=== PATIENT | female | born 1935 | race Caucasian/White ===

== ENCOUNTER → 2016-10-14 | Outpatient (CLI) | payer BC, OTHER ==
[~2016-10-14] MED LIST: ACET-1175 PO; ALBU0.5N2 NEB; ASPI81TA28 PO; CHOL1000 PO; CHOL100010 PO; CRG625 PO; CZR25 PO; DLN/100 PO; FURO20TA PO; GUAI1TAB69 PO; INSU3INJ3 SC; IPRASOL4 INH; LCTXP PO; LEVO-459 PO; LOSA100T65 PO; LVMIPEN SC; MAGNSUS5 PO; MCRK20 PO; MCTP EXT; MGNO400 PO; NVLGI SC; NVLGI/PEN SC; NVLGIPEN SC; PHEN-310 PO; PRD10 PO; PRED20TA PO; RRALBUTNEB INH; SENN-58 PO; SIMV20TA2 PO; SODIENE PR; ZNTT/150 PO; ZRX25 PO
[2016-10-14 09:04] LABS: HEMATOCRIT 36.7 % (37-47); MEAN CORPUSCULAR HGB CONC 32.7 g/dl (32-36); MEAN PLATELET VOLUME 10.6 fL (7.4-10.4); PLATELET COUNT 165 K/uL (130-400); RED BLOOD COUNT 3.43 M/uL (4.2-5.4); WHITE BLOOD COUNT 14.34 K/uL (4.8-10.8)
[2016-10-14 09:14] LABS: ALT/SGPT 23 U/L (12-78); BLOOD UREA NITROGEN 30 mg/dl (7-18); BUN/CREATININE RATIO 33.8 (10-20); CALCIUM 9.1 mg/dl (8.5-10.1); CARBON DIOXIDE 32 mmol/L (21-32); CHLORIDE 100 mmol/L (98-107); CREATININE 0.88 mg/dl (0.60-1.20); GLUCOSE 99 mg/dl (70-99); POTASSIUM 4.9 mmol/L (3.5-5.1); SODIUM 142 mmol/L (136-145)
[2016-10-14 09:17] LABS: ALB/GLOB RATIO 0.8 (0.9-2); ALKALINE PHOSPHATASE 115 U/L (45-117); AST/SGOT 25 U/L (15-37)
[2016-10-14 11:44] LABS: BASO % 0.4 %; BASO ABS # 0.06 K/uL (0-0.2); COMPLETE YES; EOS % 5.8 %; IG% 0.3 %; LYMPH % 52.8 %; LYMPH ABS # 7.57 K/uL (1.2-3.4); MONO % 5.8 %; NEUT % 34.9 %; SMUDGE CELLS PRESENT
== END ==
LOC: C.LABCC 08:43
PROVIDERS: ATTEND Internal Medicine
DX: C85.10 Unspecified B-cell lymphoma, unspecified site (principal)

== ENCOUNTER → 2016-10-15 | Outpatient (CLI) | payer BC, OTHER ==
[2016-10-15 08:14] LABS: ESTIMATED AVERAGE GLUCOSE 128 mg/dl; HA1C FLAG Normal (Normal)
== END | disposition home or self-care (01) ==
LOC: C.LABCC 07:47
PROVIDERS: ATTEND Internal Medicine
DX: E11.9 Type 2 diabetes mellitus without complications (principal)

== ENCOUNTER 2016-11-12 09:55 | Inpatient (IN) | payer BC, OTHER ==
[2016-11-12] VITALS (21 sets, daily range): BP systolic 100–125; BP diastolic 54–72; PULSE 60–92; TEMP 36.8–37.2; O2SAT 93–97; BMI 49.7
[~2016-11-12] VITALS: Ht 149.9 cm; Wt 102.2 kg
[~2016-11-12 09:55] MED LIST changes: -CHOL1000 PO; -CZR25 PO; -GUAI1TAB69 PO; -INSU3INJ3 SC; -IPRASOL4 INH; -LCTXP PO; -MCTP EXT; -NVLGI/PEN SC; -NVLGIPEN SC; -PRD10 PO; -PRED20TA PO; -RRALBUTNEB INH; -ZRX25 PO
[2016-11-12] MEDS ORDERED: PIPERACILLIN/TAZOBACTAM 4.5 GM/100ML D5W IV STA (10:10)
[2016-11-12] MEDS ORDERED: SODIUM CHLORIDE 0.9% 1000ML 1,000 ML IV ONE (10:10)
[2016-11-12] MEDS ORDERED: ALBUT/IPRATROP 3MG/0.5MG NEB 3 ML VIAL ONE (10:13)
[2016-11-12] MEDS ORDERED: LEVAQUIN 750MG / 150ML D5W IV ONE (10:15)
--- NOTE | 2016-11-12 10:15 | DIAGNOSTIC IMAGING REPORT ---
CHEST ONE VIEW PORTABLE CLINICAL HISTORY: B 1 dyspnea COMPARISON STUDY: 04/18/2016 FINDINGS: Congestive heart failure. Moderate cardiomegaly. Probable left pleural effusion. IMPRESSION: Congestive heart failure. Electronically signed by: Michael Mock M.D. 11/12/2016 10:13 AM Dictated Date/Time: 11/12/2016 10:11 AM
[2016-11-12] MEDS ORDERED: FUROSEMIDE 40 MG/4 ML VIAL IV STA (10:17)
--- NOTE | 2016-11-12 10:18 | EMERGENCY ROOM VISIT NOTE ---
History Report prepared by Pam: Santana Gale Under the Supervision of: Dr. Fili House M.D. First contact with patient: 09:56 Chief Complaint: RESPIRATORY DISTRESS Stated Complaint: RESPIRATORY DISTRESS Nursing Triage Summary: pt is from [facility] staff believes pt in CHF pt sats 83% on 3 litters pt is on bipap Rhonchi and decrease lung sounds pt has hx of leukemia pt given duoneb, solumedrol and albuterol 3 plus pedal edema pt nonverbal on arrival to ER History of Present Illness The patient is a 81 year old female with a history of CHF who presents to the ED with complaints of acute respiratory distress. As per EMS, the patient was found by a home nurse in this condition. EMS notes that the patient has 1+ edema at baseline, which appears to be increased. The patient was started on CPAP en route. She was also given DuoNeb and Albuterol treatments and given 125 mg Solu-Medrol. The patient was recently diagnosed with pneumonia but is not believed to be on antibiotics. The patient has a history of dementia. Complete history is limited secondary to dyspnea. Source of History: EMS History Limited By: dyspnea Onset: this morning Position: other (respiratory) Quality: other (distress) Timing: other (acute) Review of Systems ROS is limited secondary to dyspnea. Past Medical & Surgical Medical Problems: (1) Acute respiratory failure (2) B-cell lymphoma (3) Diabetes (4) Hypertension Surgical Problems: (1) H/O: hysterectomy (2) S/P knee surgery (3) S/P thyroid surgery Family History Cancer Diabetes mellitus Gallbladder disease Heart disease Hypertension Seizures Social History Smoking Status: Unknown if Ever Smoked Alcohol Use: none Drug Use: none Marital Status: Housing Status: correction Occupation Status: retired Current/Historical Medications Scheduled Albuterol Sulf (Albuterol Sulfate), 0.5 MG INH Q4 Aspirin (Aspirin Ec), 81 MG PO DAILY Carvedilol (Carvedilol), 6.25 MG PO BID Cholecalciferol (Vitamin D3), 1,000 UNITS PO DAILY Furosemide (Lasix), 40 MG PO BID@1600 Guaifenesin (Mucinex Maximum Strength), 1,200 MG PO BID Insulin Aspart (Novolog Flexpen), 30 UNITS SC DAILY Insulin Aspart (Novolog Flexpen), 45 UNITS SC BID Insulin Aspart (Novolog Flexpen), SC prn Insulin Detemir (Levemir Flextouch), 20 UNITS SC BID Losartan Potassium (Cozaar), 100 MG PO DAILY Magnesium Oxide (Magnesium-Oxide), 400 MG PO QAM Phenytoin Sodium (Dilantin), 100 MG PO DAILY Phenytoin Sodium Extended (Dilantin), 60 MG PO UD Potassium Chloride (Klor-Con M20), 20 MEQ PO BID Ranitidine (Zantac), 150 MG PO DAILY Sennosides-Docusate Sodium (Karissa-Colace), 1 TAB PO DAILY Simvastatin (Zocor), 20 MG PO QPM Scheduled PRN Acetaminophen (Tylenol), 650 MG PO Q4 PRN for Pain or Fever Sodium Phosphate/Biphosphate (Fleet Enema), 1 EA WI Q4D PRN for Constipation Miscellaneous Medications Prednisone (Prednisone), 20 MG PO Allergies Coded Allergies: No Known Allergies (Verified , 11/12/16) Physical Exam Vital Signs Date Time Temp Pulse Resp B/P Pulse Ox O2 Delivery O2 Flow Rate FiO2 11/12/16 12:46 96 BiPAP 50 11/12/16 12:19 86 30 131/77 97 BiPAP 50 11/12/16 11:50 87 30 137/70 95 BiPAP 50 11/12/16 11:38 50 11/12/16 11:35 87 28 144/73 98 BiPAP 70 11/12/16 11:16 85 28 114/53 98 BiPAP 70 11/12/16 10:59 123/60 11/12/16 10:55 85 96 11/12/16 10:53 119/66 11/12/16 10:40 81 93 11/12/16 10:28 93 BiPAP 11/12/16 10:25 89 126/60 98 BiPAP 11/12/16 10:25 88 95 11/12/16 10:24 126/60 11/12/16 10:10 91 94 11/12/16 10:08 92 35 97 BiPAP/CPAP 70 11/12/16 10:08 92 97 70 11/12/16 10:06 114 11/12/16 10:01 117/91 11/12/16 09:54 38.3 93 126/60 100 BiPAP Physical Exam GENERAL: Patient opens here eyes but is nonverbal. SKIN: No erythema, pallor, cyanosis or rash HEENT: Normal head, pupils equal, reactive to light and accommodation, crusting and mattering in the left eye. Neck: Without adenopathy, no neck vein distention. LUNGS: Wheezes and rhonchi in all lung motley. HEART: No murmurs. No gallops. No rubs ABDOMEN: Obese, soft, nontender. EXTREMITIES: No signs of trauma. 3+ pitting pretibial and pedal edema. No calf or thigh tenderness. NEUROLOGIC: Cranial nerves II-XII within normal limits. No gross motor sensory function deficits. Medical Decision & Procedures ER Provider Diagnostic Interpretation: X ray results are stated below per my interpretation and the radiologist's interpretation. CHEST ONE VIEW PORTABLE CLINICAL HISTORY: B 1 dyspnea COMPARISON STUDY: 04/18/2016 FINDINGS: Congestive heart failure. Moderate cardiomegaly. Probable left pleural effusion. IMPRESSION: Congestive heart failure. Electronically signed by: Michael Mock M.D. 11/12/2016 10:13 AM Dictated Date/Time: 11/12/2016 10:11 AM Laboratory Results 11/12/16 10:30 Red Blood Count 3.51, Mean Corpuscular Volume 109.1, Mean Corpuscular Hemoglobin 35.0, Mean Corpuscular Hemoglobin Concent 32.1, Mean Platelet Volume 10.5, Neutrophils (%) (Auto) 57.4, Lymphocytes (%) (Auto) 25.4, Monocytes (%) ( Auto) 16.0, Eosinophils (%) (Auto) 0.1, Basophils (%) (Auto) 0.3, Neutrophils # (Auto) 10.69, Lymphocytes # (Auto) 4.72, Monocytes # (Auto) 2.98, Eosinophils # (Auto) 0.01, Basophils # (Auto) 0.05 Test 11/12/16 10:30 11/12/16 11:00 11/12/16 11:21 11/12/16 11:37 White Blood Count 18.59 K/uL (4.8-10.8) Red Blood Count 3.51 M/uL (4.2-5.4) Hemoglobin 12.3 g/dL (12.0-16.0) Hematocrit 38.3 % (37-47) Mean Corpuscular Volume 109.1 fL (80-100) Mean Corpuscular Hemoglobin 35.0 pg (25-34) Mean Corpuscular Hemoglobin Concent 32.1 g/dl (32-36) Platelet Count 197 K/uL (130-400) Mean Platelet Volume 10.5 fL (7.4-10.4) Neutrophils (%) (Auto) 57.4 % Lymphocytes (%) (Auto) 25.4 % Monocytes (%) (Auto) 16.0 % Eosinophils (%) (Auto) 0.1 % Basophils (%) (Auto) 0.3 % Neutrophils # (Auto) 10.69 K/uL (1.4-6.5) Lymphocytes # (Auto) 4.72 K/uL (1.2-3.4) Monocytes # (Auto) 2.98 K/uL (0.11-0.59) Eosinophils # (Auto) 0.01 K/uL (0-0.5) Basophils # (Auto) 0.05 K/uL (0-0.2) RDW Standard Deviation 54.1 fL (36.4-46.3) RDW Coefficient of Variation 13.7 % (11.5-14.5) Immature Granulocyte % (Auto) 0.8 % Immature Granulocyte # (Auto) 0.14 K/uL (0.00-0.02) Nucleated RBC Absolute Count (auto) 0.07 K/uL (0-0) Nucleated Red Blood Cells % 0.4 % Prothrombin Time 12.0 SECONDS (9.0-12.0) Prothromb Time International Ratio 1.1 (0.9-1.1) Activated Partial Thromboplast Time 26.5 SECONDS (21.0-31.0) Partial Thromboplastin Ratio 1.0 Est Creatinine Clear Calc Drug Dose 29.7 ml/min Total Bilirubin 1.3 mg/dl (0.2-1) Aspartate Amino Transf (AST/SGOT) 47 U/L (15-37) Alanine Aminotransferase (ALT/SGPT) 34 U/L (12-78) Alkaline Phosphatase 121 U/L (45-117) Creatine Kinase MB 4.0 ng/ml (0.5-3.6) Troponin I 5.090 ng/ml (0-0.045) Total Protein 7.6 gm/dl (6.4-8.2) Albumin 2.6 gm/dl (3.4-5.0) Globulin 5.0 gm/dl (2.5-4.0) Albumin/Globulin Ratio 0.5 (0.9-2) Procalcitonin 0.85 ng/mL (0-0.5) Urine Color DK YELLOW Urine Appearance TURBID (CLEAR) Urine pH 5.0 (4.5-7.5) Urine Specific [place] 1.019 (1.000-1.030) Urine Protein 2+ (NEG) Urine Glucose (UA) NEG (NEG) Urine Ketones TRACE (NEG) Urine Occult Blood 3+ (NEG) Urine Nitrite POS (NEG) Urine Bilirubin 1+ (NEG) Urine Urobilinogen NEG (NEG) Urine Leukocyte Esterase TRACE (NEG) Urine WBC (Auto) 5-10 /hpf (0-5) Urine RBC (Auto) >30 /hpf (0-4) Urine Hyaline Casts (Auto) /lpf (0-5) Urine Epithelial Cells (Auto) >30 /lpf (0-5) Urine Bacteria (Auto) NEG (NEG) Urine Renal Epithelial Cells /lpf (0-5) Urine Pathogenic Casts /lpf (0) Urine Yeast (Auto) (NONE PRSENT) Bedside Hemoglobin 12.2 g/dl (12.0-16.0) Bedside Hematocrit 36 % (37-47) Bedside Sodium 140 mEq/L (135-144) Bedside Potassium 6.1 mEq/L (3.3-5.0) Bedside Chloride 101 mEq/L (101-112) Bedside Total CO2 30 mEq/l (24-31) Bedside Blood Urea Nitrogen 47 mg/dl (7-18) Bedside Creatinine 1.4 mg/dl (0.6-1.3) Bedside Glucose (other) 191 mg/dl (70-99) Bedside Lactic Acid Venous 2.65 mmol/L (0.90-1.70) Bedside Ionized Calcium (Christophe) 1.10 mmol/l (1.12-1.32) Creatine Kinase MB Ratio (0-3.0) Laboratory results as stated above per my review. Medications Administered Medications (Trade) Dose Ordered Sig/Margot Route Start Time Stop Time Status Last Admin Dose Admin Albuterol/ Ipratropium (Duoneb) 12 ml STK-MED ONCE .ROUTE 11/12/16 10:13 11/12/16 10:15 DC 11/12/16 10:13 12 ML Piperacillin Sod/ Tazobactam Sod (Zosyn Iv) 4.5 gm NOW STAT IV 11/12/16 10:10 11/12/16 10:16 DC 11/12/16 10:29 4.5 GM Levofloxacin (Levaquin / D5W) 750 mg NOW ONCE IV 11/12/16 10:15 11/12/16 10:16 DC 11/12/16 10:28 750 MG Furosemide 40 mg 40 mg NOW STAT IV 11/12/16 10:17 11/12/16 10:21 DC 11/12/16 10:28 40 MG Nitroglycerin/ Dextrose (Nitroglycerin/ D5w 100 Mcg/Ml) 250 ml @ 0 mls/hr Q0M PRN IV 11/12/16 10:30 11/12/16 13:46 DC 11/12/16 10:59 3 MLS/HR Sodium Bicarbonate (Sodium Bicarbonate 8.4% Inj) 50 ml NOW STAT IV 11/12/16 11:36 11/12/16 11:38 DC 11/12/16 11:41 50 ML Calcium Gluconate (Calcium Gluconate 10%) 1,000 mg NOW STAT IV 11/12/16 11:36 11/12/16 11:38 DC 11/12/16 11:41 1,000 MG ECG Indication: SOB/dyspnea Rate (beats per minute): 90 Rhythm: sinus rhythm Findings: LAFB, RBBB, ST depression (I, II, AvL, V4-V6), no ectopy, other (LVH) ED Course 0957: Past medical records reviewed. The patient was evaluated in room B1. A complete history and physical examination was performed. 1010: NSS 1000 ml @ 999 mls/hr, Zosyn 4.5 gm IV. 1015: Levofloxacin 750 mg IV. 1017: Lasix 40 mg IV. 1030: Nitroglycerin / dextrose 250 ml @ 0 mls/hr. 1040: Discussed the case with Dr. Palomino, [facility]. The patient will be evaluated. 1136: Calcium Gluconate 20% 1000 mg IV, Sodium Bicarbonate 8.4% 50 ml IV. Medical Decision I considered multiple diagnoses including CHF, COPD, pneumonia. The patient arrives here in extremis. The patient had already been placed on CPAP and was switched immediately to BiPAP. Patient was minimally responsive. Chest x-ray revealed congestive failure and possible infiltrates. The patient had significant wheezing and rhonchi on her exam. A septic workup was entertained. Multiple labs, cultures, EKG, imaging and antibiotics were administered. Troponin is markedly elevated. The patient was also given Lasix and nitroglycerin drip for the congestive failure. The patient's potassium was felt to be significantly elevated and therefore she was given 1 amp of calcium and 1 amp of bicarbonate. The potassium was rechecked and it did come down. The patient responded well. I had multiple discussions with family members. The patient remains a DO NOT RESUSCITATE. I also discussed care with the hospitalist Consults Time Called: 1038 Consulting Physician: Dr. Palomino [facility]. Returned Call: [phone]: Discussed the case with Dr. Palomino [facility]. The patient will be evaluated. Impression Primary Impression: Congestive heart failure Additional Impressions: Pneumonia Hyperkalemia Elevated troponin I level Critical Care I have personally spent greater than 35 minutes of critical care time in the direct management of this patient. This includes bedside care, interpretation of diagnostic studies, and testing, discussion with consultants, patient, and family members, and other required patient management activities. This 35 minutes is in excess of all separately billable procedures. Scribe Attestation The scribe's documentation has been prepared under my direction and personally reviewed by me in its entirety. I confirm that the note above accurately reflects all work, treatment, procedures, and medical decision making performed by me. Departure Information Dispostion Being Evaluated By Hospitalist Referrals [facility] (PCP) Patient Instructions Asthma - [facility], COPD - [facility], Croup - [facility], [facility] Health Problem Qualifiers
[2016-11-12] MEDS ORDERED: NITROGLYCERIN/D5W 100 MCG/ML 250 ML IV PRN ×2 (10:30→12:45)
[2016-11-12 10:47] LABS: BASO % 0.3 %; BASO ABS # 0.05 K/uL (0-0.2); COMPLETE YES; EOS % 0.1 %; HEMATOCRIT 38.3 % (37-47); IG% 0.8 %; LYMPH % 25.4 %; LYMPH ABS # 4.72 K/uL (1.2-3.4); MEAN CELL VOLUME 109.1 fL (80-100); MEAN CORPUSCULAR HGB CONC 32.1 g/dl (32-36); MEAN PLATELET VOLUME 10.5 fL (7.4-10.4); NEUT % 57.4 %; PLATELET COUNT 197 K/uL (130-400); RED BLOOD COUNT 3.51 M/uL (4.2-5.4); WHITE BLOOD COUNT 18.59 K/uL (4.8-10.8)
[2016-11-12 10:53] LABS: INR 1.1 (0.9-1.1)
[2016-11-12] MEDS ORDERED: GUAI1TAB69 PO (10:55)
[2016-11-12] MEDS ORDERED: INSU3INJ3 SC (10:55)
[2016-11-12] MEDS ORDERED: RRALBUTNEB INH (10:55)
[2016-11-12] MEDS ORDERED: NVLGIPEN SC (10:55)
[2016-11-12] MEDS ORDERED: CHOL1000 PO (10:55)
[2016-11-12] MEDS ORDERED: NVLGI/PEN SC ×2 (10:55)
[2016-11-12] MEDS ORDERED: PRED20TA PO (10:55)
[2016-11-12 11:11] LABS: BUN/CREATININE RATIO 30.4 (10-20); CALCIUM 9.1 mg/dl (8.5-10.1); CREATININE 1.6 mg/dl (0.60-1.20); POTASSIUM 6.3 mmol/L (3.5-5.1)
[2016-11-12 11:13] LABS: ALB/GLOB RATIO 0.5 (0.9-2)
[2016-11-12 11:19] LABS: URINE APPEARANCE TURBID (CLEAR); URINE COLOR DK YELLOW; URINE EPITHELIAL CELL AUTO >30 /lpf (0-5); URINE NITRITE POS (NEG); URINE SPECIFIC GRAVITY 1.019 (1.000-1.030); UROBILINOGEN NEG (NEG); ZZURINE CULT IF INDIC CATH YES
[2016-11-12 11:28] LABS: URINE BILIRUBIN 1+ (NEG)
[2016-11-12 11:29] LABS: MANUAL MICROSCOPIC REQUIRED? NO; REVIEW REQ? YES
[2016-11-12] MEDS ORDERED: CALCIUM GLUCONATE 10% 10 ML VIAL IV STA (11:36)
[2016-11-12] MEDS ORDERED: SODIUM BICARB 8.4% INJ 50 MEQ/50 ML SYR IV STA (11:36)
[2016-11-12 11:39] LABS: ISTAT CREATININE 1.4 mg/dl (0.6-1.3); ISTAT HEMOGLOBIN 12.2 g/dl (12.0-16.0); ISTAT IONIZED CALCIUM 1.1 mmol/l (1.12-1.32)
[2016-11-12] MEDS ORDERED: ONDANSETRON INJ 2 MG/ML 2 ML VIAL IV PRN (11:45)
[2016-11-12] MEDS ORDERED: METOPROLOL TARTRATE 1 MG/ML VIAL IV. PRN (11:45)
[2016-11-12] MEDS ORDERED: PHENYTOIN SODIUM ER 30 MG CAP PO SCH ×3 (11:45→16:30)
[2016-11-12] MEDS ORDERED: ZOLPIDEM TARTRATE 5 MG TAB PO PRN (11:45)
[2016-11-12] MEDS ORDERED: MAGNESIUM HYDROXIDE SUSP 30 ML UDC PO PRN (11:45)
[2016-11-12] MEDS ORDERED: NITROGLYCERIN 0.4 MG SL PER TAB CHARGE SL PRN (11:45)
[2016-11-12] MEDS ORDERED: HydrALAZINE HCL 20 MG/ML VIAL IV. PRN (11:45)
[2016-11-12] MEDS ORDERED: ACETAMINOPHEN 325 MG TAB PO PRN (11:45)
[2016-11-12] MEDS ORDERED: ALUMINUM/MAGNESIUM/SIMETH (MAALOX MAX) 30 ML UDC PO PRN (11:45)
[2016-11-12] MEDS ORDERED: MoRPHine SULFATE 2 MG/ML CARP IV PRN (12:45)
--- NOTE | 2016-11-12 12:49 | History and Physical ---
History & Physical Date & Time of Service: Nov 12, 2016 at 11:58 Chief Complaint: Respiratory Distress Primary Care Physician: Sally Garcia History of Present Illness Source: family Patient is an 81 y/o female, with PMHx of systolic CHF, b-cell lymphoma, ARF, dementia, CVA, HTN, DM, hyperlipidemia, and seizure disorder, who presented to the ED from [facility] because of acute respiratory failure. History came from family as patient is very lethargic and has BIPAP on. Per family, patient started to become SOB on 11/10. This morning when [facility] staff checked on patient, she was very lethargic with extreme difficulty with breathing. Patient has baseline bilateral lower extremity edema, but per family, worse today. En Route to hospital, patient was started on CPAP and given DuoNeb and Albuterol treatments, and 125 mg IV Solu-Medrol. ROS cannot be obtained due to patient's status. Past Medical/Surgical History Medical Problems: 1. B-cell lymphoma 2. Diabetes 3. Hypertension 4. Acute respiratory failure 5. CHF 6. CVA 7. Seizure disorder 8. Hyperlipidemia Surgical Problems: 1. Hysterectomy 2. S/P knee surgery 3. S/P thyroid surgery Family History Cancer Diabetes mellitus Gallbladder disease Heart disease Hypertension Seizures Social History Smoking Status: Unknown if Ever Smoked Drug Use: none Marital Status: Housing status: fdc Occupational Status: retired Immunizations History of Tetanus Vaccine?: 1994 History of Pneumococcal: History of Hepatitis B Vaccine: No Multi-Drug Resistant Organisms History of MDRO: No Allergies Coded Allergies: No Known Allergies (Verified , 11/12/16) Home Medications Scheduled Albuterol Sulf (Albuterol Sulfate), 0.5 MG INH Q4 Aspirin (Aspirin Ec), 81 MG PO DAILY Carvedilol (Carvedilol), 6.25 MG PO BID Cholecalciferol (Vitamin D3), 1,000 UNITS PO DAILY Furosemide (Lasix), 40 MG PO BID@1600 Guaifenesin (Mucinex Maximum Strength), 1,200 MG PO BID Insulin Aspart (Novolog Flexpen), 30 UNITS SC DAILY Insulin Aspart (Novolog Flexpen), 45 UNITS SC BID Insulin Aspart (Novolog Flexpen), SC prn Insulin Detemir (Levemir Flextouch), 20 UNITS SC BID Losartan Potassium (Cozaar), 100 MG PO DAILY Magnesium Oxide (Magnesium-Oxide), 400 MG PO QAM Phenytoin Sodium (Dilantin), 100 MG PO DAILY Phenytoin Sodium Extended (Dilantin), 60 MG PO UD Potassium Chloride (Klor-Con M20), 20 MEQ PO BID Ranitidine (Zantac), 150 MG PO DAILY Sennosides-Docusate Sodium (Karissa-Colace), 1 TAB PO DAILY Simvastatin (Zocor), 20 MG PO QPM Scheduled PRN Acetaminophen (Tylenol), 650 MG PO Q4 PRN for Pain or Fever Sodium Phosphate/Biphosphate (Fleet Enema), 1 EA AL Q4D PRN for Constipation Miscellaneous Medications Prednisone (Prednisone), 20 MG PO Physical Exam Vital Signs Date Time Temp Pulse Resp B/P Pulse Ox O2 Delivery O2 Flow Rate FiO2 11/12/16 11:50 87 30 137/70 95 BiPAP 50 11/12/16 11:38 50 11/12/16 11:35 87 28 144/73 98 BiPAP 70 11/12/16 11:16 85 28 114/53 98 BiPAP 70 11/12/16 10:59 123/60 11/12/16 10:55 85 96 11/12/16 10:53 119/66 11/12/16 10:40 81 93 11/12/16 10:28 93 BiPAP 11/12/16 10:25 89 126/60 98 BiPAP 11/12/16 10:25 88 95 11/12/16 10:24 126/60 11/12/16 10:10 91 94 11/12/16 10:08 92 35 97 BiPAP/CPAP 70 11/12/16 10:08 92 97 70 11/12/16 10:06 114 11/12/16 10:01 117/91 11/12/16 09:54 38.3 93 126/60 100 BiPAP General Appearance: + mild distress, + pertinent finding (BIPAP on ) Head: normocephalic, atraumatic Eyes: PERRL Neck: supple Respiratory/Chest: + decreased breath sounds, + rhonchi Cardiovascular: regular rate, rhythm Abdomen/GI: normal bowel sounds, non tender, soft Extremities/Musculoskelatal: + pedal edema, + swelling (+1 pitting edema of bilateral lower extremities from feet to mid shins ) Neurologic/Psych: + pertinent finding (lethargic ) Skin: normal color, warm/dry, no rash Diagnostics Laboratory Results Results Past 24 Hours Test 11/12/16 10:30 11/12/16 11:00 11/12/16 11:21 11/12/16 11:37 Range/Units White Blood Count 18.59 4.8-10.8 K/uL Red Blood Count 3.51 4.2-5.4 M/uL Hemoglobin 12.3 12.0-16.0 g/dL Hematocrit 38.3 37-47 % Mean Corpuscular Volume 109.1 80-100 fL Mean Corpuscular Hemoglobin 35.0 25-34 pg Mean Corpuscular Hemoglobin Concent 32.1 32-36 g/dl Platelet Count 197 130-400 K/uL Mean Platelet Volume 10.5 7.4-10.4 fL Neutrophils (%) (Auto) 57.4 % Lymphocytes (%) (Auto) 25.4 % Monocytes (%) (Auto) 16.0 % Eosinophils (%) (Auto) 0.1 % Basophils (%) (Auto) 0.3 % Neutrophils # (Auto) 10.69 1.4-6.5 K/uL Lymphocytes # (Auto) 4.72 1.2-3.4 K/uL Monocytes # (Auto) 2.98 0.11-0.59 K/uL Eosinophils # (Auto) 0.01 0-0.5 K/uL Basophils # (Auto) 0.05 0-0.2 K/uL RDW Standard Deviation 54.1 36.4-46.3 fL RDW Coefficient of Variation 13.7 11.5-14.5 % Immature Granulocyte % (Auto) 0.8 % Immature Granulocyte # (Auto) 0.14 0.00-0.02 K/uL Nucleated RBC Absolute Count (auto) 0.07 0-0 K/uL Nucleated Red Blood Cells % 0.4 % Prothrombin Time 12.0 9.0-12.0 SECONDS Prothromb Time International Ratio 1.1 0.9-1.1 Activated Partial Thromboplast Time 26.5 21.0-31.0 SECONDS Partial Thromboplastin Ratio 1.0 Sodium Level 141 136-145 mmol/L Potassium Level 6.3 3.5-5.1 mmol/L Chloride Level 102 98-107 mmol/L Carbon Dioxide Level 30 21-32 mmol/L Anion Gap 9.0 17.0 16-25 mmol/L Blood Urea Nitrogen 49 7-18 mg/dl Creatinine 1.60 0.60-1.20 mg/dl Est Creatinine Clear Calc Drug Dose 29.7 ml/min Estimated GFR () 34.2 Estimated GFR (Non- 29.5 BUN/Creatinine Ratio 30.4 10-20 Random Glucose 156 70-99 mg/dl Calcium Level 9.1 8.5-10.1 mg/dl Total Bilirubin 1.3 0.2-1 mg/dl Aspartate Amino Transf (AST/SGOT) 47 15-37 U/L Alanine Aminotransferase (ALT/SGPT) 34 12-78 U/L Alkaline Phosphatase 121 45-117 U/L Total Protein 7.6 6.4-8.2 gm/dl Albumin 2.6 3.4-5.0 gm/dl Globulin 5.0 2.5-4.0 gm/dl Albumin/Globulin Ratio 0.5 0.9-2 Procalcitonin 0.85 0-0.5 ng/mL Urine Color DK YELLOW Urine Appearance TURBID CLEAR Urine pH 5.0 4.5-7.5 Urine Specific [place] 1.019 1.000-1.030 Urine Protein 2+ NEG Urine Glucose (UA) NEG NEG Urine Ketones TRACE NEG Urine Occult Blood 3+ NEG Urine Nitrite POS NEG Urine Bilirubin 1+ NEG Urine Urobilinogen NEG NEG Urine Leukocyte Esterase TRACE NEG Urine WBC (Auto) 5-10 0-5 /hpf Urine RBC (Auto) >30 0-4 /hpf Urine Hyaline Casts (Auto) 0-5 /lpf Urine Epithelial Cells (Auto) >30 0-5 /lpf Urine Bacteria (Auto) NEG NEG Urine Renal Epithelial Cells 0-5 /lpf Urine Pathogenic Casts 0 /lpf Urine Yeast (Auto) NONE PRSENT Bedside Hemoglobin 12.2 12.0-16.0 g/dl Bedside Hematocrit 36 37-47 % Bedside Sodium 140 135-144 mEq/L Bedside Potassium 6.1 3.3-5.0 mEq/L Bedside Chloride 101 101-112 mEq/L Bedside Total CO2 30 24-31 mEq/l Bedside Blood Urea Nitrogen 47 7-18 mg/dl Bedside Creatinine 1.4 0.6-1.3 mg/dl Bedside Glucose (other) 191 70-99 mg/dl Bedside Lactic Acid Venous 2.65 0.90-1.70 mmol/L Bedside Ionized Calcium (Christophe) 1.10 1.12-1.32 mmol/l Creatine Kinase MB Ratio 0-3.0 Test 11/12/16 11:55 Range/Units Microbiology Results 11/12/16 Blood Culture, Received Pending 11/12/16 Blood Culture, Received Pending 11/12/16 Urine Culture, Received Pending Diagnostic Radiology CHEST ONE VIEW PORTABLE CLINICAL HISTORY: B 1 dyspnea COMPARISON STUDY: 04/18/2016 FINDINGS: Congestive heart failure. Moderate cardiomegaly. Probable left pleural effusion. IMPRESSION: Congestive heart failure. Electronically signed by: Michael Mock M.D. 11/12/2016 10:13 AM Dictated Date/Time: 11/12/2016 10:11 AM The status of this report is Signed. Draft = Not yet reviewed or approved by Radiologist. Signed = Reviewed and approved by Radiologist. <AttendingPhy></AttendingPhy> <FamilyPhy>[facility]</FamilyPhy> <PrimaryPhy> [facility]</PrimaryPhy> <UnitNumber>[id number]</UnitNumber> <VisitNumber> [id number]</VisitNumber EKG MODE DONALD ID:[id number] 12-NOV-2016 10:22:07 [facility] Normal sinus rhythm Right bundle branch block Left anterior fascicular block Bifascicular block Left ventricular hypertrophy with repolarization abnormality Cannot rule out Septal infarct (cited on or before 16-APR-2016) Abnormal ECG When compared with ECG of 18-APR-2016 06:19, T wave amplitude has increased in Inferior leads T wave inversion less evident in Anterior leads ... 25mm/s 10mm/mV 150Hz 8.0 SP2 12SL 241 JORGE: 9 Referred by: [facility] Confirmed By: JOEL Dickinson. rate 90 BPM AL interval 146 ms QRS duration 146 ms QT/QTc 400/489 ms P-R-T axes 23 -52 98 1935 (81 yr) Female 114in Room: Loc:15 [employer] Secretary:REJI Cano ind: Impression Assessment and Plan 81 y/o female, with PMHx of systolic CHF, b-cell lymphoma, ARF, dementia, CVA, HTN, DM, hyperlipidemia, and seizure disorder, who presented to the ED from [facility] because of acute respiratory failure. Acute respiratory failure/acute on chronic systolic CHF exacerbation: - Admit ICU - CXR- Congestive heart failure. -- Repeat CXR tomorrow AM - IV Lasix 40 mg BID - IV Nitro drip - IV Morphine - DuoNebs PRN - Hold Coreg 6.25 mg PO BID. Start Lopressor 5 mg q6hrs - Slo in place, monitor I&Os and daily weight - Trend cardiac enzymes - ECHO in 04/2016- EF of 30%. Recheck ECHO. - Recheck EKG - U/A dirty, pending urine culture - Pending blood cultures - Follow CMP and CBC ?Pneumonia, ?aspiration pneumonia: - IV Levaquin + IV Zosyn (started on 11/12) - Pending MRSA swab - NPO, pending speech evaluation - Repeat lactic acid DEJUAN on CKD, ?stage III: - Treat with IV Lasix - Follow BMP Hyperkalemia: - Given IV sodium bicarbonate + calcium gluconate - Recheck BMP at 1400 T2DM: - Decrease Levemir 20 units BID to 10 units BID while NPO - BSG ACHS with sliding insulin scale Seizure disorder: - Continue Phenytoin - Check Phenytoin level HTN: - Hold Cozaar 100 mg PO daily - Hydralazine 10 mg IV PRN q6hrs for SBP >170, DBP >100 and HR <70 Hyperlipidemia: - Hold Zocor 20 mg PO daily. Start Atorvastatin 40 mg PO daily GI Prophylaxis: - Continue Zantac - Maalox PRN - IV Zofran PRN - Colace and/or Milk of Mag PRN DVT prophylaxis: - Heparin 5000 units SQ q12 hrs - CANDACE and SCDs Dispo: - Resident of [facility] i personally examined pt and verified all longoria points w T [place] PAC awakens to voice, notes w bipap she's feeling like she's getting enough air - but otherwise doesn't give much as far as HPI/ROS family present- updated extensively pt seen multiple times today d/w dr ortiz as well vitals noted, laying in bed on bipap - w bipap appearing nad. lungs diminished bibasilar, questionable "cardiac wheeze" initially - diffuse faint wet sounding expiratory tones; no focal neurologic deficits. EKG w more pronounced flipped T 's than previous tracings, labs and diagnostics noted acute hypoxic respiratory failure - appearing due to pneumonia --> cardiac stress --> acute on chronic mixed CHF exacerbation --abx, lasix, bipap, supportive care ARF - due to above --supportive care, treat above elevated troponin --appearing most c/w severe demand ischemia from above, although w focal EKG changes and trop of 5, may be severe enough demand ischemia to consider as NQWMI - will follow trop, repeat echo. depending on course, may need to have cardiology see in regards to ?cath --treat above, meds to reduce myocardial strain DVT proph Level of Care Telemetry Resuscitation Status DO NOT RESUSCITATE VTE Prophylaxis VTE Risk Assessment Done? Y/N: Yes Risk Level: Moderate Given or contraindicated: Unfractionated heparin SQ, T.E.D. Stockings, SCD's
[2016-11-12] MEDS ORDERED: POLYETHYLENE (MIRALAX) 17 GM PACK PO PRN (13:30)
[2016-11-12] MEDS ORDERED: PIPERACILL/TAZOBAC CONSULT ACTIVE PRN (14:00)
[2016-11-12] MEDS ORDERED: DEXTROSE 50% 50 ML SYR IV PRN (14:00)
[2016-11-12] MEDS ORDERED: GLUCAGON FOR INJ 1 MG VIAL SQ PRN (14:00)
[2016-11-12] MEDS ORDERED: GLUCOSE 40% GEL 15 GM TUBE PO PRN (14:00)
[2016-11-12] MEDS ORDERED: GLUCOSE 10 TABS/TUBE PO PRN (14:00)
[2016-11-12] MEDS ORDERED: LEVOFLOXACIN CONSULT ACTIVE PRN (14:45)
[2016-11-12] MEDS ORDERED: NURSING VERBAL MED ORDER ONE (15:15)
[2016-11-12] MEDS: PIPERACILL/TAZOBAC IV 4.5 GM in DEXTROSE 5% 100ML IV SCH (15:18)
[2016-11-12] MEDS: FUROSEMIDE INJ 40 MG in SYRINGE 0 ML IV SCH (15:19)
[2016-11-12] MEDS ORDERED: PERFLUTREN LIPID MICROSPHERE (DEFINITY) IV ONE (15:50)
[2016-11-12] MEDS ORDERED: INSULIN ASPART 100 UNITS/ML 3 ML PEN SC SCH ×2 (16:00)
[2016-11-12 16:46] LABS: IPAP 14; ISTAT ARTERIAL BLOOD GAS HCO3 31 meq/L (19-24); ISTAT ARTERIAL BLOOD GAS PCO2 54 mmHg (35-46); ISTAT ARTERIAL BLOOD GAS PO2 76 mmHg (80-95); ISTAT ARTERIAL BLOOD GAS pH 7.37 (7.35-7.45); ISTAT CARBON DIOXIDE 33 mEq/l (24-31); ISTAT DELIVERY SYSTEM BIPAP; ISTAT FIO2 50 %; ISTAT RATE 28; ISTAT SITE L Brachial
[2016-11-12] MEDS ORDERED: PHENYTOIN IV SCH (17:15)
[2016-11-12] MEDS ORDERED: FUROSEMIDE 40 MG/4 ML VIAL IV SCH (17:35)
[2016-11-12] MEDS ORDERED: FUROSEMIDE INJ 40 MG in SYRINGE 0 ML IV SCH (17:45)
[2016-11-12 18:11] LABS: BUN/CREATININE RATIO 33.3 (10-20); CALCIUM 8.8 mg/dl (8.5-10.1); CREATININE 1.6 mg/dl (0.60-1.20); POTASSIUM 5.3 mmol/L (3.5-5.1)
[2016-11-12] MEDS: SODIUM CHLOR 0.9% 10ML FLUSH 20 ML in SYRINGE 0 ML IV SCH (18:18)
[2016-11-12] MEDS: PHENYTOIN IV SCH (18:18)
[2016-11-12] MEDS: FAMOTIDINE IV INJ 10 MG in DEXTROSE 5% 100ML 100 ML IV SCH (18:18)
[2016-11-12] MEDS: METOPROLOL TARTRATE 1 MG/ML VIAL IV. SCH (18:19)
--- NOTE | 2016-11-12 18:29 | CRITICAL CARE CONSULTATION ---
DATE OF CONSULTATION: 11/12/2016 DATE OF CONSULTATION: 11/12/2016. CHIEF COMPLAINT: Shortness of breath. 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 She lives at [facility] and was brought to the Emergency Department after being found short of breath. Her son tells me she appeared short of breath 2 days ago, but that may have improved. The patient cannot give me any history at the present time secondary to BiPAP mask being in place and due to some metabolic encephalopathy. EMS was summoned this morning and they gave her a DuoNeb as well as 125 mg of Solu-Medrol. She was placed on CPAP on her way to the Emergency Department. In the Emergency Department, an EKG was done which showed more prominent T-wave inversions in leads 1 and aVL compared to April of this year. I should also note that she has a history of a decreased ejection fraction of 30-35% on an echocardiogram from April of last year. In the Emergency Room, she received 40 mg of Lasix and nitroglycerin drip at 5 mcg per kilogram per minute. She also received Levaquin 750 mg IV and Zosyn 4.5 grams IV. She received 1 liter of normal saline also. Her chest x-ray was concerning for pulmonary edema. She received calcium gluconate and sodium bicarbonate secondary to a potassium of 6.1 by point of care. BiPAP was also eventually placed at 14/5, FIO2 50%. I do not see that she desaturated in the Emergency Department but she was found to have a temperature of 38.3. Her son reports that she may have been coughing on Wednesday and family notes that in the past she has had a modified diet and that she can sometimes choke on her food. She was treated for aspiration pneumonia last year as well. She is on prednisone but family does not know how long she has been on that drug. She does not wear BIPAP at night to their knowledge. PAST MEDICAL HISTORY: B-cell lymphoma, CVA with right hemiparesis in 2003 resulting in seizure disorder. No seizures in many years. Diabetes mellitus, obesity, gout, hypertension, hyperlipidemia, non-ST segment elevation myocardial infarction in April of 2016. PAST SURGICAL HISTORY: Status post cataract extractions, hysterectomy, knee surgery and thyroid surgery. ALLERGIES: No known drug allergies. OUTPATIENT MEDICATIONS: Albuterol q. 4 hours, aspirin 81 mg daily, carvedilol 6.25 mg p.o. b.i.d., vitamin D3 1000 units p.o. daily, Lasix 40 mg p.o. b.i.d., guaifenesin 1200 mg b.i.d., insulin NovoLog 30 units daily, 45 units b.i.d. and unknown dose in the p.m., Levemir 20 units subQ b.i.d., Cozaar 100 mg daily, magnesium oxide 400 mg daily, Dilantin ER 100 mg p.o. daily and 60 mg in the evening, potassium chloride 20 mg p.o. b.i.d., Zantac 150 mg p.o. daily, Karissa-Colace 1 tab daily, Zocor 20 mg daily, Tylenol and Fleet enema p.r.n., prednisone 20 mg daily. SOCIAL HISTORY: She is and has been living in [facility] since 2007. She has never smoked and has both a son and a daughter who have power of senior trial attorney. FAMILY HISTORY: Significant for diabetes, heart disease, hypertension, gallbladder disease and cancer. REVIEW OF SYSTEMS: Not obtainable secondary to the patient's altered mental status. At baseline, she has difficulty with her memory, but can generally carry on a conversation. Sometime she has difficulty getting words out. She is wheelchair bound. PHYSICAL EXAMINATION: GENERAL: This is an obese woman lying in bed on BiPAP, mildly tachypneic. VITAL SIGNS: Maximum temperature 38.3, heart rate 88, respiratory rate 22-31, blood pressure 112/54, oxygen saturation 94% on BiPAP 16/7 50%. HEAD, EYES, EARS, NOSE, AND THROAT: Pupils are difficult to discern as she keeps squinting her eyes. Oral examination is mildly dry. She wears dentures. Posterior pharynx is not visible through the BiPAP mask. NECK: Big and thick. No elevated jugular venous distention noted. LUNGS: Decreased breath sounds throughout with some mild rales in the bases posteriorly. HEART: Distant regular rate and rhythm. No murmurs noted. ABDOMEN: Obese, firm, nontender, mildly distended, hypoactive bowel sounds. EXTREMITIES: With 3+ pedal edema. Toes are warm. Capillary refill is adequate. Radial pulses are 1+ bilaterally. NEUROLOGIC: She will open her eyes and answer some yes or no questions, but then falls back asleep. She attempts to follow commands but is profoundly weak. She can wiggle her toes and her strength in her proximal and distal left upper extremity is 3/5. Her hand grasp on the right is 3/5 as well, but she cannot lift the arm. LABORATORY DATA: Sodium 140, potassium 6.1, chloride 101, CO2 30, BUN 47, creatinine 1.4, blood sugar 191. Lactic acid 2.65. Ionized calcium 1.1, troponin 5.09. Procalcitonin 0.85. White blood cell count 18.59, hemoglobin 12.5, hematocrit 38.3, platelets 197. PT, PTT, INR within normal limits, pH 7.37, pCO2 54, pO2 76, HCO3 31. Dilantin level 11.1. Urinalysis with positive nitrites, 3+ blood, 5-10 white cells, greater than 30 epithelial cells. Blood cultures and urine culture pending. Portable chest x-ray was reviewed and shows pulmonary edema and possibly developing right lower lobe infiltrate. EKG normal sinus rhythm, right bundle branch block, T-wave inversions in 1 and V2 as well as AVL more prominent than previous EKG. IMPRESSION: 1. Acute hypoxemic respiratory failure which may have started with aspiration and now with pulmonary edema. 2. Pulmonary edema likely secondary to congestive heart failure. Echocardiogram has been completed but not resulted yet. 3. Possible aspiration pneumonia versus pneumonitis. 4. Acute kidney injury. 5. Hyperkalemia secondary to #4 as well as supplemental potassium on a scheduled basis. 6. Elevated troponin, rule out non-ST segment elevation myocardial infarction. 7. History of seizure disorder status post stroke. 8. Metabolic encephalopathy, possible underlying dementia. 9. Diabetes mellitus with hyperglycemia. PLAN: 1. Continue Zosyn and Levaquin, await further culture data. 2. She has had 2 doses of 40 mg of IV Lasix without much response. I have ordered an additional 40 mg now. 3. Repeat chemistries and follow up another potassium this afternoon. 4. Rule out myocardial infarction with serial cardiac enzymes and await echocardiogram results. 5. Provide DVT and GI prophylaxis. 6. Change prednisone to Solu-Medrol 20 mg IV b.i.d. 7. Change any essential oral medications to the IV form. 8. The nitroglycerin infusion has been weaned off. 9. Maintain n.p.o. for now. 10. I discussed a PICC line with her family and they are reviewing the consent presently. 11. CODE STATUS WAS DISCUSSED AND HER SON AND DAUGHTER HAVE OPTED FOR A LEVEL 5. I discussed the patient's plan of care with her family in detail. There are very nice and very reasonable. We will continue forward with the hope that she will improve with supportive care right now. They are very much interested in her comfort. Questions were answered and support was provided. Critical care time 60 minutes. NEEMA
[2016-11-12] MEDS: INSULIN ASPART 100 UNITS/ML 3 ML PEN SC SCH (18:37)
[2016-11-12] MEDS: ALBUT/IPRATROP 3MG/0.5MG NEB 3 ML VIAL INH SCH ×2 (19:40→23:19)
[2016-11-12] MEDS ORDERED: METHYLPREDNISOLONE IV 20 MG in SYRINGE 0 ML IV SCH (21:00)
[2016-11-12] MEDS ORDERED: CARVEDILOL 6.25 MG TAB PO SCH (21:00)
[2016-11-12] MEDS ORDERED: SIMVASTATIN 20 MG TAB PO SCH (21:00)
[2016-11-12] MEDS ORDERED: INSULIN DETEMIR FLEXPEN/FLEX TOUCH 100 UNITS/ML 3ML SC SCH ×2 (21:00)
[2016-11-12] MEDS: HEPARIN SOD 5000 UNIT/0.5 ML CARP SQ SCH (21:59)
[2016-11-12 23:03] LABS: BUN/CREATININE RATIO 34.2 (10-20); CALCIUM 8.8 mg/dl (8.5-10.1); CREATININE 1.7 mg/dl (0.60-1.20); POTASSIUM 4.6 mmol/L (3.5-5.1)
[2016-11-13] VITALS (19 sets, daily range): BP systolic 116–150; BP diastolic 54–96; PULSE 70–104; TEMP 36.7–37.3; O2SAT 91–98
[2016-11-13] MEDS: PIPERACILL/TAZOBAC IV 4.5 GM in DEXTROSE 5% 100ML IV SCH ×3 (00:36→16:10)
[2016-11-13] MEDS: SODIUM CHLOR 0.9% 10ML FLUSH 20 ML in SYRINGE 0 ML IV SCH ×4 (00:37→18:10)
[2016-11-13] MEDS: PHENYTOIN IV SCH ×4 (00:38→18:10)
[2016-11-13] MEDS: METOPROLOL TARTRATE 1 MG/ML VIAL IV. SCH ×4 (00:39→18:13)
[2016-11-13] MEDS: INSULIN ASPART 100 UNITS/ML 3 ML PEN SC SCH ×5 (00:44→20:52)
[2016-11-13] MEDS: ALBUT/IPRATROP 3MG/0.5MG NEB 3 ML VIAL INH SCH ×5 (03:34→19:33)
[2016-11-13 06:13] LABS: CALCIUM 8.7 mg/dl (8.5-10.1); CREATININE 1.5 mg/dl (0.60-1.20); POTASSIUM 4.1 mmol/L (3.5-5.1)
[2016-11-13] MEDS: FAMOTIDINE IV INJ 10 MG in DEXTROSE 5% 100ML 100 ML IV SCH ×2 (06:14→18:09)
[2016-11-13] MEDS: FUROSEMIDE INJ 40 MG in SYRINGE 0 ML IV SCH ×2 (06:16→16:10)
[2016-11-13 06:25] LABS: ALB/GLOB RATIO 0.5 (0.9-2); PHOSPHORUS 3.9 mg/dl (2.5-4.9); THYROID STIMULATING HORMONE 1.51 uIu/ml (0.300-4.500)
[2016-11-13] MEDS ORDERED: PHARMACY GLYCEMIC MGMT CONSULT PRN (07:00)
--- NOTE | 2016-11-13 07:00 | DIAGNOSTIC IMAGING REPORT ---
CHEST ONE VIEW PORTABLE CLINICAL HISTORY: CHF exacerbation dyspnea COMPARISON STUDY: 11/12/2016 FINDINGS: Improving bilateral parenchymal infiltrates versus components of congestive failure. Moderate residual in the mid lung regions bilaterally. Persistent poor visibility left hemidiaphragm. IMPRESSION: Mild improvement of the hemithoraces. Moderate residual perihilar and left basilar parenchymal prominence Electronically signed by: Michael Mock M.D. 11/13/2016 6:59 AM Dictated Date/Time: 11/13/2016 6:58 AM
[2016-11-13] MEDS ORDERED: BUMETANIDE SOLN 1 MG/4 ML VIAL IV ONE (07:15)
[2016-11-13] MEDS ORDERED: BUMETANIDE IV 1 MG in SYRINGE 0 ML IV ONE (07:30)
[2016-11-13] MEDS ORDERED: ALBUMIN HUMAN 25% 12.5 GM/50 ML VIAL IV STA (07:42)
[2016-11-13 07:50] LABS: IPAP 17; ISTAT ALLEN TEST Pass; ISTAT ARTERIAL BLOOD GAS HCO3 34 meq/L (19-24); ISTAT ARTERIAL BLOOD GAS PCO2 52 mmHg (35-46); ISTAT ARTERIAL BLOOD GAS PO2 104 mmHg (80-95); ISTAT ARTERIAL BLOOD GAS pH 7.42 (7.35-7.45); ISTAT CARBON DIOXIDE 36 mEq/l (24-31); ISTAT DELIVERY SYSTEM BIPAP; ISTAT FIO2 50 %; ISTAT RATE 30; ISTAT SITE L Radial
[2016-11-13 08:16] LABS: BASO % 0.1 %; BASO ABS # 0.02 K/uL (0-0.2); COMPLETE YES; EOS % 0.1 %; HEMATOCRIT 34.2 % (37-47); IG% 0.6 %; LYMPH % 31.3 %; LYMPH ABS # 4.78 K/uL (1.2-3.4); MEAN CELL VOLUME 107.9 fL (80-100); MEAN CORPUSCULAR HEMOGLOBIN 34.7 pg (25-34); MEAN CORPUSCULAR HGB CONC 32.2 g/dl (32-36); MEAN PLATELET VOLUME 10.3 fL (7.4-10.4); MONO % 10.3 %; NEUT % 57.6 %; PLATELET COUNT 159 K/uL (130-400); RED BLOOD COUNT 3.17 M/uL (4.2-5.4); WHITE BLOOD COUNT 15.29 K/uL (4.8-10.8)
[2016-11-13] MEDS: METHYLPREDNISOLONE IV 40 MG in SYRINGE 0 ML IV SCH ×2 (08:51→20:50)
--- NOTE | 2016-11-13 08:51 | Hospitalist Progress Note ---
Hospitalist Progress Note Date of Service Nov 13, 2016. (Itzel Guerra ., PA-C) Subjective Pt evaluation today including: conversation w/ patient, physical exam, chart review, lab review, review of studies, review of inpatient medication list Voiding: hamlin catheter in place (draining yellow urine ) Patient states she is feeling slightly better. Patient easily aroused to name. Able to appropriately answer questions. Patient denies CP or pain. +SOB. Limited ROS/HPI due to patient's status. (Itzel Guerra ., PA-C) Medications Current Inpatient Medications Medications (Trade) Dose Ordered Sig/Margot Route Start Time Stop Time Status Last Admin Dose Admin Heparin Sodium (Porcine) (Heparin Sq 5000 Unit/0.5ml) 5,000 unit Q12 SQ 11/12/16 21:00 12/12/16 20:59 11/12/16 21:59 5,000 UNIT Acetaminophen (Tylenol Tab) 650 mg Q4H PRN PO 11/12/16 11:45 12/12/16 11:44 Al Hydrox/Mg Hydrox/Simethicone (Maalox Max Susp) 15 ml Q4H PRN PO 11/12/16 11:45 12/12/16 11:44 Magnesium Hydroxide (Milk Of Magnesia Susp) 30 ml Q12H PRN PO 11/12/16 11:45 12/12/16 11:44 Ondansetron HCl (Zofran Inj) 4 mg Q6H PRN IV 11/12/16 11:45 12/12/16 11:44 Nitroglycerin (Nitrostat Tab) 0.4 mg UD PRN SL 11/12/16 11:45 12/12/16 11:44 Polyethylene 17 gm 17 gm DAILY PRN PO 11/12/16 13:30 12/12/16 13:29 Furosemide 40 mg/ Syringe 4 ml @ 4 mls/min BID@0600,1600 IV 11/12/16 16:00 12/12/16 15:59 11/13/16 06:16 4 MLS/MIN Levofloxacin/Prmx (Levaquin / D5W/ Premixed D5W) 150 ml @ 100 mls/hr Q48H IV 11/14/16 10:00 11/18/16 23:59 Aspirin (Ecotrin Tab) 81 mg DAILY PO 11/13/16 09:00 12/13/16 08:59 Cholecalciferol (Vitamin D Tab) 1,000 inter.unit DAILY PO 11/13/16 09:00 12/13/16 08:59 Magnesium Oxide (Mag-Ox Tab) 400 mg QAM PO 11/13/16 09:00 12/13/16 08:59 Senna/Docusate Sodium (Senokot S Tab) 1 tab DAILY PO 11/13/16 09:00 12/13/16 08:59 Hydralazine HCl (HydrALAZINE INJ) 10 mg Q6H PRN IV. 11/12/16 11:45 12/12/16 11:44 Albuterol/ Ipratropium (Duoneb) 3 ml QIDR INH 11/12/16 16:00 12/12/16 15:59 11/13/16 03:34 3 ML Metoprolol Tartrate (Lopressor Iv) 5 mg Q6 IV. 11/12/16 18:00 12/12/16 17:59 11/13/16 06:17 5 MG Morphine Sulfate 2 mg 2 mg Q4H PRN IV 11/12/16 12:45 11/26/16 12:44 Nitroglycerin/ Dextrose (Nitroglycerin/ D5w 100 Mcg/Ml) 250 ml @ 0 mls/hr Q0M PRN IV 11/12/16 12:45 12/12/16 12:44 Atorvastatin Calcium (Lipitor Tab) 40 mg QAM PO 11/13/16 09:00 12/13/16 08:59 Glucose (Glucose 40% Gel) 15-30 GRAMS 15 GRAMS... UD PRN PO 11/12/16 14:00 12/12/16 13:59 Glucose (Glucose Chew Tab) 4-8 Tablets 4 Tabl... UD PRN PO 11/12/16 14:00 12/12/16 13:59 Dextrose (Dextrose 50% 50ML Syringe) 25-50ML OF 50% DW IV FOR... UD PRN IV 11/12/16 14:00 12/12/16 13:59 Glucagon (Glucagon Inj) 1 mg UD PRN SQ 11/12/16 14:00 12/12/16 13:59 Piperacillin Sod/ Tazobactam Sod 1 ea 1 ea UD PRN N/A 11/12/16 14:00 12/12/16 13:59 Piperacillin Sod/ Tazobactam Sod/ Dextrose (Zosyn Iv/D5 100ml) 120 ml @ 30 mls/hr Q8H IV 11/12/16 16:00 11/19/16 15:59 11/13/16 07:31 30 MLS/HR Levofloxacin (Consult) 1 UD PRN N/A 11/12/16 14:45 12/12/16 14:44 Insulin Aspart SLIDING SCALE G... Q6H SC 11/12/16 18:00 12/12/16 17:59 11/13/16 06:22 4 UNITS Famotidine 10 mg/ Dextrose 101 ml @ 200 mls/hr Q12H IV 11/12/16 18:00 12/12/16 17:59 11/13/16 06:14 200 MLS/HR Phenytoin Sodium 40 mg/Syringe 0.8 ml @ 1 mls/min Q6H IV 11/12/16 18:00 12/12/16 17:59 11/13/16 06:15 1 MLS/MIN Sodium Chloride/ Syringe (Sodium Chloride 0.9% 10 ml Flush/ Syringe) 20 ml @ 0 mls/min Q6H IV 11/12/16 18:00 12/12/16 17:59 11/13/16 06:15 20 MLS/MIN Miscellaneous Information (Consult Glycemic Management Pharmacy) 1 [facility] PRN N/A 11/13/16 07:00 12/13/16 06:59 Insulin Detemir 20 unit 20 unit BID SC 11/13/16 09:00 12/13/16 08:59 Methylprednisolone Sodium Succinate/ Syringe (Solu-Medrol IV/ Syringe) 0.64 ml @ 1.5 mls/min Q12H IV 11/13/16 08:00 12/13/16 07:59 (Itzel Guerra, ANTELMO) Objective Vital Signs Date Time Temp Pulse Resp B/P Pulse Ox O2 Delivery O2 Flow Rate FiO2 11/13/16 08:00 36.7 74 26 124/61 98 BiPAP 50 11/13/16 08:00 BiPAP 50 11/13/16 06:17 78 123/78 11/13/16 05:59 78 28 128/73 96 BiPAP 50 11/13/16 04:00 95 BiPAP 50 11/13/16 03:59 36.9 80 28 119/54 93 BiPAP 50 11/13/16 03:35 75 28 95 BiPAP/CPAP 50 11/13/16 03:29 79 95 50 11/13/16 01:59 74 27 116/61 94 BiPAP 50 11/13/16 00:39 78 125/64 11/12/16 23:59 97 BiPAP 50 11/12/16 23:59 37.2 83 28 125/64 97 BiPAP 50 11/12/16 23:20 73 30 96 BiPAP/CPAP 50 11/12/16 23:19 73 96 50 11/12/16 21:59 72 29 100/64 97 BiPAP 50 11/12/16 20:00 97 BiPAP 50 11/12/16 19:59 37.1 70 26 110/72 96 BiPAP 50 11/12/16 19:42 71 96 50 11/12/16 19:41 71 29 96 BiPAP/CPAP 50 11/12/16 18:19 73 117/58 11/12/16 18:00 36.8 60 24 117/58 95 BiPAP 50 11/12/16 16:53 88 94 50 11/12/16 16:00 93 BiPAP 50 11/12/16 16:00 37.0 78 31 112/54 93 BiPAP 50 11/12/16 14:15 83 29 96 BiPAP 50 11/12/16 14:00 87 24 96 BiPAP 50 11/12/16 13:59 85 22 119/72 95 CPAP 50 11/12/16 13:45 85 32 97 BiPAP 50 11/12/16 13:43 85 19 106/64 94 BiPAP 50 11/12/16 13:32 37.2 85 37 104/64 94 BiPAP 50 11/12/16 13:30 85 33 94 11/12/16 13:25 87 95 50 11/12/16 13:20 88 30 90/60 95 Non-Rebreather 15.0 11/12/16 12:47 86 32 133/72 96 BiPAP 50 11/12/16 12:46 96 BiPAP 50 11/12/16 12:19 86 30 131/77 97 BiPAP 50 11/12/16 11:50 87 30 137/70 95 BiPAP 50 11/12/16 11:38 50 11/12/16 11:35 87 28 144/73 98 BiPAP 70 11/12/16 11:16 85 28 114/53 98 BiPAP 70 11/12/16 10:59 123/60 11/12/16 10:55 85 96 11/12/16 10:53 119/66 11/12/16 10:40 81 93 11/12/16 10:28 93 BiPAP 11/12/16 10:25 89 126/60 98 BiPAP 11/12/16 10:25 88 95 11/12/16 10:24 126/60 11/12/16 10:10 91 94 11/12/16 10:08 92 35 97 BiPAP/CPAP 70 11/12/16 10:08 92 97 70 11/12/16 10:06 114 11/12/16 10:01 117/91 11/12/16 09:54 38.3 93 126/60 100 BiPAP (Itzel Guerra, PA-C) Physical Exam General Appearance: no apparent distress, + obese Eyes: PERRL ENT: hearing grossly normal Neck: supple Respiratory/Chest: + decreased breath sounds (bilateral lung bases ), + wheezing (slight expiratory wheeze throughout ), + pertinent finding (BIPAP on ) Cardiovascular: regular rate, rhythm (distant heart sounds ) Abdomen: normal bowel sounds, non tender, soft Extremities: + pedal edema (+2 bilateral ), + pertinent finding (SCDs on ) Neurologic/Psychiatric: alert Skin: normal color, warm/dry, no rash (Itzel Guerra, PA-C) Laboratory Results Last 24 Hours Test 11/12/16 10:30 11/12/16 11:00 11/12/16 11:21 11/12/16 11:37 White Blood Count 18.59 K/uL Red Blood Count 3.51 M/uL Hemoglobin 12.3 g/dL Hematocrit 38.3 % Mean Corpuscular Volume 109.1 fL Mean Corpuscular Hemoglobin 35.0 pg Mean Corpuscular Hemoglobin Concent 32.1 g/dl Platelet Count 197 K/uL Mean Platelet Volume 10.5 fL Neutrophils (%) (Auto) 57.4 % Lymphocytes (%) (Auto) 25.4 % Monocytes (%) (Auto) 16.0 % Eosinophils (%) (Auto) 0.1 % Basophils (%) (Auto) 0.3 % Neutrophils # (Auto) 10.69 K/uL Lymphocytes # (Auto) 4.72 K/uL Monocytes # (Auto) 2.98 K/uL Eosinophils # (Auto) 0.01 K/uL Basophils # (Auto) 0.05 K/uL RDW Standard Deviation 54.1 fL RDW Coefficient of Variation 13.7 % Immature Granulocyte % (Auto) 0.8 % Immature Granulocyte # (Auto) 0.14 K/uL Nucleated RBC Absolute Count (auto) 0.07 K/uL Nucleated Red Blood Cells % 0.4 % Prothrombin Time 12.0 SECONDS Prothromb Time International Ratio 1.1 Activated Partial Thromboplast Time 26.5 SECONDS Partial Thromboplastin Ratio 1.0 Sodium Level 141 mmol/L Potassium Level 6.3 mmol/L Chloride Level 102 mmol/L Carbon Dioxide Level 30 mmol/L Anion Gap 9.0 mmol/L 17.0 mmol/L Blood Urea Nitrogen 49 mg/dl Creatinine 1.60 mg/dl Est Creatinine Clear Calc Drug Dose 29.7 ml/min Estimated GFR () 34.2 Estimated GFR (Non- 29.5 BUN/Creatinine Ratio 30.4 Random Glucose 156 mg/dl Calcium Level 9.1 mg/dl Total Bilirubin 1.3 mg/dl Aspartate Amino Transf (AST/SGOT) 47 U/L Alanine Aminotransferase (ALT/SGPT) 34 U/L Alkaline Phosphatase 121 U/L Creatine Kinase MB 4.0 ng/ml Troponin I 5.090 ng/ml Total Protein 7.6 gm/dl Albumin 2.6 gm/dl Globulin 5.0 gm/dl Albumin/Globulin Ratio 0.5 Procalcitonin 0.85 ng/mL Urine Color DK YELLOW Urine Appearance TURBID Urine pH 5.0 Urine Specific Magee 1.019 Urine Protein 2+ Urine Glucose (UA) NEG Urine Ketones TRACE Urine Occult Blood 3+ Urine Nitrite POS Urine Bilirubin 1+ Urine Urobilinogen NEG Urine Leukocyte Esterase TRACE Urine WBC (Auto) 5-10 /hpf Urine RBC (Auto) >30 /hpf Urine Hyaline Casts (Auto) /lpf Urine Epithelial Cells (Auto) >30 /lpf Urine Bacteria (Auto) NEG Urine Renal Epithelial Cells /lpf Urine Pathogenic Casts /lpf Urine Yeast (Auto) Bedside Hemoglobin 12.2 g/dl Bedside Hematocrit 36 % Bedside Sodium 140 mEq/L Bedside Potassium 6.1 mEq/L Bedside Chloride 101 mEq/L Bedside Total CO2 30 mEq/l Bedside Blood Urea Nitrogen 47 mg/dl Bedside Creatinine 1.4 mg/dl Bedside Glucose (other) 191 mg/dl Bedside Lactic Acid Venous 2.65 mmol/L Bedside Ionized Calcium (Christophe) 1.10 mmol/l Creatine Kinase MB Ratio Test 11/12/16 13:00 11/12/16 16:28 11/12/16 16:42 11/12/16 17:59 Potassium Level 5.5 mmol/L 5.3 mmol/L Phenytoin (Dilantin) Level 11.1 mcg/mL Blood Gas Sample Site L Brachial Bedside Blood Gas pH (LAB) 7.37 Bedside Blood Gas pCO2 (LAB) 54 mmHg Bedside Blood Gas pO2 (LAB) 76 mmHg Bedside Blood Gas HCO3 (LAB) 31 meq/L Bedside Blood Gas Total CO2 33 mEq/l Bedside Blood Gas Base Excess (LAB) 6.0 meq/L Bedside Blood Gas O2 Saturation 94.0 % Royal Test NA Oxygen Delivery Device BIPAP Bedside Oxygen Rate (breaths/min) 28 Bedside FiO2 50 % Blood Gas IPAP 14 Sodium Level 144 mmol/L Chloride Level 104 mmol/L Carbon Dioxide Level 27 mmol/L Anion Gap 13.0 mmol/L Blood Urea Nitrogen 53 mg/dl Creatinine 1.60 mg/dl Est Creatinine Clear Calc Drug Dose 29.7 ml/min Estimated GFR () 34.2 Estimated GFR (Non- 29.5 BUN/Creatinine Ratio 33.3 Random Glucose 235 mg/dl Lactic Acid Level 2.0 mmol/L Calcium Level 8.8 mg/dl Phosphorus Level 4.0 mg/dl Troponin I 5.960 ng/ml Bedside Glucose 273 mg/dl Test 11/12/16 20:16 11/12/16 22:02 11/13/16 00:34 11/13/16 05:04 Bedside Glucose 274 mg/dl 222 mg/dl Sodium Level 143 mmol/L 144 mmol/L Potassium Level 4.6 mmol/L 4.1 mmol/L Chloride Level 103 mmol/L 102 mmol/L Carbon Dioxide Level 32 mmol/L 34 mmol/L Anion Gap 8.0 mmol/L 8.0 mmol/L Blood Urea Nitrogen 58 mg/dl 59 mg/dl Creatinine 1.70 mg/dl 1.50 mg/dl Est Creatinine Clear Calc Drug Dose 27.9 ml/min 31.4 ml/min Estimated GFR () 31.8 37.0 Estimated GFR (Non- 27.4 31.9 BUN/Creatinine Ratio 34.2 39.0 Random Glucose 251 mg/dl 207 mg/dl Calcium Level 8.8 mg/dl 8.7 mg/dl Troponin I 6.290 ng/ml Phosphorus Level 3.9 mg/dl Total Bilirubin 0.8 mg/dl Aspartate Amino Transf (AST/SGOT) 25 U/L Alanine Aminotransferase (ALT/SGPT) 24 U/L Alkaline Phosphatase 84 U/L Total Protein 6.3 gm/dl Albumin 2.0 gm/dl Globulin 4.3 gm/dl Albumin/Globulin Ratio 0.5 Thyroid Stimulating Hormone (TSH) 1.510 uIu/ml Phenytoin (Dilantin) Level 10.8 mcg/mL Test 11/13/16 05:54 11/13/16 07:14 11/13/16 08:08 Bedside Glucose 254 mg/dl Blood Gas Sample Site L Radial Bedside Blood Gas pH (LAB) 7.42 Bedside Blood Gas pCO2 (LAB) 52 mmHg Bedside Blood Gas pO2 (LAB) 104 mmHg Bedside Blood Gas HCO3 (LAB) 34 meq/L Bedside Blood Gas Total CO2 36 mEq/l Bedside Blood Gas Base Excess (LAB) 10.0 meq/L Bedside Blood Gas O2 Saturation 98.0 % Royal Test Pass Oxygen Delivery Device BIPAP Bedside Oxygen Rate (breaths/min) 30 Bedside FiO2 50 % Blood Gas IPAP 17 White Blood Count 15.29 K/uL Red Blood Count 3.17 M/uL Hemoglobin 11.0 g/dL Hematocrit 34.2 % Mean Corpuscular Volume 107.9 fL Mean Corpuscular Hemoglobin 34.7 pg Mean Corpuscular Hemoglobin Concent 32.2 g/dl Platelet Count 159 K/uL Mean Platelet Volume 10.3 fL Neutrophils (%) (Auto) 57.6 % Lymphocytes (%) (Auto) 31.3 % Monocytes (%) (Auto) 10.3 % Eosinophils (%) (Auto) 0.1 % Basophils (%) (Auto) 0.1 % Neutrophils # (Auto) 8.81 K/uL Lymphocytes # (Auto) 4.78 K/uL Monocytes # (Auto) 1.58 K/uL Eosinophils # (Auto) 0.01 K/uL Basophils # (Auto) 0.02 K/uL RDW Standard Deviation 53.2 fL RDW Coefficient of Variation 13.6 % Immature Granulocyte % (Auto) 0.6 % Immature Granulocyte # (Auto) 0.09 K/uL (Itzel Guerra, ANTELMO) Assessment and Plan 81 y/o female, with PMHx of systolic CHF, b-cell lymphoma, ARF, dementia, CVA, HTN, DM, hyperlipidemia, and seizure disorder, who presented to the ED from [facility] because of acute respiratory failure. Acute respiratory failure/acute on chronic systolic CHF exacerbation: - Admit ICU - CXR- Congestive heart failure. -- Repeat CXR on 11/13- Mild improvement of the hemithoraces. Moderate residual perihilar and left basilar parenchymal prominence. - IV Lasix 40 mg BID - DuoNebs PRN - Hold Coreg 6.25 mg PO BID. Start Lopressor 5 mg q6hrs - Hamlin in place, monitor I&Os and daily weight - U/A dirty, pending urine culture - Pending blood cultures - Follow CMP and CBC Elevated troponin, likely secondary to demand ischemia: - Trend cardiac enzymes-- > peaked at 6.290, last recording on 11/13 at 5.190 - ECHO in 04/2016- EF of 30%. Recheck ECHO pending. - IV Nitro drip - IV Morphine ?Pneumonia, ?aspiration pneumonia: - IV Levaquin + IV Zosyn (started on 11/12) - IV Solu-Medrol 40 mg q12 hrs - MRSA swab- negative - NPO, pending speech evaluation when patient able DEJUAN on CKD, ?stage III: - Treat with IV Lasix - Follow BMP Hyperkalemia: - Given IV sodium bicarbonate + calcium gluconate in ED - Follow BMP T2DM: - Decrease Levemir 20 units BID - BSG ACHS with sliding insulin scale - Pharmacy consulted for glycemic management Seizure disorder: - Continue Phenytoin IV due to NPO - Checked Phenytoin level= 10.8 HTN: - Hold Cozaar 100 mg PO daily due to DEJUAN - Hydralazine 10 mg IV PRN q6hrs for SBP >170, DBP >100 and HR <70 + IV Lopressor 5 mg q6 hrs Hyperlipidemia: - Hold Zocor 20 mg PO daily. Start Atorvastatin 40 mg PO daily GI Prophylaxis: - IV Pepcid - Maalox PRN - IV Zofran PRN - Colace and/or Milk of Mag PRN DVT prophylaxis: - Heparin 5000 units SQ q12 hrs - CANDACE and SCDs Dispo: - Resident of [place] [facility] (Itzel Guerra, ANTELMO) i personally examined pt and verified all longoria points w John Guerra PAC feeling better, seems sl confused family does not seem surprised by this breathing better vitals noted, coarse exp wheeze c/w "cardiac wheeze" no distress HAP vs aspiration pneumonia w sepsis present on admission -improving acute on chronic mixed CHF -improving hypoxic respiratory failure -improving overall as above (Adrian Valdes D.O.)
[2016-11-13] MEDS: INSULIN DETEMIR FLEXPEN/FLEX TOUCH 100 UNITS/ML 3ML SC SCH ×2 (08:52→20:51)
[2016-11-13] MEDS: HEPARIN SOD 5000 UNIT/0.5 ML CARP SQ SCH ×2 (08:53→20:53)
[2016-11-13] MEDS: MAGNESIUM OXIDE 400 MG TAB PO SCH (09:00)
[2016-11-13] MEDS: DOCUSATE SODIUM/SENNA 50/8.6MG TAB PO SCH (09:00)
[2016-11-13] MEDS ORDERED: PHENYTOIN SODIUM ER 100 MG CAP PO SCH (09:00)
[2016-11-13] MEDS ORDERED: RANITIDINE HCL 150 MG TAB PO SCH (09:00)
[2016-11-13] MEDS ORDERED: ASPIRIN 81 MG ECTAB PO SCH (09:00)
[2016-11-13] MEDS: CHOLECALCIFEROL 1000 INTER.UNIT TAB PO SCH (09:00)
[2016-11-13] MEDS ORDERED: LOSARTAN POTASSIUM 50 MG TAB PO SCH (09:00)
[2016-11-13] MEDS ORDERED: ATORVASTATIN 40 MG TAB PO SCH (09:00)
--- NOTE | 2016-11-13 09:57 | Clinical Documentation Query ---
CLINICAL DOCUMENTATION QUERY 81-y/o female who presents in acute respiratory failure. In your clinical opinion is this patient being managed for: (x ) Sepsis POA in setting of pneumonia treated with IVF's and IV antibiotics. See notes ( ) Other explanation of clinical findings (Please Explain) ( ) Unable to determine (Please Define) ( ) Need to Discuss ( ) Not Agree The medical record reflects the following clinical findings, treatment, and risk factors. Clinical Indicators: Presents febrile 38.3, tachypneic 35, Leukocytotic 18.59, and with elevated serum lactate level 2.65. Treatment: IVF bolus, IV Zosyn, IV Levofloxacin, IV solumedrol. Risk Factors: Age, pneumonia, aspiration pneumonia, HCAP, Please clarify and document your clinical opinion in the progress notes and discharge summary. Terms such as "probable", "suspected", "likely", "questionable", "possible", or "still to be ruled out" are acceptable. IF IN AGREEMENT, YOU MUST DOCUMENT ABOVE DIAGNOSTIC STATEMENT IN DAILY PROGRESS NOTES AND DISCHARGE SUMMARY. This document is not part of the patient's record. Thank You, Sandeep García, RN [phone]
[2016-11-13] MEDS ORDERED: PIPERACILLIN/TAZOBACTAM 4.5 GM/100ML D5W IV SCH (10:30)
--- NOTE | 2016-11-13 10:45 | CRITICAL CARE PROGRESS NOTE ---
DATE: 11/13/2016 DATE: 11/13/2016. GENERAL INFORMATION: This is an 81-year-old woman admitted to the hospital yesterday from [facility] with complaints of shortness of breath. She was placed on BiPAP in the Emergency Department and her pressures have been increased to 18/7 and she is now at 50% FIO2. Attempts were made at diuresis yesterday with some Lasix. She remained on the BiPAP overnight last night and there were no acute events. Her care was discussed in detail on multidisciplinary rounds today. She had a bowel movement yesterday. PICC line placement was going to be reevaluated today by a different nurse. OBJECTIVE: VITAL SIGNS: Temperature 37.2, heart rate 70-80, respiratory rate 24-30, blood pressure 116-123/70s, oxygen saturation 96%. BiPAP settings 18/7 50%. 24-hour fluid balance negative 938 mL. GENERAL: She will open her eyes and tell me her name. She does not know where she is. She will follow commands and move all 4 extremities. LUNGS: Have inspiratory and expiratory wheezes throughout and very decreased breath sounds in the right base. I do not hear any rhonchi. HEART: Regular rate and rhythm, sounds are distant. No audible murmur. ABDOMEN: Morbidly obese, firm, nontender, mildly distended, active bowel sounds. EXTREMITIES: With 3-4+ pedal edema. SCDs are in place. Hands have 2+ edema. LABORATORY DATA: White blood cell count 5.29, hemoglobin 11, hematocrit 34.2, platelets 159. Sodium 144, potassium 4.1, chloride 102, CO2 34, BUN 59, creatinine 1.5, blood sugar 207, albumin 2.0. Troponin peak at 6.2, now down to 5.19, pH 7.42, pCO2 of 52, pO2 104, HCO3 34. Dilantin level 10.8. Urine culture and blood cultures are pending. IMAGING: Portable chest x-ray from this morning was reviewed as was its report. Some bilateral interstitial infiltrates remain largely unchanged compared to yesterday. MEDICATIONS AND INFUSIONS: Acetaminophen, Maalox, DuoNeb, aspirin, Lipitor, vitamin D, Pepcid, Lasix, subcutaneous heparin, hydralazine, insulin sliding scale, Levemir, Levaquin day 2, Milk of Magnesia, magnesium oxide, Solu-Medrol, Lopressor, morphine, nitroglycerin, Zofran, Dilantin, Zosyn day 2, MiraLax, senna. IMPRESSION: 1. Acute hypoxemic respiratory failure secondary to pulmonary edema and acute systolic heart failure. Echocardiogram is pending and her ejection fraction last year was 30-35%. 2. Possible aspiration pneumonia versus aspiration pneumonitis. 3. Acute kidney injury and hyperkalemia, improved. She is developing a metabolic alkalosis. 4. Metabolic encephalopathy, a bit better today. 5. Diabetes mellitus with hyperglycemia. 6. History of cerebrovascular accident and seizure disorder. 7. Non-ST segment elevation myocardial infarction, consider cardiology consult. I am not able to place her back on her carvedilol because I am concerned about aspiration with her altered mental status. 8. History of B-cell lymphoma. PLAN: 1. NEUROLOGIC: Avoid sedative medications. Hopefully, her encephalopathy will continue to improve and we can add back some of her oral outpatient medications, specifically carvedilol. 2. CARDIOVASCULAR: Resume aspirin and statin when she is able to take p.o. I will start some low dose IV Lopressor. Repeat EKG today. F/U Echo report. PICC line today. 3. PULMONARY: Continue intravenous antibiotics and increase steroids to 40 mg IV b.i.d. Continue bronchodilators as well as BiPAP. I would like to give her a trial off the BiPAP later this afternoon if her mental status improves. Consider chest percussion vest if she is able to tolerate breaks off of bipap. 4. ENDOCRINE: Glycemic consult has been placed. Her Levemir has been increased to 20 units b.i.d. 5. GASTROINTESTINAL: Maintain n.p.o. for now secondary to altered mental status. Continue H2 lewis for GI prophylaxis. She will need a swallowing evaluation prior to resuming po. 6. RENAL: Continue diuresis. Consider adding b.i.d. albumin prior to diuretics. Bumex 1mg given today after lasix 40mg. Follow electrolytes carefully and replete as needed. 7. HEMATOLOGY: White blood cell count is decreasing, continue to follow CBC. Continue deep venous thrombosis prophylaxis with subcutaneous heparin. 8. INFECTIOUS DISEASE: Await culture data. If she does not improve, consider adding vancomycin. Her procalcitonin was very low yesterday on admission and she is not coughing up any sputum. She is also not febrile. Thank you for asking me to see this patient. Please call me with any questions or concerns. Critical care time 40 minutes. NEEMA
--- NOTE | 2016-11-13 11:21 | ECHOCARDIOGRAM REPORT ---
*NOTICE TO RECEIVING [employer] This information is strictly Confidential and protected under [place] law. [place] law prohibits you from making any further disclosure of this information unless further disclosure is expressly permitted by the written consent of the person to whom it pertains or is authorized by law. A general authorization for the release of medical or other information is not sufficient for this purpose. Hospital accepts no responsibility if the information is made available to any other person, INCLUDING THE PATIENT. Interpretation Summary * Name: MODE DONALD Study Date: 11/12/2016 04:31 PM BP: 119/72 mmHg * Patient Location: .MSICU\S\E104\S\1 HR: 81 * : 1935 (M/d/yyy) Gender: Female Height: 59 in * Age: 81 yrs Ethnicity: [place] Weight: 246 lb * Ordering Physician: Itzel Guerra * Referring Physician: Sally Garcia * Performed By: Meghana Gillespie RCS * * Reason For Study: CHF * BSA: 2.0 m2 * Moderate left ventricular systolic dysfunction. * Left ventricular apical aneurysm. * Posterior, posterolateral, anterolateral, and anteroseptal hypokinesis. * Moderate concentric left ventricular hypertrophy. Left ventricular diastolic dysfunction. * Mild pulmonic, mitral, and tricuspid regurgitation. * Mildly elevated estimated right ventricular systolic pressure. * Compared to an echocardiogram of April 16, 2016 there has been no significant interval change. * -- Conclusions -- * Aortic valve sclerosis moderate, without significant aortic valvular stenosis. Procedure Details * A complete two-dimensional transthoracic echocardiogram was performed (2D, M-mode, Doppler and color flow Doppler). * A contrast injection of Definity was performed to improve assessment of LV function. * Contrast was injected into an intravenous site in the left arm. * One vial of Definity ultrasound contrast was diluted in normal saline to a total volume of 10 ml. A total of '2' ml of solution was administered during imaging. * Lot # [id number] of Definity utilized for procedure. * Expiration date OCT 21. * The attending nurse who injected the contrast agent was DARREN HICKS RN. Left Ventricle * The left ventricle is normal in size. * There is no thrombus. * There is moderate concentric left ventricular hypertrophy. * Left ventricular systolic function is moderately reduced. * Ejection Fraction = 35-40%. * A full diastolic examination was done with clinical findings of Class I diastolic dysfunction. * Posterior, posterolateral, and anteroseptal hypokinesis. Apical aneurysm. Anterolateral hypokinesis. Right Ventricle * The right ventricle is normal in size and function. Atria * The left atrial size is normal. * Right atrial size is normal. * No ASD detected; PFO is not assessed. Mitral Valve * The mitral valve is normal. * There is no mitral valve stenosis. * There is mild mitral regurgitation. Tricuspid Valve * The tricuspid valve is not well visualized, but is grossly normal. * There is no tricuspid stenosis. * Right ventricular systolic pressure is elevated at 40-50mmHg. * There is mild tricuspid regurgitation. Aortic Valve * The aortic valve is trileaflet. * The aortic valve opens well. * Aortic valve sclerosis moderate, without significant aortic valvular stenosis. * Aortic stenosis is absent. * No aortic regurgitation is present. Pulmonic Valve * The pulmonary valve is inadequately visualized, but the Doppler data is adequate for interpretation. * There is no pulmonic valvular stenosis. * Mild pulmonic valvular regurgitation. Great Vessels * The aortic root is normal size. Pericardium/Pleural * There is no pericardial effusion. Great Vessels * Normal inferior vena cava diameter and respiratory variation suggests normal central venous pressure. MMode 2D Measurements and Calculations IVSd 2.0 cm IVSs 2.7 cm LVIDd 4.5 cm LVIDs 3.6 cm LVPWd 1.5 cm LVPWs 1.8 cm IVS/LVPW 1.3 FS 18.9 % EDV(Teich) 91.2 ml ESV(Teich) 55.5 ml EF(Teich) 39.1 % EDV(cubed) 89.6 ml ESV(cubed) 47.8 ml EF(cubed) 46.6 % % IVS thick 39.0 % % LVPW thick 14.4 % LV mass(C)d 350.0 grams LV mass(C)dI 173.8 grams/m\S\2 LV mass(C)s 408.5 grams LV mass(C)sI 202.9 grams/m\S\2 SV(Teich) 35.7 ml SI(Teich) 17.7 ml/m\S\2 SV(cubed) 41.8 ml SI(cubed) 20.7 ml/m\S\2 Ao root diam 3.3 cm Ao root area 8.5 cm\S\2 ACS 1.8 cm LA dimension 3.5 cm LA/Ao 1.1 LVOT diam 2.2 cm LVOT area 3.7 cm\S\2 LVAd ap4 50.1 cm\S\2 LVLd ap4 10.0 cm EDV(MOD-sp4) 208.4 ml EDV(sp4-el) 214.0 ml LVAs ap4 34.8 cm\S\2 LVLs ap4 9.0 cm ESV(MOD-sp4) 108.7 ml ESV(sp4-el) 114.6 ml EF(MOD-sp4) 47.9 % EF(sp4-el) 46.4 % LVAd ap2 44.3 cm\S\2 LVLd ap2 10.1 cm EDV(MOD-sp2) 160.3 ml EDV(sp2-el) 164.6 ml LVAs ap2 34.3 cm\S\2 LVLs ap2 8.9 cm ESV(MOD-sp2) 107.8 ml ESV(sp2-el) 111.7 ml EF(MOD-sp2) 32.8 % EF(sp2-el) 32.1 % LVLd %diff 1.7 % EDV(MOD-bp) 181.0 ml LVLs %diff -0.19 % ESV(MOD-bp) 108.4 ml EF(MOD-bp) 40.1 % SV(MOD-sp4) 99.7 ml SI(MOD-sp4) 49.5 ml/m\S\2 SV(MOD-sp2) 52.5 ml SI(MOD-sp2) 26.1 ml/m\S\2 SV(MOD-bp) 72.6 ml SI(MOD-bp) 36.1 ml/m\S\2 SV(sp4-el) 99.4 ml SI(sp4-el) 49.3 ml/m\S\2 SV(sp2-el) 52.9 ml SI(sp2-el) 26.3 ml/m\S\2 Doppler Measurements and Calculations MV E max andrzej 85.4 cm/sec MV A max andrzej 135.0 cm/sec MV E/A 0.63 MV P1/2t max andrzej 87.1 cm/sec MV P1/2t 59.9 msec MVA(P1/2t) 3.7 cm\S\2 MV dec slope 425.7 cm/sec\S\2 MV dec time 0.25 sec Ao V2 max 108.3 cm/sec Ao max PG 4.7 mmHg Ao max PG (full) 2.3 mmHg BROWN(V,A) 2.7 cm\S\2 BROWN(V,D) 2.7 cm\S\2 LV V1 max PG 2.4 mmHg LV V1 max 77.3 cm/sec PA V2 max 97.7 cm/sec PA max PG 3.8 mmHg PI max andrzej 206.0 cm/sec PI max PG 17.0 mmHg PI dec slope 191.4 cm/sec\S\2 PI P1/2t 315.2 msec TR max andrzej 308.4 cm/sec
--- NOTE | 2016-11-13 11:24 | Pharmacy Progress Note ---
Glycemic Control Intl Consult Date of Service Nov 13, 2016. Scope Glycemic Pharmacist consulted by Dr Tinajero on 11/13/16 for glycemic control and to write orders per [facility] inpatient glycemic control protocol Objective Weight (Kilograms): 110.200 Accuchecks BSG (last 24hrs): Test 11/12/16 16:42 11/12/16 17:59 11/12/16 20:16 11/12/16 22:02 Random Glucose 235 mg/dl (70-99) 251 mg/dl (70-99) Bedside Glucose 273 mg/dl (70-90) 274 mg/dl (70-90) Test 11/13/16 00:34 11/13/16 05:04 11/13/16 05:54 Bedside Glucose 222 mg/dl (70-90) 254 mg/dl (70-90) Random Glucose 207 mg/dl (70-99) Laboratory Data (last 24hrs) Test 11/12/16 11:21 11/12/16 13:00 11/12/16 16:42 11/12/16 22:02 Anion Gap 17.0 mmol/L 13.0 mmol/L 8.0 mmol/L Potassium Level 5.5 mmol/L 5.3 mmol/L 4.6 mmol/L BUN/Creatinine Ratio 33.3 34.2 Blood Urea Nitrogen 53 mg/dl 58 mg/dl Creatinine 1.60 mg/dl 1.70 mg/dl Sodium Level 144 mmol/L 143 mmol/L Test 11/13/16 05:04 11/13/16 08:08 Anion Gap 8.0 mmol/L BUN/Creatinine Ratio 39.0 Blood Urea Nitrogen 59 mg/dl Creatinine 1.50 mg/dl Potassium Level 4.1 mmol/L Sodium Level 144 mmol/L White Blood Count 15.29 K/uL Red Blood Count 3.17 M/uL Hemoglobin 11.0 g/dL Hematocrit 34.2 % Mean Corpuscular Volume 107.9 fL Mean Corpuscular Hemoglobin 34.7 pg Mean Corpuscular Hemoglobin Concent 32.2 g/dl Platelet Count 159 K/uL Mean Platelet Volume 10.3 fL Neutrophils (%) (Auto) 57.6 % Lymphocytes (%) (Auto) 31.3 % Monocytes (%) (Auto) 10.3 % Eosinophils (%) (Auto) 0.1 % Basophils (%) (Auto) 0.1 % Neutrophils # (Auto) 8.81 K/uL Lymphocytes # (Auto) 4.78 K/uL Monocytes # (Auto) 1.58 K/uL Eosinophils # (Auto) 0.01 K/uL Basophils # (Auto) 0.02 K/uL HbA1c Item Value Date Time Hemoglobin A1c 6.1 % H 10/15/16 0545 Recent Pertinent Medications Outpatient Anti-diabetic Regimen: * Levemir 20 u BID * Novolog 30 u w/ breakfast + 45 u w/ lunch and dinner * Plus additional Novolog scale for high BSGs >350 mg/dL The patient is currently receiving: * Basal insulin: Lantus 10 units every 12 hours * Correctional Insulin: Novolog Correction per scale ACHS Goal Range: Low 140 mg/dL - High 180 mg/dL Correction Factor: 20 mg/dL/unit * Prandial insulin: Per carb ratio of 1 unit per 7 grams CHO consumed Risk Factors for Insulin Resistance: * Steroids: Solumedrol 125 mg IV X 1 in ED, continue on 40 mg IV every 12 hours * Infection: Levaquin + Zosyn IV * Diet: NPO- speech to evaluate Assessment & Plan ASSESSMENT: * 81 yo F admitted with acute respiratory failure, initiated on broad spectrum antibiotics and IV steroids * Due to NPO status, provider had given half dose of Levemir last night (unsure if morning Levemir was given SALES MGR) * Since patient was given reduced basal and IV steroids continued- patient is now hyperglycemic with BSGs consistently > 200 mg/dL * My plan will be to restart her home dose of Levemir this AM * Tighten Novolog and change checks while NPO to q4hrs until BSGs within goal range * ADA & AACE recommend a goal blood sugar range 140-180 mg/dl for the majority of critically ill & non-critically ill patients. However, more stringent targets may be selected in individual cases PLAN FOR INPATIENT GLYCEMIC CONTROL: * Basal insulin with Levemir 20 units SQ BID * Half dose if BSG <120 mg/dL * Correctional Insulin with NOVOLOG per scale Q4hrs while NPO (more frequent checks due to sustained hyperglycemia) * Goal Range: Low 140 mg/dL - High 180 mg/dL * Correction Factor: 15 mg/dL/unit * Nutritional / Prandial insulin per carb ratio of 1 unit per 6 grams CHO consumed * Most recent A1c added to D/C instructions * Please note that the plan above was derived based on current level of insulin resistance and hospital stress. These recommendations are appropriate for inpatient admission only. Plan of care upon discharge will need to be reassessed to avoid potential outpatient hypo/hyperglycemia. Thank you.
[2016-11-13] MEDS: ACETYLCYSTEINE 20% INHAL SOLN ***DISPENSED BY RESP. INH SCH (19:33)
[2016-11-14] VITALS (17 sets, daily range): BP systolic 122–160; BP diastolic 63–97; PULSE 67–86; TEMP 36.6–37.3; O2SAT 92–99
[2016-11-14] MEDS: INSULIN ASPART 100 UNITS/ML 3 ML PEN SC SCH ×7 (04:00→23:31)
[2016-11-14] MEDS: PHENYTOIN IV SCH ×5 (05:36→23:32)
[2016-11-14] MEDS: FUROSEMIDE INJ 40 MG in SYRINGE 0 ML IV SCH ×2 (05:36→16:32)
[2016-11-14] MEDS: FAMOTIDINE IV INJ 10 MG in DEXTROSE 5% 100ML 100 ML IV SCH (05:36)
[2016-11-14] MEDS: SODIUM CHLOR 0.9% 10ML FLUSH 20 ML in SYRINGE 0 ML IV SCH ×5 (05:37→23:32)
[2016-11-14] MEDS: METOPROLOL TARTRATE 1 MG/ML VIAL IV. SCH ×2 (05:39)
[2016-11-14 06:39] LABS: HEMATOCRIT 32.3 % (37-47); MEAN CORPUSCULAR HEMOGLOBIN 33.8 pg (25-34); MEAN CORPUSCULAR HGB CONC 31.3 g/dl (32-36); MEAN PLATELET VOLUME 9.8 fL (7.4-10.4); PLATELET COUNT 175 K/uL (130-400); RED BLOOD COUNT 2.99 M/uL (4.2-5.4); WHITE BLOOD COUNT 16.65 K/uL (4.8-10.8)
[2016-11-14 07:27] LABS: BUN/CREATININE RATIO 44.9 (10-20); CALCIUM 8.9 mg/dl (8.5-10.1); CREATININE 1.3 mg/dl (0.60-1.20); MAGNESIUM 2.3 mg/dl (1.8-2.4); PHOSPHORUS 3.3 mg/dl (2.5-4.9); POTASSIUM 3.2 mmol/L (3.5-5.1)
[2016-11-14] MEDS: ACETYLCYSTEINE 20% INHAL SOLN ***DISPENSED BY RESP. INH SCH ×3 (07:37→21:00)
[2016-11-14] MEDS: ALBUT/IPRATROP 3MG/0.5MG NEB 3 ML VIAL INH SCH ×4 (07:37→19:25)
[2016-11-14 07:40] LABS: BASO % 0.3 %; BASO ABS # 0.05 K/uL (0-0.2); COMPLETE YES; EOS % 0.2 %; IG% 1.5 %; LYMPH % 36.4 %; LYMPH ABS # 6.06 K/uL (1.2-3.4); MONO % 7.7 %; NEUT % 53.9 %
--- NOTE | 2016-11-14 07:58 | DIAGNOSTIC IMAGING REPORT ---
SINGLE VIEW CHEST CLINICAL HISTORY: Hypoxia. FINDINGS: 2 AP, portable, upright chest radiographs are compared to study dated 11/13/16. The examination is significantly degraded by portable technique, large body habitus, and patient rotation. A right PICC line is new from previous. The tip projects over the cavoatrial junction. The heart is enlarged and there is atherosclerotic calcification of the thoracic aorta. There is pulmonary vascular congestion and interstitial edema, similar to yesterday. There are small pleural effusions with dependent consolidation. No pneumothorax is seen. The skeletal structures are osteopenic. The bony thorax is grossly intact. IMPRESSION: 1. Cardiomegaly with evidence of congestive failure and interstitial edema. This is unchanged from yesterday. 2. Layering pleural effusions with bibasilar consolidation. 3. A right PICC line is new from previous. Electronically signed by: Von Marmolejo M.D. 11/14/2016 7:56 AM Dictated Date/Time: 11/14/2016 7:55 AM
[2016-11-14] MEDS: METHYLPREDNISOLONE IV 40 MG in SYRINGE 0 ML IV SCH (08:12)
[2016-11-14] MEDS: PIPERACILL/TAZOBAC IV 4.5 GM in DEXTROSE 5% 100ML IV SCH ×5 (08:12→23:33)
[2016-11-14] MEDS: INSULIN DETEMIR FLEXPEN/FLEX TOUCH 100 UNITS/ML 3ML SC SCH ×2 (08:13→20:27)
[2016-11-14] MEDS: HEPARIN SOD 5000 UNIT/0.5 ML CARP SQ SCH ×2 (08:15→20:26)
[2016-11-14] MEDS: SIMVASTATIN 20 MG TAB PO SCH (08:31)
[2016-11-14] MEDS: DOCUSATE SODIUM/SENNA 50/8.6MG TAB PO SCH (08:31)
[2016-11-14] MEDS: ASPIRIN 81 MG ECTAB PO SCH (08:31)
[2016-11-14] MEDS: CARVEDILOL 6.25 MG TAB PO SCH ×2 (08:31→20:23)
[2016-11-14] MEDS: MAGNESIUM OXIDE 400 MG TAB PO SCH (08:31)
[2016-11-14] MEDS: CHOLECALCIFEROL 1000 INTER.UNIT TAB PO SCH (08:32)
[2016-11-14] MEDS ORDERED: RACEPINEPHRINE 2.25% NEBU SOLN 0.5 ML VIAL INH STA (10:28)
[2016-11-14] MEDS: LEVOFLOXACIN / D5W 750 MG in PREMIXED IN D5W 150 ML IV SCH (10:31)
[2016-11-14] MEDS ORDERED: POTASSIUM CHLR 20 MEQ / WTR 20 MEQ in PREMIXED WATER 100 ML IV SCH (11:00)
[2016-11-14] MEDS ORDERED: METHYLPREDNISOLONE 20 MG in SYRINGE 0 ML IV ONE (11:00)
[2016-11-14] MEDS ORDERED: BOOST GLUCOSE CONTROL PO SCH (11:30)
[2016-11-14] MEDS: POTASSIUM CHLR 20 MEQ / WTR 20 MEQ in PREMIXED WATER 100 ML IV SCH ×3 (11:56→16:31)
[2016-11-14] MEDS ORDERED: ALBUMIN HUMAN 25% 12.5 GM/50 ML VIAL IV ONE (12:00)
--- NOTE | 2016-11-14 12:22 | CRITICAL CARE PROGRESS NOTE ---
DATE: 11/14/2016 GENERAL INFORMATION: This is ICU day #3. The patient is an 81-year-old woman admitted to the hospital from [facility] secondary to shortness of breath. She was placed on BiPAP 18/7 which was taken off yesterday afternoon. She did relatively well on 4-liter nasal cannula and wore BiPAP overnight last night, 18/7. FiO2 is now 40%. She has started to cough up some secretions but is having difficulty getting them out of her throat. When I saw her today, she had what appeared to be some audible stridor. She was not in any distress and this is a new finding. She denies shortness of breath as well as any pain. Her care was discussed in detail with her bedside nurse, Sally. She did not have a bowel movement yesterday. Additionally, yesterday she was evaluated by speech therapy and later in the afternoon started to have difficulty with thin liquids. Her family witnessed her coughing after drinking some water. She is now on nectar-thickened liquids. OBJECTIVE: VITAL SIGNS: Maximum temperature 37.3, heart rate 60-70, respiratory rate 18-34, blood pressure 125-134/60s to 70s, oxygen saturation 97%, BiPAP 18/7, 40%. 24-hour fluid balance -1.4 liters. O2 needs are 4 liters via nasal cannula. GENERAL: She is much more awake today and bright eyed. She greeted me when I came into the room. NEUROLOGIC: She is able to follow commands and move all 4 extremities weakly. LUNGS: Have decreased breath sounds throughout. I do not hear any expiratory wheezes. No rales or rhonchi. Sounds are decreased, particularly in the right base. HEART: Regular rate and rhythm. NECK: Audible stridor. ABDOMEN: Obese, soft, nondistended, nontender. Active bowel sounds. EXTREMITIES: Warm with 3+ pedal edema. SCDs are in place. LABORATORY DATA: White blood cell count 16.6, hemoglobin 10.1, hematocrit 32.3, platelets 175. Sodium 148, potassium 3.2, chloride 103, CO2 of 34, BUN 58, creatinine 1.3, magnesium 2.3, phosphorus 3.3, blood sugar 146. MICROBIOLOGY: Urine culture no growth, less than 100,000 colonies per mL from 11/12/2016. Blood cultures 11/12/2016 no growth. MEDICATIONS: Tylenol, Mucomyst, Maalox, DuoNeb, aspirin, Coreg, vitamin D, Lasix, heparin, hydralazine, sliding scale insulin, Levemir, Levaquin day 3, milk of magnesia, magnesium oxide, Solu-Medrol, morphine, nitroglycerin, Zofran, Dilantin, Zosyn day 3, potassium, Zantac, Senokot, Zocor. Portable chest x-ray from this morning shows cardiomegaly with pulmonary edema, unchanged from yesterday, as well as bilateral pleural effusions and bibasilar consolidation. Echocardiogram 11/13/2016 shows moderate left ventricular systolic dysfunction with ejection fraction 35-40%; left ventricular apical aneurysm; posterior, posterolateral, anterolateral and anteroseptal hypokinesis; moderate concentric left ventricular hypertrophy; mild pulmonic, mitral and tricuspid regurgitation; and mildly elevated estimated right ventricular systolic pressure. No significant change since 04/16/2016. IMPRESSION: 1. Acute hypoxemic respiratory failure secondary to pneumonia and acute decompensation of systolic heart failure. She was also wheezing yesterday and her steroids were increased. 2. Probable aspiration pneumonia. 3. Acute kidney injury, improving. 4. Metabolic encephalopathy, improved. 5. Diabetes mellitus with hyperglycemia, improved. 6. Sqm-MO-[id number] elevation myocardial infarction with no significant change in her echocardiogram. 7. History of cerebrovascular disease and seizure disorder. 8. Stridor. This is new. It may be related to secretions that are gathering in her posterior pharynx or upper airway. 9. History of hypertension. PLAN: 1. Neurologic: Continue to avoid sedatives. Treat pain with Tylenol if needed. Begin p.o. Dilantin tomorrow. 2. Pulmonary: Continue antibiotics, bronchodilators, and Mucomyst which was added yesterday. I have also added a flutter valve and she is getting chest percussion. I have increased her steroids to 60 mg IV q. 8 hours. Continue BiPAP at night and p.r.n. Consider humidification of the oxygen or an OxyMask to help with secretion clearance. Racemic epi ordered. 3. Cardiovascular: Now that she is able to take p.o., I have added back a small dose of Coreg and discontinued the Lopressor. I have restarted aspirin 81 mg daily as well as simvastatin and half of her Cozaar dose. 4. Infectious Disease: Sputum culture has been ordered. Continue Zosyn and Levaquin. Clinically, she seems to be improving without the addition of vancomycin, but I would have a low threshold to add that. Await further culture data. 5. Renal: She may be getting intravascularly dry. I will give her some 25% albumin today and continue Lasix b.i.d. Replete potassium. 6. GI: Continue diet and add dietary supplements, glucose controlled. Continue with a nectar-thickened liquid consistency and I am sure speech therapy will continue to reevaluate. 7. Miscellaneous: Continue DVT and GI prophylaxis. Physical therapy has been ordered. Out of bed today. MTDD
[2016-11-14] MEDS ORDERED: INSULIN DETEMIR FLEXPEN/FLEX TOUCH 100 UNITS/ML 3ML SC ONE (12:45)
--- NOTE | 2016-11-14 13:00 | Pharmacy Progress Note ---
Glycemic Control: Progress Nt Date of Service Nov 14, 2016. Scope Glycemic Pharmacist consulted by Dr Tinajero on 11/13/16 for glycemic control and to write orders per [facility] inpatient glycemic control protocol. Objective Accuchecks BSG (last 24hrs): Test 11/13/16 16:06 11/13/16 20:38 11/13/16 23:42 11/14/16 04:41 Bedside Glucose 221 mg/dl (70-90) 269 mg/dl (70-90) 200 mg/dl (70-90) 172 mg/dl (70-90) Test 11/14/16 06:25 11/14/16 07:40 11/14/16 11:47 Random Glucose 146 mg/dl (70-99) Bedside Glucose 160 mg/dl (70-90) 269 mg/dl (70-90) Laboratory Data (last 24hrs) Test 11/14/16 06:25 Anion Gap 11.0 mmol/L BUN/Creatinine Ratio 44.9 Blood Urea Nitrogen 58 mg/dl Creatinine 1.30 mg/dl Potassium Level 3.2 mmol/L Sodium Level 148 mmol/L White Blood Count 16.65 K/uL Red Blood Count 2.99 M/uL Hemoglobin 10.1 g/dL Hematocrit 32.3 % Mean Corpuscular Volume 108.0 fL Mean Corpuscular Hemoglobin 33.8 pg Mean Corpuscular Hemoglobin Concent 31.3 g/dl Platelet Count 175 K/uL Mean Platelet Volume 9.8 fL Neutrophils (%) (Auto) 53.9 % Lymphocytes (%) (Auto) 36.4 % Monocytes (%) (Auto) 7.7 % Eosinophils (%) (Auto) 0.2 % Basophils (%) (Auto) 0.3 % Neutrophils # (Auto) 8.98 K/uL Lymphocytes # (Auto) 6.06 K/uL Monocytes # (Auto) 1.28 K/uL Eosinophils # (Auto) 0.03 K/uL Basophils # (Auto) 0.05 K/uL HbA1c: 6.1% 10/15/16 Recent Pertinent Medications Outpatient Anti-diabetic Regimen: * Levemir 20 u BID * Novolog 30 u w/ breakfast + 45 u w/ lunch and dinner * Plus additional Novolog scale for high BSGs >350 mg/dL The patient is currently receiving: * Basal insulin: Levemir 20 units every 12 hours * Correctional Insulin: Novolog Correction per scale ACHS Goal Range: Low 140 mg/dL - High 180 mg/dL Correction Factor: 15 mg/dL/unit * Prandial insulin: Per carb ratio of 1 unit per 6 grams CHO consumed * Oral Agents: None currently Risk Factors for Insulin Resistance: * Steroids: Solu-Medrol 60mg IV Q 8 hours * Infection: receiving Zosyn + Levofloxacin * Diet: ordered T2DM / AHA diet. She did eat 30gm CHO w/ breakfast and 30gm CHO w/ lunch today. She will also be given Boost Pudding TID w/ meals (33gm CHO per serving) Assessment & Plan ASSESSMENT: 11/13/16 (from prior note): * 81 yo F admitted with acute respiratory failure, initiated on broad spectrum antibiotics and IV steroids * Due to NPO status, provider had given half dose of Levemir last night (unsure if morning Levemir was given LAMPS TESTER AND INSPECTOR) * Since patient was given reduced basal and IV steroids continued- patient is now hyperglycemic with BSGs consistently > 200 mg/dL * My plan will be to restart her home dose of Levemir this AM * Tighten Novolog and change checks while NPO to q4hrs until BSGs within goal range * ADA & AACE recommend a goal blood sugar range 140-180 mg/dl for the majority of critically ill & non-critically ill patients. However, more stringent targets may be selected in individual cases 11/14/16 * Glycemic control did improve with the adjustments made yesterday * She received a total of 63 units of insulin yesterday, all of which was basal and correctional insulin with the exception of 4 units carb coverage * Pre-lunch hyperglycemia observed today, however this was secondary to swallow eval just prior to BSG being checked * Steroid dose is being increased by institutional nutrition consultant. She receiving Solu-Medrol 40mg IV BID yesterday, however this dose is now increased to 60mg IV Q 8 hrs. When given this dose of steroids in the past she required in 100-110 units of insulin per day while tolerating a modest diet. * I suspect her insulin resistance will increase over the next 24 hours and her requirements for both basal and prandial insulin will rise. * Doses of insulin will be increased based upon prior admission data and current BSG trend PLAN FOR INPATIENT GLYCEMIC CONTROL: * Increasing Levemir to 25 units SQ BID; give additional 5 units SQ x 1 now. If BSG is less than 120 give only 1/2 dose (or 12 units) * Changing correction factor to 13 mg/dl/unit * Changing carb ratio to 1 unit per 5 grams CHO consumed * Changing goal range to Low 140 mg/dL - High 170 mg/dL * Continue Q 4 hrs BSG checks and Novolog coverage for next 24 hrs given substantial increase in IV steroid dose and high likelihood of declining glycemic control. Would not want to continue this frequency any longer than necessary to avoid sleep disruption and risk of delirium. * Please note that the plan above was derived based on current level of insulin resistance and hospital stress. These recommendations are appropriate for inpatient admission only. Plan of care upon discharge will need to be reassessed to avoid potential outpatient hypo/hyperglycemia. Thank you.
[2016-11-14] MEDS: METHYLPREDNISOLONE IV 60 MG in SYRINGE 0 ML IV SCH ×2 (16:31→23:31)
[2016-11-14] MEDS: BOOST VANILLA PUDDING CUP PO SCH (16:31)
--- NOTE | 2016-11-14 18:35 | Progress Note ---
Subjective Date of Service: Nov 14, 2016. Subjective Pt evaluation today including: conversation w/ patient, conversation w/ family , physical exam, chart review, lab review, review of studies, review of inpatient medication list feeling ok seems a little confused today breathing feels better updated family Problem List Medical Problems: (1) Aspiration into airway Status: Acute (2) Congestive heart failure Status: Acute (3) Congestive heart failure Status: Acute (4) Elevated troponin I level Status: Acute (5) Hyperkalemia Status: Acute (6) Pneumonia Status: Acute Review of Systems hpi and ros otherwise negative except for as above, as best can be ascertained Objective Vital Signs Date Time Temp Pulse Resp B/P Pulse Ox O2 Delivery O2 Flow Rate FiO2 11/14/16 18:00 77 30 160/75 94 Nasal Cannula 4.0 11/14/16 16:00 36.6 76 25 139/88 94 Nasal Cannula 4.0 11/14/16 16:00 Nasal Cannula 4.0 11/14/16 14:35 72 18 94 Mask 10.0 11/14/16 14:00 78 20 146/80 92 Humidified Oxygen 40 11/14/16 12:00 Humidified Oxygen 40 11/14/16 12:00 36.7 79 28 147/86 95 Humidified Oxygen 40 11/14/16 10:35 72 18 94 Nasal Cannula 4.0 11/14/16 10:00 76 22 136/74 93 Nasal Cannula 4.0 11/14/16 08:00 36.9 86 32 160/97 92 Nasal Cannula 4.0 86 11/14/16 08:00 Nasal Cannula 4.0 11/14/16 07:37 68 18 99 BiPAP/CPAP 50 11/14/16 06:00 73 27 142/70 97 67 11/14/16 05:39 74 138/69 11/14/16 04:00 BiPAP 50 11/14/16 04:00 37.0 73 26 134/70 96 BiPAP 50 74 11/14/16 02:00 77 25 137/65 98 11/14/16 00:01 37.3 77 29 122/66 96 BiPAP 50 86 11/14/16 00:00 78 122/66 11/13/16 23:59 BiPAP 50 11/13/16 23:20 70 95 50 11/13/16 22:00 104 36 136/78 96 Nasal Cannula 4.0 11/13/16 20:00 Nasal Cannula 4.0 11/13/16 20:00 37.0 96 34 125/63 94 Nasal Cannula 4.0 11/13/16 19:33 96 18 95 Nasal Cannula 4.5 Physical Exam General Appearance: no apparent distress Eyes: EOMI ENT: hearing grossly normal Neck: trachea midline Respiratory/Chest: no respiratory distress, no accessory muscle use, + rhonchi (exp wheeze/rhonchi but clearing from before) Abdomen: soft Neurologic/Psychiatric: hydroponics grower II-XII nml as tested, alert Skin: normal color, warm/dry Laboratory Results Last 24 Hours Test 11/13/16 20:38 11/13/16 23:42 11/14/16 04:41 11/14/16 06:25 Bedside Glucose 269 mg/dl 200 mg/dl 172 mg/dl White Blood Count 16.65 K/uL Red Blood Count 2.99 M/uL Hemoglobin 10.1 g/dL Hematocrit 32.3 % Mean Corpuscular Volume 108.0 fL Mean Corpuscular Hemoglobin 33.8 pg Mean Corpuscular Hemoglobin Concent 31.3 g/dl Platelet Count 175 K/uL Mean Platelet Volume 9.8 fL Neutrophils (%) (Auto) 53.9 % Lymphocytes (%) (Auto) 36.4 % Monocytes (%) (Auto) 7.7 % Eosinophils (%) (Auto) 0.2 % Basophils (%) (Auto) 0.3 % Neutrophils # (Auto) 8.98 K/uL Lymphocytes # (Auto) 6.06 K/uL Monocytes # (Auto) 1.28 K/uL Eosinophils # (Auto) 0.03 K/uL Basophils # (Auto) 0.05 K/uL RDW Standard Deviation 53.6 fL RDW Coefficient of Variation 13.7 % Immature Granulocyte % (Auto) 1.5 % Immature Granulocyte # (Auto) 0.25 K/uL Nucleated RBC Absolute Count (auto) 0.03 K/uL Nucleated Red Blood Cells % 0.2 % Sodium Level 148 mmol/L Potassium Level 3.2 mmol/L Chloride Level 103 mmol/L Carbon Dioxide Level 34 mmol/L Anion Gap 11.0 mmol/L Blood Urea Nitrogen 58 mg/dl Creatinine 1.30 mg/dl Est Creatinine Clear Calc Drug Dose 36.2 ml/min Estimated GFR () 43.9 Estimated GFR (Non- 37.9 BUN/Creatinine Ratio 44.9 Random Glucose 146 mg/dl Calcium Level 8.9 mg/dl Phosphorus Level 3.3 mg/dl Magnesium Level 2.3 mg/dl Test 11/14/16 07:40 11/14/16 11:47 11/14/16 16:05 Bedside Glucose 160 mg/dl 269 mg/dl 231 mg/dl Assessment and Plan 81 y/o female, with PMHx of systolic CHF, b-cell lymphoma, ARF, dementia, CVA, HTN, DM, hyperlipidemia, and seizure disorder, who presented to the ED from [facility] because of acute respiratory failure. Acute respiratory failure due to pneumonia w sepsis POA and CHF POA - doing better, treat underlying causes Elevated troponin, likely secondary to demand ischemia: - echo fortunately unchanged, troponins without further elevation HAP w vs aspiration pneumonia w sepsis present on admission - doing better, continue current treatment, speech eval acute on chronic mixed CHF -likely due to rate / stress from pneumonia -improving, continue diuresis DEJUAN on ?CKD, ?stage III: - due to CHF and pneumonia - improving slowly Hyperkalemia: - improving T2DM: - Pharmacy consulted for glycemic management Seizure disorder: - Continue Phenytoin - Checked Phenytoin level= 10.8 HTN: - Hold Cozaar 100 mg PO daily due to DEJUAN - Hydralazine 10 mg IV PRN q6hrs for SBP >170, DBP >100 and HR <70 + IV Lopressor 5 mg q6 hrs Hyperlipidemia: - Hold Zocor 20 mg PO daily. Start Atorvastatin 40 mg PO daily GI Prophylaxis: - IV Pepcid - Maalox PRN - IV Zofran PRN - Colace and/or Milk of Mag PRN DVT prophylaxis: - Heparin 5000 units SQ q12 hrs - CANDACE and SCDs Dispo: - Resident of [facility] improving
[2016-11-15] VITALS (19 sets, daily range): BP systolic 130–160; BP diastolic 61–94; PULSE 61–80; TEMP 36.6–36.9; O2SAT 94–100
[2016-11-15] MEDS: INSULIN ASPART 100 UNITS/ML 3 ML PEN SC SCH ×5 (04:38→21:09)
[2016-11-15 04:57] LABS: MEAN CELL VOLUME 108.8 fL (80-100); MEAN CORPUSCULAR HEMOGLOBIN 34.4 pg (25-34); MEAN CORPUSCULAR HGB CONC 31.6 g/dl (32-36); MEAN PLATELET VOLUME 9.5 fL (7.4-10.4); PLATELET COUNT 165 K/uL (130-400); RED BLOOD COUNT 2.94 M/uL (4.2-5.4); WHITE BLOOD COUNT 14.72 K/uL (4.8-10.8)
[2016-11-15 05:36] LABS: BASO % 0.4 %; BASO ABS # 0.06 K/uL (0-0.2); COMPLETE YES; EOS % 0.1 %; IG% 4.1 %; LYMPH % 37.8 %; LYMPH ABS # 5.56 K/uL (1.2-3.4); MONO % 5.6 %
[2016-11-15 05:39] LABS: CALCIUM 8.6 mg/dl (8.5-10.1); CREATININE 1.3 mg/dl (0.60-1.20); MAGNESIUM 2.3 mg/dl (1.8-2.4); PHOSPHORUS 2.7 mg/dl (2.5-4.9); POTASSIUM 4.1 mmol/L (3.5-5.1)
[2016-11-15] MEDS: FUROSEMIDE INJ 40 MG in SYRINGE 0 ML IV SCH (05:39)
[2016-11-15] MEDS: SODIUM CHLOR 0.9% 10ML FLUSH 20 ML in SYRINGE 0 ML IV SCH (05:39)
[2016-11-15] MEDS: ALBUT/IPRATROP 3MG/0.5MG NEB 3 ML VIAL INH SCH ×4 (07:04→19:50)
[2016-11-15] MEDS: ACETYLCYSTEINE 20% INHAL SOLN ***DISPENSED BY RESP. INH SCH ×3 (07:04→19:50)
[2016-11-15] MEDS: RANITIDINE HCL 150 MG TAB PO SCH (07:29)
[2016-11-15] MEDS: ASPIRIN 81 MG ECTAB PO SCH (07:29)
[2016-11-15] MEDS: MAGNESIUM OXIDE 400 MG TAB PO SCH (07:29)
[2016-11-15] MEDS: PHENYTOIN SODIUM ER 30 MG CAP PO SCH (07:29)
[2016-11-15] MEDS: DOCUSATE SODIUM/SENNA 50/8.6MG TAB PO SCH (07:29)
[2016-11-15] MEDS: CHOLECALCIFEROL 1000 INTER.UNIT TAB PO SCH (07:29)
[2016-11-15] MEDS: PIPERACILL/TAZOBAC IV 4.5 GM in DEXTROSE 5% 100ML IV SCH ×2 (07:30→15:08)
[2016-11-15] MEDS: CARVEDILOL 6.25 MG TAB PO SCH ×2 (07:30→21:03)
[2016-11-15] MEDS: SIMVASTATIN 20 MG TAB PO SCH (07:30)
[2016-11-15] MEDS: BOOST VANILLA PUDDING CUP PO SCH ×3 (07:30→16:36)
[2016-11-15] MEDS: METHYLPREDNISOLONE IV 60 MG in SYRINGE 0 ML IV SCH ×2 (07:30→15:09)
--- NOTE | 2016-11-15 07:31 | DIAGNOSTIC IMAGING REPORT ---
CHEST ONE VIEW PORTABLE CLINICAL HISTORY: Hypoxemia, sob, follow up edema COMPARISON STUDY: Chest radiograph November 14, 2016. FINDINGS: A right PICC remains in place. There is no pneumothorax. Interstitial thickening and bilateral opacities with retrocardiac opacity persist. There is a suspected small left pleural effusion. Cardiomegaly is unchanged. IMPRESSION: 1. Persistent interstitial thickening and bilateral opacities which may reflect pulmonary edema or pneumonia. Persistent retrocardiac opacity. Radiographic follow-up is recommended. 2. Suspected small left pleural effusion. Electronically signed by: Barrett Ferreira M.D. 11/15/2016 7:29 AM Dictated Date/Time: 11/15/2016 7:28 AM
[2016-11-15] MEDS: HEPARIN SOD 5000 UNIT/0.5 ML CARP SQ SCH ×3 (07:33→21:10)
[2016-11-15] MEDS: INSULIN DETEMIR FLEXPEN/FLEX TOUCH 100 UNITS/ML 3ML SC SCH ×2 (07:34→21:08)
[2016-11-15] MEDS ORDERED: LOSARTAN POTASSIUM 50 MG TAB PO SCH (09:00)
[2016-11-15] MEDS ORDERED: ALBUMIN HUMAN 25% 12.5 GM/50 ML VIAL IV ONE ×2 (10:15→15:00)
[2016-11-15] MEDS ORDERED: BISACODYL 10 MG SUPP PR PRN (11:00)
[2016-11-15] MEDS ORDERED: MAGNESIUM HYDROXIDE SUSP 30 ML UDC PO ONE (11:00)
[2016-11-15] MEDS ORDERED: MAGNESIUM HYDROXIDE SUSP 30 ML UDC PO PRN (11:00)
[2016-11-15] MEDS ORDERED: BISACODYL 10 MG SUPP PR ONE (11:15)
[2016-11-15] MEDS ORDERED: LOSARTAN POTASSIUM 50 MG TAB PO ONE (11:30)
--- NOTE | 2016-11-15 13:13 | CRITICAL CARE PROGRESS NOTE ---
DATE: 11/15/2016 GENERAL INFORMATION: There were no acute events overnight. This is an 81-year-old woman who was admitted to the intensive care unit from the Emergency Department 4 days ago for hypoxemia and borderline blood pressure. She is being treated for aspiration pneumonia and acute on chronic systolic heart failure. She was also encephalopathic when she was admitted to the intensive care unit and required BiPAP for 24 hours. She has been improving over the past several days, but has been tachypneic off and on. Last night she used her BiPAP 15/8 40%. She has had episodes where she has been confused and there may be a history of dementia, although not formally diagnosed. Per her nurse, her appetite is better today than yesterday and she has been out of bed to a chair both yesterday and today. She has not had a bowel movement since admission. She is tolerating her mechanical soft diet with nectar thickened liquids. She is still coughing and is having some difficulty getting her secretions up. PHYSICAL EXAMINATION: VITAL SIGNS: Maximum temperature 36.9, heart rate 60-70, respiratory rate 18-30, blood pressure 140-160/70s, oxygen saturation 97% on 4 liters nasal cannula. 24-hour fluid balance is negative 566 mL. GENERAL: This is an obese woman sitting in bed, awake and tachypneic, although not in respiratory distress. NEUROLOGIC: She is oriented to person but not to place. She is able to follow commands weakly. LUNGS: Very decreased breath sounds throughout. No rales or rhonchi. No expiratory wheezes. There are some upper airway sounds present. HEART: Distant regular rate and rhythm. ABDOMEN: Quite obese, soft, nontender, nondistended, active bowel sounds. EXTREMITIES: 2+ upper and lower extremity edema. LABORATORY DATA: White blood cell count 14.72, hemoglobin 10.1, hematocrit 32, platelets 165. Sodium 148, potassium 4.1, chloride 103, CO2 37, BUN 61, creatinine 1.3. Vitamin B12 937, blood sugar 178. Urine culture, gram-positive cocci 6000 CFU/mL. Portable chest x-ray from this morning was reviewed and shows persistent interstitial thickening and bibasilar opacities as well as persistent retrocardiac opacity and a small left pleural effusion. MEDICATIONS: Acetaminophen, Mucomyst, Maalox, DuoNeb q. 4 hours, aspirin, carvedilol, vitamin D, Boost Pudding, Lasix, subcutaneous heparin, hydralazine, insulin sliding scale, Levemir, Levaquin day 5, losartan, milk of magnesia, magnesium oxide, Solu-Medrol, nitroglycerin, Zofran, Dilantin, Zosyn day 5, MiraLax, Zantac, Senokot, simvastatin. IMPRESSION: 1. Acute hypoxemic respiratory failure secondary to a combination of aspiration pneumonia and pulmonary edema from decompensated heart failure. She is slowly improving but is still tachypneic, although not uncomfortable. She is having difficulty expectorating her secretions despite Mucomyst, chest percussion, q. 4 hour bronchodilators and the flutter valve. I think part of her problem is her body habitus as well as generalized weakness. 2. Non-ST segment elevation myocardial infarction, ejection fraction with regional wall motion abnormalities and ejection fraction essentially the same as last year in April. She is being managed medically for that. 3. Metabolic encephalopathy, improved. 4. Acute kidney injury, likely secondary to acute tubular necrosis, improving. She may be getting intravascularly volume depleted. She has been receiving intermittent doses of 12.5 grams of 25% albumin. 5. Diabetes mellitus, hyperglycemia is much improved. Many thanks to the pharmacy service. 6. History of cerebrovascular accident and seizure disorder, back on her enteral Dilantin today. 7. History of hypertension, now back on her full dose of Cozaar as of today. 8. Stridor versus upper airway secretions. This seems to come and go. She received racemic epinephrine yesterday with mild improvement. She had an arterial blood gas done yesterday. 9. Oropharyngeal dysphagia and on a modified diet with nectar thickened liquids. 10. Constipation. 11. Obesity. 12. Status post right upper extremity PICC line placement on 11/13. PLAN: Neurologic: I am discontinuing the morphine from her medication profile. She has not needed it. Tylenol for any pain. Pulmonary: Continue bronchodilators, flutter valve, chest percussion, Mucomyst, abx and intravenous steroids. I will back off on her Lasix today as well. Getting out of bed should help secretion clearance. Continue BiPAP at night. Cardiovascular: Carvedilol, aspirin, simvastatin were all added back yesterday. Cozaar increased to her home dose today. Renal: I have ordered 1 dose of albumin today and will give her another dose of 12.5 grams of 25% this afternoon. Decrease lasix dose. Gastrointestinal: Dulcolax suppository today. Aspiration precautions. Speech is evaluating re modified diet. ID: Continue Zosyn and Levaquin Day 5. Follow cultures. Endocrine: Insulin is being adjusted by the pharmacy service. Prophylaxis: Continue H2 lewis. Continue subcutaneous heparin and I will change it to q. 8 hours. Physical therapy is seeing her. I have updated her daughter regarding her care each day. She may be a candidate for transfer to the stepdown unit, although pulmonary toilet will need to be aggressive and ongoing. I will reevaluate that later today. Please call me with any questions or concerns. NEEMA
[2016-11-15] MEDS: FUROSEMIDE INJ 20 MG in SYRINGE 0 ML IV SCH (15:09)
--- NOTE | 2016-11-15 15:14 | Progress Note ---
Subjective Date of Service: Nov 15, 2016. Subjective Pt evaluation today including: conversation w/ patient, conversation w/ family , physical exam, chart review, lab review, review of studies, conversation w/ cosmetic sales consultant, review of inpatient medication list feels better breathing better no f/c/s d/w granddaughter Problem List Medical Problems: (1) Aspiration into airway Status: Acute (2) Congestive heart failure Status: Acute (3) Congestive heart failure Status: Acute (4) Elevated troponin I level Status: Acute (5) Hyperkalemia Status: Acute (6) Pneumonia Status: Acute Review of Systems ros otherwise negative except for as above Objective Vital Signs Date Time Temp Pulse Resp B/P Pulse Ox O2 Delivery O2 Flow Rate FiO2 11/15/16 14:46 74 18 100 Mask 10.0 40 11/15/16 14:00 74 22 138/71 97 Humidified Oxygen 40 11/15/16 12:00 36.6 75 24 131/62 95 Nasal Cannula 4.0 11/15/16 12:00 Nasal Cannula 4.0 11/15/16 11:20 74 18 97 Nasal Cannula 4.0 11/15/16 10:38 77 96 11/15/16 10:00 80 30 157/80 95 Nasal Cannula 4.0 79 11/15/16 08:00 36.9 77 25 158/94 97 Nasal Cannula 4.0 76 11/15/16 08:00 Nasal Cannula 4.0 11/15/16 07:04 78 18 98 Nasal Cannula 4.0 11/15/16 06:00 71 22 134/70 97 Nasal Cannula 4.0 70 11/15/16 04:00 Nasal Cannula 4.0 11/15/16 04:00 36.7 77 31 157/74 94 Nasal Cannula 4.0 69 11/15/16 02:00 72 30 160/78 96 Nasal Cannula 4.0 73 11/15/16 00:01 36.6 61 19 147/71 97 BiPAP 68 11/14/16 23:59 BiPAP 40 11/14/16 22:32 68 96 50 11/14/16 22:00 36.8 73 27 154/77 98 Nasal Cannula 67 11/14/16 20:00 Nasal Cannula 4.0 11/14/16 20:00 36.9 75 30 126/63 97 Nasal Cannula 4.0 76 2/11/17 19:25 74 18 96 Nasal Cannula 4.0 11/14/16 18:00 77 30 160/75 94 Nasal Cannula 4.0 11/14/16 16:00 36.6 76 25 139/88 94 Nasal Cannula 4.0 11/14/16 16:00 Nasal Cannula 4.0 Physical Exam General Appearance: no apparent distress Eyes: EOMI ENT: hearing grossly normal Neck: trachea midline Respiratory/Chest: no respiratory distress, no accessory muscle use, + rhonchi (high pitched expiratory rhonchi (more high pitched rhonchus than wheeze) b/l but less than before) Cardiovascular: regular rate, rhythm Extremities: normal range of motion Neurologic/Psychiatric: industrial engineering manager II-XII nml as tested, alert, normal mood/affect Skin: normal color, warm/dry Laboratory Results Last 24 Hours Test 11/14/16 16:05 11/14/16 20:07 11/14/16 23:25 11/15/16 04:34 Bedside Glucose 231 mg/dl 269 mg/dl 344 mg/dl 172 mg/dl Test 11/15/16 04:45 11/15/16 07:27 11/15/16 11:05 White Blood Count 14.72 K/uL Red Blood Count 2.94 M/uL Hemoglobin 10.1 g/dL Hematocrit 32.0 % Mean Corpuscular Volume 108.8 fL Mean Corpuscular Hemoglobin 34.4 pg Mean Corpuscular Hemoglobin Concent 31.6 g/dl Platelet Count 165 K/uL Mean Platelet Volume 9.5 fL Neutrophils (%) (Auto) 52.0 % Lymphocytes (%) (Auto) 37.8 % Monocytes (%) (Auto) 5.6 % Eosinophils (%) (Auto) 0.1 % Basophils (%) (Auto) 0.4 % Neutrophils # (Auto) 7.65 K/uL Lymphocytes # (Auto) 5.56 K/uL Monocytes # (Auto) 0.83 K/uL Eosinophils # (Auto) 0.01 K/uL Basophils # (Auto) 0.06 K/uL RDW Standard Deviation 53.1 fL RDW Coefficient of Variation 13.4 % Immature Granulocyte % (Auto) 4.1 % Immature Granulocyte # (Auto) 0.61 K/uL Sodium Level 148 mmol/L Potassium Level 4.1 mmol/L Chloride Level 103 mmol/L Carbon Dioxide Level 37 mmol/L Anion Gap 8.0 mmol/L Blood Urea Nitrogen 61 mg/dl Creatinine 1.30 mg/dl Est Creatinine Clear Calc Drug Dose 36.2 ml/min Estimated GFR () 43.9 Estimated GFR (Non- 37.9 BUN/Creatinine Ratio 47.0 Random Glucose 178 mg/dl Calcium Level 8.6 mg/dl Phosphorus Level 2.7 mg/dl Magnesium Level 2.3 mg/dl Vitamin B12 Level 937 pg/mL Bedside Glucose 140 mg/dl 218 mg/dl Assessment and Plan 81 y/o female, with PMHx of systolic CHF, b-cell lymphoma, ARF, dementia, CVA, HTN, DM, hyperlipidemia, and seizure disorder, who presented to the ED from [facility] because of acute respiratory failure. Acute respiratory failure due to pneumonia w sepsis POA and CHF POA - doing better, treat underlying causes Elevated troponin, likely secondary to severe demand ischemia: - echo fortunately unchanged, troponins without further elevation HAP w vs aspiration pneumonia w sepsis present on admission - doing better, continue current treatment, speech eval appreciated - continue modified diet acute on chronic mixed CHF -likely due to rate / stress from pneumonia -improving, continue diuresis DEJUAN on ?CKD, ?stage III: - due to CHF and pneumonia - improving slowly Hyperkalemia: - improving T2DM: - Pharmacy consulted for glycemic management Seizure disorder: - Continue Phenytoin - Checked Phenytoin level= 10.8 HTN: - Hold Cozaar 100 mg PO daily due to DEJUAN - Hydralazine 10 mg IV PRN q6hrs for SBP >170, DBP >100 and HR <70 + IV Lopressor 5 mg q6 hrs Hyperlipidemia: - Hold Zocor 20 mg PO daily. Start Atorvastatin 40 mg PO daily GI Prophylaxis: - IV Pepcid - Maalox PRN - IV Zofran PRN - Colace and/or Milk of Mag PRN DVT prophylaxis: - Heparin 5000 units SQ q12 hrs - CANDACE and SCDs Dispo: - Resident of [facility] improving, likely can move to telemetry by later today
--- NOTE | 2016-11-15 15:46 | Pharmacy Progress Note ---
Glycemic Control: Progress Nt Date of Service Nov 15, 2016. Scope Glycemic Pharmacist consulted by Dr Tinajero on 11/13/16 for glycemic control and to write orders per [facility] inpatient glycemic control protocol. Objective Accuchecks BSG (last 24hrs): Test 11/14/16 16:05 11/14/16 20:07 11/14/16 23:25 11/15/16 04:34 Bedside Glucose 231 mg/dl (70-90) 269 mg/dl (70-90) 344 mg/dl (70-90) 172 mg/dl (70-90) Test 11/15/16 04:45 11/15/16 07:27 11/15/16 11:05 Random Glucose 178 mg/dl (70-99) Bedside Glucose 140 mg/dl (70-90) 218 mg/dl (70-90) Laboratory Data (last 24hrs) Test 11/15/16 04:45 Anion Gap 8.0 mmol/L BUN/Creatinine Ratio 47.0 Blood Urea Nitrogen 61 mg/dl Creatinine 1.30 mg/dl Potassium Level 4.1 mmol/L Sodium Level 148 mmol/L White Blood Count 14.72 K/uL Red Blood Count 2.94 M/uL Hemoglobin 10.1 g/dL Hematocrit 32.0 % Mean Corpuscular Volume 108.8 fL Mean Corpuscular Hemoglobin 34.4 pg Mean Corpuscular Hemoglobin Concent 31.6 g/dl Platelet Count 165 K/uL Mean Platelet Volume 9.5 fL Neutrophils (%) (Auto) 52.0 % Lymphocytes (%) (Auto) 37.8 % Monocytes (%) (Auto) 5.6 % Eosinophils (%) (Auto) 0.1 % Basophils (%) (Auto) 0.4 % Neutrophils # (Auto) 7.65 K/uL Lymphocytes # (Auto) 5.56 K/uL Monocytes # (Auto) 0.83 K/uL Eosinophils # (Auto) 0.01 K/uL Basophils # (Auto) 0.06 K/uL HbA1c: 6.1% 10/15/16 Recent Pertinent Medications Outpatient Anti-diabetic Regimen: * Levemir 20 units BID * Novolog 30 units w/ breakfast + 45 u w/ lunch and dinner * Plus additional Novolog scale for high BSGs >350 mg/dL The patient is currently receiving: * Basal insulin: Levemir 25 units SQ BID; If BSG is less than 120 give only 1/2 dose (or 12 units) * Correctional Insulin: Novolog Correction per scale Q 4 hrs Goal Range: Low 140 mg/dL - High 170 mg/dL Correction Factor: 13 mg/dL/unit * Prandial insulin: Per carb ratio of 1 unit per 5 grams CHO consumed * Oral Agents: None currently Risk Factors for Insulin Resistance: * Steroids: Solu-Medrol 60mg IV Q 8 hours * Infection: receiving Zosyn + Levofloxacin for PNX * Diet: ordered T2DM / AHA diet as well as Boost Pudding (33gm CHO per serving) TID w/ meals Assessment & Plan ASSESSMENT: 11/13/16 (from prior note): * 81 yo F admitted with acute respiratory failure, initiated on broad spectrum antibiotics and IV steroids * Due to NPO status, provider had given half dose of Levemir last night (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 However, more stringent targets may be selected in individual cases 11/14/16 * Glycemic control did improve with the adjustments made yesterday * She received a total of 63 units of insulin yesterday, all of which was basal and correctional insulin with the exception of 4 units carb coverage * Pre-lunch hyperglycemia observed today, however this was secondary to swallow eval just prior to BSG being checked * Steroid dose is being increased by pediatric social worker. She receiving Solu-Medrol 40mg IV BID yesterday, however this dose is now increased to 60mg IV Q 8 hrs. When given this dose of steroids in the past she required in 100-110 units of insulin per day while tolerating a modest diet. * I suspect her insulin resistance will increase over the next 24 hours and her requirements for both basal and prandial insulin will rise. * Doses of insulin will be increased based upon prior admission data and current BSG trend 11/15/16 * She has received ~100 units of insulin over the last 24 hrs * Glycemic control did deteriorate initially after the dose of steroids was increased yesterday, however BSGs are now trending more favorably now that more basal insulin is on board. * Will continue the same basal and correctional insulin doses at this time given improved control * We can also reduce the BSG frequency to ACHS w/ a single overnight check to allow for less interrupted sleep - we can hopefully d/c the overnight check tomorrow if better controlled * Will add a little more prandial insulin as her BSG pre-lunch did climb more than desired, however I think she might have been shorted 2 units of Novolog w/ breakfast PLAN FOR INPATIENT GLYCEMIC CONTROL: * Continue Levemir 25 units SQ BID; If BSG is less than 120 give only 1/2 dose (or 12 units) * Continue correction factor of 13 mg/dl/unit * Changing carb ratio to 1 unit per 4.5 grams CHO consumed * Continue goal range of Low 140 mg/dL - High 170 mg/dL * Check BSG at 0200 tonight and cover w/ above Novolog correction * Reassess insulin doses with each step down in steroid dose * Please note that the plan above was derived based on current level of insulin resistance and hospital stress. These recommendations are appropriate for inpatient admission only. Plan of care upon discharge will need to be reassessed to avoid potential outpatient hypo/hyperglycemia. Thank you.
[2016-11-15] MEDS: PHENYTOIN SODIUM ER 100 MG CAP PO SCH (21:04)
[2016-11-16] VITALS (30 sets, daily range): BP systolic 120–172; BP diastolic 63–103; PULSE 59–83; TEMP 36.2–36.8; O2SAT 90–99
[2016-11-16] MEDS: PIPERACILL/TAZOBAC IV 4.5 GM in DEXTROSE 5% 100ML IV SCH ×3 (00:09→17:26)
[2016-11-16] MEDS: METHYLPREDNISOLONE IV 60 MG in SYRINGE 0 ML IV SCH ×2 (00:09→07:55)
[2016-11-16] MEDS: INSULIN ASPART 100 UNITS/ML 3 ML PEN SC SCH ×6 (02:43→21:25)
[2016-11-16 05:30] LABS: HEMATOCRIT 32.4 % (37-47); MEAN CELL VOLUME 109.8 fL (80-100); MEAN CORPUSCULAR HEMOGLOBIN 34.9 pg (25-34); MEAN CORPUSCULAR HGB CONC 31.8 g/dl (32-36); MEAN PLATELET VOLUME 9.9 fL (7.4-10.4); PLATELET COUNT 183 K/uL (130-400); RED BLOOD COUNT 2.95 M/uL (4.2-5.4); WHITE BLOOD COUNT 15.47 K/uL (4.8-10.8)
[2016-11-16 05:53] LABS: CREATININE 1.3 mg/dl (0.60-1.20)
[2016-11-16 05:54] LABS: BUN/CREATININE RATIO 46.3 (10-20); CALCIUM 8.4 mg/dl (8.5-10.1); MAGNESIUM 2.4 mg/dl (1.8-2.4); PHOSPHORUS 2.3 mg/dl (2.5-4.9)
[2016-11-16 06:00] LABS: BASO % 0.7 %; BASO ABS # 0.11 K/uL (0-0.2); COMPLETE YES; EOS % 0.1 %; IG% 4.2 %; LYMPH % 35.6 %; MONO % 7.6 %; NEUT % 51.8 %
[2016-11-16] MEDS: HEPARIN SOD 5000 UNIT/0.5 ML CARP SQ SCH ×3 (06:26→21:29)
[2016-11-16] MEDS: FUROSEMIDE INJ 20 MG in SYRINGE 0 ML IV SCH (06:26)
--- NOTE | 2016-11-16 07:10 | DIAGNOSTIC IMAGING REPORT ---
CHEST ONE VIEW PORTABLE CLINICAL HISTORY: pnea, cough, hypoxia dyspnea COMPARISON STUDY: 11/15/2016 FINDINGS: Slightly progressive parenchymal infiltrative change right upper lung with a slightly progressive consolidative change left base. Slight increase in prominence parenchymal markings right base. Central catheter in the right atrium. IMPRESSION: Slightly progressive bilateral parenchymal infiltrates versus pulmonary edema Electronically signed by: Michael Mock M.D. 11/16/2016 7:09 AM Dictated Date/Time: 11/16/2016 7:06 AM
[2016-11-16] MEDS: ACETYLCYSTEINE 20% INHAL SOLN ***DISPENSED BY RESP. INH SCH (07:16)
[2016-11-16] MEDS: ALBUT/IPRATROP 3MG/0.5MG NEB 3 ML VIAL INH SCH ×4 (07:16→20:00)
[2016-11-16] MEDS: DOCUSATE SODIUM/SENNA 50/8.6MG TAB PO SCH (07:49)
[2016-11-16] MEDS: PHENYTOIN SODIUM ER 30 MG CAP PO SCH (07:52)
[2016-11-16] MEDS: CHOLECALCIFEROL 1000 INTER.UNIT TAB PO SCH (07:52)
[2016-11-16] MEDS: RANITIDINE HCL 150 MG TAB PO SCH (07:54)
[2016-11-16] MEDS: SIMVASTATIN 20 MG TAB PO SCH (07:54)
[2016-11-16] MEDS: ASPIRIN 81 MG ECTAB PO SCH (07:54)
[2016-11-16] MEDS: CARVEDILOL 6.25 MG TAB PO SCH ×2 (07:54→21:15)
[2016-11-16] MEDS: MAGNESIUM OXIDE 400 MG TAB PO SCH (07:55)
[2016-11-16] MEDS: BOOST VANILLA PUDDING CUP PO SCH ×2 (08:11→11:30)
--- NOTE | 2016-11-16 08:13 | Critical Care Progress Note ---
Critical Care Progress Note Date of Service Nov 16, 2016. ICU Day ICU Day Number: [address] Shani Hankins This patient is an 81-year-old female who presented with shortness of breath from her long-term long-term facility. She has not required intubation to this point and uses BiPAP in the evenings. Upon my visit this morning she is on 4 L via nasal cannula s/p pulmonary percussion with no complaints. She did poor BiPAP around 2:33 AM and with coughing [place] O2 saturations dropping to low 80s; she refuses to have her BiPAP back on. Physical therapy was in to see this patient yesterday and recommended daily PT while inpatient. She continues to tolerate a mechanical soft diet with 3 bowel movements documented yesterday. She states that she is feeling slightly short of breath but not more than normal. While present in the room she is coughing regularly, it is a somewhat productive cough. She is swallowing the phlegm. She denies fever, chills, malaise. She denies chest pain/pressure. She denies nausea, abdominal pain. She denies weakness, numbness, tingling. Objective Vital Signs - as noted Laboratory Data - as noted Physical Exam: General - NAD, Eyes - PERRL, EOMI No icterus, gaze conjugate ENT - Mucosa dry, no lesions or candidiasis, nasal cannula in place Neck - Supple, trachea midline, no masses or lymphadenopathy, no JVD or bruits Lungs - No paradoxical chest wall movement, coarse to auscultation bilaterally, no wheezes, rales, or rhonchi Heart - Reg rate and rhythm, No murmur, rubs, clicks, or gallops appreciated Abdomen - BS present, no bruits noted, tympanic to percussion, soft, nontender, nondistended, no organomegaly Extremities - No edema, pedal pulses intact CN:PERRL, EOMI, no facial asymmetry, uvula/tongue midline Assessment & Plan (1) Hypernatremia (2) Acute respiratory failure (3) Congestive heart failure (4) Diabetes (5) Hypertension (6) Pneumonia Resp: Continue Respiratory regimen * Flutter valve * Duo-neb * Percussion * Bipap @ night Discontinue Mucomyst De-escalate Steroids: * Methylprednisolone 40mg q12hrs Continue current Abx course * Levofloxacin 750 Day 02/07 * Zosyn 4.5 Day 02/07 ID: Afebrile, WBC: 15.47 Procalcitonin: 1.19 D/C hamlin this afternoon; after diuresis Continue Abx for PNA as above Electrolytes: Na 150; lower through diuresis Diamox 500mg and Diuril 500mg IV once to potentiate hyponatremia Repeat PRP this afternoon Endo: Glucose 328-[address] Novolog SSI in place Continue Levemir Cardiology: NSR 73; SBP 135 Hypertension resolved Continue Carvedilol, Zocor, and ASA Avoid fluids due to Systolic HF; EF 35-40% : DEJUAN improving CR trending down, 1.3 from 1.7 (Baseline 1.0) -4.6L this admission Avoid nephrotoxic agents Monitor I&Os Repeat PRP this afternoon Monitor daily labs GI Mechanical Soft Diet in place and tolerating Continue Home medications * Zantac 150mg PO qDaily * Colace 1tab Po qDaily HEME: H&H Stable; plts 183 DVT Prophylaxis: SCDs and Heparin 5k Units q8hrs Neuro: History of cerebrovascular accident and seizure disorder Alert this morning Pain managed * Continue Dilantin IV Access: Right PICC CCT: 0 minutes; Level 3 inpatient billing; Not including any billable procedures. Thank you for including us in the care of this patient. Please review Dr. Mcleod's addendum for further recommendations. I have personally evaluated and examined this patient. I agree with assessment and plan of Earnest Roblero PA-C. Patient likely approaching dry weight, currently hypernatremic will give thiazide and Diamox for less chance of hypernatremia. EF 35-40, tolerating by mouth we will allow patient to adjust her free water balance. Discontinuing Hamlin after morning diuretic, recheck electrolytes this afternoon. Stable for downgraded from ICU to telemetry status. Data Medications: Current Inpatient Medications Medications (Trade) Dose Ordered Sig/Margot Route Start Time Stop Time Status Last Admin Dose Admin Acetaminophen (Tylenol Tab) 650 mg Q4H PRN PO 11/12/16 11:45 12/12/16 11:44 Al Hydrox/Mg Hydrox/Simethicone (Maalox Max Susp) 15 ml Q4H PRN PO 11/12/16 11:45 12/12/16 11:44 Magnesium Hydroxide (Milk Of Magnesia Susp) 30 ml Q12H PRN PO 11/12/16 11:45 12/12/16 11:44 Ondansetron HCl (Zofran Inj) 4 mg Q6H PRN IV 11/12/16 11:45 12/12/16 11:44 Nitroglycerin (Nitrostat Tab) 0.4 mg UD PRN SL 11/12/16 11:45 12/12/16 11:44 Polyethylene 17 gm 17 gm DAILY PRN PO 11/12/16 13:30 12/12/16 13:29 Levofloxacin/Prmx (Levaquin / D5W/ Premixed D5W) 150 ml @ 100 mls/hr Q48H IV 11/14/16 10:00 11/18/16 23:59 11/14/16 10:31 100 MLS/HR Cholecalciferol (Vitamin D Tab) 1,000 inter.unit DAILY PO 11/13/16 09:00 12/13/16 08:59 11/16/16 07:52 1,000 INTER.UNIT Magnesium Oxide (Mag-Ox Tab) 400 mg QAM PO 11/13/16 09:00 12/13/16 08:59 11/16/16 07:55 400 MG Senna/Docusate Sodium (Senokot S Tab) 1 tab DAILY PO 11/13/16 09:00 12/13/16 08:59 11/15/16 07:29 1 TAB Hydralazine HCl (HydrALAZINE INJ) 10 mg Q6H PRN IV. 11/12/16 11:45 12/12/16 11:44 Albuterol/ Ipratropium (Duoneb) 3 ml QIDR INH 11/12/16 16:00 12/12/16 15:59 11/16/16 07:16 3 ML Glucose (Glucose 40% Gel) 15-30 GRAMS 15 GRAMS... UD PRN PO 11/12/16 14:00 12/12/16 13:59 Glucose (Glucose Chew Tab) 4-8 Tablets 4 Tabl... UD PRN PO 11/12/16 14:00 12/12/16 13:59 Dextrose (Dextrose 50% 50ML Syringe) 25-50ML OF 50% DW IV FOR... UD PRN IV 11/12/16 14:00 12/12/16 13:59 Glucagon (Glucagon Inj) 1 mg UD PRN SQ 11/12/16 14:00 12/12/16 13:59 Piperacillin Sod/ Tazobactam Sod 1 ea 1 ea UD PRN N/A 11/12/16 14:00 12/12/16 13:59 Piperacillin Sod/ Tazobactam Sod/ Dextrose (Zosyn Iv/D5 100ml) 120 ml @ 30 mls/hr Q8H IV 11/12/16 16:00 11/19/16 15:59 11/16/16 00:09 30 MLS/HR Levofloxacin (Consult) 1 ea UD PRN N/A 11/12/16 14:45 12/12/16 14:44 Miscellaneous Information (Consult Glycemic Management Pharmacy) 1 ea UD PRN N/A 11/13/16 07:00 12/13/16 06:59 Aspirin (Ecotrin Tab) 81 mg QAM PO 11/14/16 09:00 12/14/16 08:59 11/16/16 07:54 81 MG Carvedilol (Coreg Tab) 6.25 mg BID PO 11/14/16 09:00 12/14/16 08:59 11/16/16 07:54 6.25 MG Simvastatin 20 mg 20 mg QAM PO 11/14/16 09:00 12/14/16 08:59 11/16/16 07:54 20 MG Methylprednisolone Sodium Succinate/ Syringe (Solu-Medrol IV/ Syringe) 0.96 ml @ 1.5 mls/min Q8H IV 11/14/16 16:00 12/14/16 15:59 11/16/16 07:55 1.5 MLS/MIN Ranitidine HCl (zANTac TAB) 150 mg QAM PO 11/15/16 09:00 12/15/16 08:59 11/16/16 07:54 150 MG Phenytoin Sodium (Dilantin Er Cap) 60 mg QAM PO 11/15/16 09:00 12/15/16 08:59 11/16/16 07:52 60 MG Phenytoin Sodium (Dilantin Er Cap) 100 mg QPM PO 11/15/16 21:00 12/15/16 20:59 11/15/16 21:04 100 MG Enteral Nutritional Formula (Boost Pudding) 1 cup TIDM PO 11/14/16 16:30 12/14/16 16:29 11/15/16 16:36 1 CUP Insulin Detemir (Levemir Flexpen/ FlexTouch) BID SC 11/14/16 21:00 12/14/16 20:59 11/15/16 21:08 25 UNIT Bisacodyl (Dulcolax Supp) 10 mg DAILY PRN OH 11/15/16 11:00 12/15/16 10:59 Losartan Potassium (coZAAR TAB) 100 mg QAM PO 11/16/16 09:00 12/16/16 08:59 11/16/16 07:52 100 MG Heparin Sodium (Porcine) 5000 unit 5,000 unit Q8@0600,1400,2200 SQ 11/15/16 15:00 12/15/16 14:59 11/16/16 06:26 5,000 UNIT Furosemide/Syringe (Lasix Inj/ Syringe) 2 ml @ 4 mls/min BID@0600,1600 IV 11/15/16 16:00 12/15/16 15:59 11/16/16 06:26 4 MLS/MIN Insulin Aspart (novoLOG ASPART) SLIDING SCALE G... ACHS SC 11/15/16 16:00 12/15/16 15:59 11/15/16 21:09 12 UNITS Insulin Aspart (novoLOG ASPART) SLIDING SCALE G... 0200 SC 11/16/16 02:00 12/16/16 01:59 11/16/16 02:43 2 UNITS I & O: 24-Hour Column 11/16/16 07:59 Intake Total 841 ml Output Total 2200 ml Balance -1359 ml Vital Signs: Date Time Temp Pulse Resp B/P Pulse Ox O2 Delivery O2 Flow Rate FiO2 11/16/16 07:16 76 18 99 Nasal Cannula 3.5 11/16/16 05:58 36.8 67 29 135/63 BiPAP 40 11/16/16 04:59 79 17 120/81 93 BiPAP 40 11/16/16 04:28 95 BiPAP 11/16/16 03:58 36.8 83 32 172/90 92 Nasal Cannula 4.0 11/16/16 02:58 77 33 162/77 94 Nasal Cannula 4.0 11/16/16 01:58 36.8 72 32 153/76 92 BiPAP 40 11/16/16 00:58 68 25 137/66 BiPAP 40 11/16/16 00:14 95 Nasal Cannula 4.0 11/15/16 23:58 36.8 64 20 145/65 95 BiPAP 40 11/15/16 22:16 74 95 50 11/15/16 22:00 26 143/74 94 Nasal Cannula 4.0 11/15/16 20:00 36.8 79 23 142/67 98 Nasal Cannula 4.0 11/15/16 20:00 95 Nasal Cannula 4.0 11/15/16 19:50 79 18 95 Nasal Cannula 3.5 11/15/16 18:00 80 30 139/88 95 Nasal Cannula 4.0 11/15/16 16:00 36.9 75 26 130/61 97 Nasal Cannula 4.0 11/15/16 16:00 Nasal Cannula 4.0 11/15/16 14:46 74 18 100 Mask 10.0 40 11/15/16 14:00 74 22 138/71 97 Humidified Oxygen 40 11/15/16 12:00 36.6 75 24 131/62 95 Nasal Cannula 4.0 11/15/16 12:00 Nasal Cannula 4.0 11/15/16 11:20 74 18 97 Nasal Cannula 4.0 11/15/16 10:38 77 96 11/15/16 10:00 80 30 157/80 95 Nasal Cannula 4.0 79 Laboratory Results: Last 24 Hours Test 11/15/16 11:05 11/15/16 16:17 11/15/16 20:35 11/16/16 02:40 Bedside Glucose 218 mg/dl 328 mg/dl 276 mg/dl 187 mg/dl Test 11/16/16 05:13 11/16/16 07:24 White Blood Count 15.47 K/uL Red Blood Count 2.95 M/uL Hemoglobin 10.3 g/dL Hematocrit 32.4 % Mean Corpuscular Volume 109.8 fL Mean Corpuscular Hemoglobin 34.9 pg Mean Corpuscular Hemoglobin Concent 31.8 g/dl Platelet Count 183 K/uL Mean Platelet Volume 9.9 fL Neutrophils (%) (Auto) 51.8 % Lymphocytes (%) (Auto) 35.6 % Monocytes (%) (Auto) 7.6 % Eosinophils (%) (Auto) 0.1 % Basophils (%) (Auto) 0.7 % Neutrophils # (Auto) 8.02 K/uL Lymphocytes # (Auto) 5.50 K/uL Monocytes # (Auto) 1.17 K/uL Eosinophils # (Auto) 0.02 K/uL Basophils # (Auto) 0.11 K/uL RDW Standard Deviation 54.2 fL RDW Coefficient of Variation 13.6 % Immature Granulocyte % (Auto) 4.2 % Immature Granulocyte # (Auto) 0.65 K/uL Nucleated RBC Absolute Count (auto) 0.04 K/uL Nucleated Red Blood Cells % 0.2 % Macrocytosis PRESENT Sodium Level 150 mmol/L Potassium Level 4.0 mmol/L Chloride Level 104 mmol/L Carbon Dioxide Level 39 mmol/L Anion Gap 7.0 mmol/L Blood Urea Nitrogen 60 mg/dl Creatinine 1.30 mg/dl Est Creatinine Clear Calc Drug Dose 35.2 ml/min Estimated GFR () 43.9 Estimated GFR (Non- 37.9 BUN/Creatinine Ratio 46.3 Random Glucose 171 mg/dl Calcium Level 8.4 mg/dl Phosphorus Level 2.3 mg/dl Magnesium Level 2.4 mg/dl Bedside Glucose 178 mg/dl
[2016-11-16] MEDS: INSULIN DETEMIR FLEXPEN/FLEX TOUCH 100 UNITS/ML 3ML SC SCH ×2 (08:14→21:27)
[2016-11-16] MEDS ORDERED: LOSARTAN POTASSIUM 50 MG TAB PO SCH (09:00)
[2016-11-16] MEDS ORDERED: ACETAZOLAMIDE IV PUSH 500 MG in SYRINGE 0 ML IV ONE (09:15)
[2016-11-16] MEDS ORDERED: CHLOROTHIAZIDE INJ 500 MG in DEXTROSE 5% 50ML 50 ML IV ONE (09:30)
--- NOTE | 2016-11-16 09:32 | Progress Note ---
Subjective Date of Service: Nov 16, 2016. Subjective Pt evaluation today including: conversation w/ patient, conversation w/ family , physical exam, chart review, lab review Problem List Medical Problems: (1) Aspiration into airway Status: Acute (2) Congestive heart failure Status: Acute (3) Congestive heart failure Status: Acute (4) Elevated troponin I level Status: Acute (5) Hyperkalemia Status: Acute (6) Pneumonia Status: Acute Review of Systems ROS was obtained in details due to her medical acuity she has no pain at this moment Medications Current Inpatient Medications Medications (Trade) Dose Ordered Sig/Margot Route Start Time Stop Time Status Last Admin Dose Admin Acetaminophen (Tylenol Tab) 650 mg Q4H PRN PO 11/12/16 11:45 12/12/16 11:44 Al Hydrox/Mg Hydrox/Simethicone (Maalox Max Susp) 15 ml Q4H PRN PO 11/12/16 11:45 12/12/16 11:44 Magnesium Hydroxide (Milk Of Magnesia Susp) 30 ml Q12H PRN PO 11/12/16 11:45 12/12/16 11:44 Ondansetron HCl (Zofran Inj) 4 mg Q6H PRN IV 11/12/16 11:45 12/12/16 11:44 Nitroglycerin (Nitrostat Tab) 0.4 mg UD PRN SL 11/12/16 11:45 12/12/16 11:44 Polyethylene 17 gm 17 gm DAILY PRN PO 11/12/16 13:30 12/12/16 13:29 Levofloxacin/Prmx (Levaquin / D5W/ Premixed D5W) 150 ml @ 100 mls/hr Q48H IV 11/14/16 10:00 11/18/16 23:59 11/14/16 10:31 100 MLS/HR Magnesium Oxide (Mag-Ox Tab) 400 mg QAM PO 11/13/16 09:00 12/13/16 08:59 11/16/16 07:55 400 MG Senna/Docusate Sodium (Senokot S Tab) 1 tab DAILY PO 11/13/16 09:00 12/13/16 08:59 11/15/16 07:29 1 TAB Hydralazine HCl (HydrALAZINE INJ) 10 mg Q6H PRN IV. 11/12/16 11:45 12/12/16 11:44 Albuterol/ Ipratropium (Duoneb) 3 ml QIDR INH 11/12/16 16:00 12/12/16 15:59 11/16/16 07:16 3 ML Glucose (Glucose 40% Gel) 15-30 GRAMS 15 GRAMS... UD PRN PO 11/12/16 14:00 12/12/16 13:59 Glucose (Glucose Chew Tab) 4-8 Tablets 4 Tabl... UD PRN PO 11/12/16 14:00 12/12/16 13:59 Dextrose (Dextrose 50% 50ML Syringe) 25-50ML OF 50% DW IV FOR... UD PRN IV 11/12/16 14:00 12/12/16 13:59 Glucagon (Glucagon Inj) 1 mg UD PRN SQ 11/12/16 14:00 12/12/16 13:59 Piperacillin Sod/ Tazobactam Sod 1 ea 1 ea UD PRN N/A 11/12/16 14:00 12/12/16 13:59 Piperacillin Sod/ Tazobactam Sod/ Dextrose (Zosyn Iv/D5 100ml) 120 ml @ 30 mls/hr Q8H IV 11/12/16 16:00 11/19/16 15:59 11/16/16 08:11 30 MLS/HR Levofloxacin (Consult) 1 ea UD PRN N/A 11/12/16 14:45 12/12/16 14:44 Miscellaneous Information (Consult Glycemic Management Pharmacy) 1 ea UD PRN N/A 11/13/16 07:00 12/13/16 06:59 Aspirin (Ecotrin Tab) 81 mg QAM PO 11/14/16 09:00 12/14/16 08:59 11/16/16 07:54 81 MG Carvedilol (Coreg Tab) 6.25 mg BID PO 11/14/16 09:00 12/14/16 08:59 11/16/16 07:54 6.25 MG Simvastatin (Zocor Tab) 20 mg QAM PO 11/14/16 09:00 12/14/16 08:59 11/16/16 07:54 20 MG Ranitidine HCl (zANTac TAB) 150 mg QAM PO 11/15/16 09:00 12/15/16 08:59 11/16/16 07:54 150 MG Phenytoin Sodium (Dilantin Er Cap) 60 mg QAM PO 11/15/16 09:00 12/15/16 08:59 11/16/16 07:52 60 MG Phenytoin Sodium (Dilantin Er Cap) 100 mg QPM PO 11/15/16 21:00 12/15/16 20:59 11/15/16 21:04 100 MG Enteral Nutritional Formula (Boost Pudding) 1 cup TIDM PO 11/14/16 16:30 12/14/16 16:29 11/16/16 08:11 1 CUP Insulin Detemir (Levemir Flexpen/ FlexTouch) BID SC 11/14/16 21:00 12/14/16 20:59 11/16/16 08:14 25 UNIT Bisacodyl (Dulcolax Supp) 10 mg DAILY PRN VT 11/15/16 11:00 12/15/16 10:59 Heparin Sodium (Porcine) (Heparin Sq 5000 Unit/0.5ml) 5,000 unit Q8@0600,1400,2200 SQ 11/15/16 15:00 12/15/16 14:59 11/16/16 06:26 5,000 UNIT Insulin Aspart (novoLOG ASPART) SLIDING SCALE G... ACHS SC 11/15/16 16:00 12/15/16 15:59 11/16/16 08:13 17 UNITS Insulin Aspart SLIDING SCALE G... 0200 SC 11/16/16 02:00 12/16/16 01:59 11/16/16 02:43 2 UNITS Methylprednisolone Sodium Succinate 40 mg/Syringe 0.64 ml @ 1.5 mls/min Q12H IV 11/16/16 20:00 12/16/16 19:59 Furosemide/ Dextrose (Lasix Inj/D5 100ml) 100 ml @ 3 mls/hr Q24H IV 11/16/16 09:15 12/16/16 09:14 UNV Lactobacillus Acidophilus (Lactinex Granules Pack) 1 gm TIDM PO 11/16/16 11:30 12/16/16 11:29 UNV Objective Vital Signs Date Time Temp Pulse Resp B/P Pulse Ox O2 Delivery O2 Flow Rate FiO2 11/16/16 07:30 36.2 67 22 140/65 96 Nasal Cannula 4.0 11/16/16 07:30 Nasal Cannula 4.0 11/16/16 07:16 76 18 99 Nasal Cannula 3.5 11/16/16 05:58 36.8 67 29 135/63 BiPAP 40 11/16/16 04:59 79 17 120/81 93 BiPAP 40 11/16/16 04:28 95 BiPAP 11/16/16 03:58 36.8 83 32 172/90 92 Nasal Cannula 4.0 11/16/16 02:58 77 33 162/77 94 Nasal Cannula 4.0 11/16/16 01:58 36.8 72 32 153/76 92 BiPAP 40 11/16/16 00:58 68 25 137/66 BiPAP 40 11/16/16 00:14 95 Nasal Cannula 4.0 11/15/16 23:58 36.8 64 20 145/65 95 BiPAP 40 11/15/16 22:16 74 95 50 11/15/16 22:00 26 143/74 94 Nasal Cannula 4.0 11/15/16 20:00 36.8 79 23 142/67 98 Nasal Cannula 4.0 11/15/16 20:00 95 Nasal Cannula 4.0 11/15/16 19:50 79 18 95 Nasal Cannula 3.5 11/15/16 18:00 80 30 139/88 95 Nasal Cannula 4.0 11/15/16 16:00 36.9 75 26 130/61 97 Nasal Cannula 4.0 11/15/16 16:00 Nasal Cannula 4.0 11/15/16 14:46 74 18 100 Mask 10.0 40 11/15/16 14:00 74 22 138/71 97 Humidified Oxygen 40 11/15/16 12:00 36.6 75 24 131/62 95 Nasal Cannula 4.0 11/15/16 12:00 Nasal Cannula 4.0 11/15/16 11:20 74 18 97 Nasal Cannula 4.0 11/15/16 10:38 77 96 11/15/16 10:00 80 30 157/80 95 Nasal Cannula 4.0 79 Physical Exam General Appearance: + mild distress Eyes: normal inspection, EOMI ENT: hearing grossly normal Neck: supple Respiratory/Chest: + respiratory distress, + decreased breath sounds, + crackles, + rales Cardiovascular: regular rate, rhythm, no edema, no gallop Abdomen: non tender, soft, no organomegaly, no pulsatile mass Extremities: normal range of motion, non-tender, no pedal edema, no calf tenderness Neurologic/Psychiatric: teletype mechanic II-XII nml as tested, no motor/sensory deficits, alert, normal mood/affect Skin: normal color, warm/dry, no rash Laboratory Results Last 24 Hours Test 11/15/16 11:05 11/15/16 16:17 11/15/16 20:35 11/16/16 02:40 Bedside Glucose 218 mg/dl 328 mg/dl 276 mg/dl 187 mg/dl Test 11/16/16 05:13 11/16/16 07:24 11/16/16 09:03 White Blood Count 15.47 K/uL Red Blood Count 2.95 M/uL Hemoglobin 10.3 g/dL Hematocrit 32.4 % Mean Corpuscular Volume 109.8 fL Mean Corpuscular Hemoglobin 34.9 pg Mean Corpuscular Hemoglobin Concent 31.8 g/dl Platelet Count 183 K/uL Mean Platelet Volume 9.9 fL Neutrophils (%) (Auto) 51.8 % Lymphocytes (%) (Auto) 35.6 % Monocytes (%) (Auto) 7.6 % Eosinophils (%) (Auto) 0.1 % Basophils (%) (Auto) 0.7 % Neutrophils # (Auto) 8.02 K/uL Lymphocytes # (Auto) 5.50 K/uL Monocytes # (Auto) 1.17 K/uL Eosinophils # (Auto) 0.02 K/uL Basophils # (Auto) 0.11 K/uL RDW Standard Deviation 54.2 fL RDW Coefficient of Variation 13.6 % Immature Granulocyte % (Auto) 4.2 % Immature Granulocyte # (Auto) 0.65 K/uL Nucleated RBC Absolute Count (auto) 0.04 K/uL Nucleated Red Blood Cells % 0.2 % Macrocytosis PRESENT Sodium Level 150 mmol/L Potassium Level 4.0 mmol/L Chloride Level 104 mmol/L Carbon Dioxide Level 39 mmol/L Anion Gap 7.0 mmol/L Blood Urea Nitrogen 60 mg/dl Creatinine 1.30 mg/dl Est Creatinine Clear Calc Drug Dose 35.2 ml/min Estimated GFR () 43.9 Estimated GFR (Non- 37.9 BUN/Creatinine Ratio 46.3 Random Glucose 171 mg/dl Calcium Level 8.4 mg/dl Phosphorus Level 2.3 mg/dl Magnesium Level 2.4 mg/dl Bedside Glucose 178 mg/dl Assessment and Plan 81 y/o female, with PMHx of systolic CHF, b-cell lymphoma,dementia, CVA, HTN, DM , hyperlipidemia, and seizure disorder, who presented to the ED from [facility] because of acute respiratory failure. 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 Start Atorvastatin 40 mg PO daily GI Prophylaxis: - IV Pepcid - Maalox PRN - IV Zofran PRN - Colace and/or Milk of Mag PRN DVT prophylaxis: - Heparin 5000 units SQ q12 hrs - CANDACE and SCDs Dispo: - Resident of [facility] improving, likely can move to telemetry today
[2016-11-16] MEDS: LEVOFLOXACIN / D5W 750 MG in PREMIXED IN D5W 150 ML IV SCH (10:01)
[2016-11-16] MEDS: DEXTROSE 5% 1000ML 1,000 ML IV SCH (10:25)
[2016-11-16] MEDS: FUROSEMIDE INJ 100 MG in DEXTROSE 5% 100ML 90 ML IV SCH (10:25)
[2016-11-16 10:33] LABS: CHOLESTEROL/HDL RATIO 2.7
--- NOTE | 2016-11-16 11:46 | DIAGNOSTIC IMAGING REPORT ---
VIDEO SWALLOW HISTORY: assess for aspiration, please schedule a time for 11/16/16 TECHNIQUE: Video fluoroscopic evaluation of swallowing was performed in the AP and lateral projections by the speech pathology staff. The patient is fed nectar-thick and thin liquid barium, a barium coated wafer, and barium pudding. FLUOROSCOPY TIME: 1.8 minutes. A cine loop was submitted. COMPARISON STUDY: None. FINDINGS: There is syeda aspiration with the initial teaspoon of thin liquid barium followed by cough. There is penetration without aspiration with the serial swallows of the thin liquid barium. Otherwise, swallowing function was within normal limits. Epiglottic deflection and hyoid excursion is maintained throughout the majority of the examination. IMPRESSION: 1. Syeda aspiration with the initial teaspoon of thin liquid barium followed by a cough. 2. Please see the speech pathologist report for detailed findings and recommendations. Electronically signed by: Arnie Alonso M.D. 11/16/2016 11:45 AM Dictated Date/Time: 11/16/2016 11:41 AM
[2016-11-16] MEDS: LACTOBACILLUS ACIDOPHILUS 1 GM PACK PO SCH ×2 (12:00→17:24)
--- NOTE | 2016-11-16 13:49 | Pharmacy Progress Note ---
Glycemic Control: Progress Nt Date of Service Nov 16, 2016. Scope Glycemic Pharmacist consulted by Dr Tinajero on 11/13/16 for glycemic control and to write orders per [facility] inpatient glycemic control protocol. Objective Accuchecks BSG (last 24hrs): Test 11/15/16 16:17 11/15/16 20:35 11/16/16 02:40 11/16/16 05:13 Bedside Glucose 328 mg/dl (70-90) 276 mg/dl (70-90) 187 mg/dl (70-90) Random Glucose 171 mg/dl (70-99) Test 11/16/16 07:24 11/16/16 10:32 Bedside Glucose 178 mg/dl (70-90) 292 mg/dl (70-90) Laboratory Data (last 24hrs) Test 11/16/16 05:13 Anion Gap 7.0 mmol/L BUN/Creatinine Ratio 46.3 Blood Urea Nitrogen 60 mg/dl Creatinine 1.30 mg/dl Potassium Level 4.0 mmol/L Sodium Level 150 mmol/L White Blood Count 15.47 K/uL Red Blood Count 2.95 M/uL Hemoglobin 10.3 g/dL Hematocrit 32.4 % Mean Corpuscular Volume 109.8 fL Mean Corpuscular Hemoglobin 34.9 pg Mean Corpuscular Hemoglobin Concent 31.8 g/dl Platelet Count 183 K/uL Mean Platelet Volume 9.9 fL Neutrophils (%) (Auto) 51.8 % Lymphocytes (%) (Auto) 35.6 % Monocytes (%) (Auto) 7.6 % Eosinophils (%) (Auto) 0.1 % Basophils (%) (Auto) 0.7 % Neutrophils # (Auto) 8.02 K/uL Lymphocytes # (Auto) 5.50 K/uL Monocytes # (Auto) 1.17 K/uL Eosinophils # (Auto) 0.02 K/uL Basophils # (Auto) 0.11 K/uL HbA1c: Item Value Date Time Hemoglobin A1c 6.1 % H 10/15/16 0545 Recent Pertinent Medications Outpatient Anti-diabetic Regimen: * Levemir 20 u BID * Novolog 30 u w/ breakfast + 45 u w/ lunch and dinner * Plus additional Novolog scale for high BSGs >350 mg/dL The patient is currently receiving: * Basal insulin: Levemir 25 units every 12 hours * Correctional Insulin: Novolog Correction per scale ACHS + 0200 Goal Range: Low 140 mg/dL - High 170 mg/dL Correction Factor: 13 mg/dL/unit * Prandial insulin: Per carb ratio of 1 unit per 4.5 grams CHO consumed Risk Factors for Insulin Resistance: * Steroids: Solumedrol 60 mg IV every 8 hours * Infection: Levaquin + Zosyn IV * Diet: T2DM Assessment & Plan ASSESSMENT: 11/13/16 (on admission): * 81 yo F admitted with acute respiratory failure, initiated on broad spectrum antibiotics and IV steroids * Due to NPO status, provider had given half dose of Levemir last night (unsure if morning Levemir was 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 However, more stringent targets may be selected in individual cases 11/16/16 * She has received ~115 units of insulin over the last 24 hrs and BSGs have ranged 140-328 mg/dL * Since the increase in steroids over the weekend to Solumedrol 60 mg IV every 8 hours, glycemic control has declined * Per ICU rounds, patient to be transferred out of the unit * Plans for transfer include a Lasix drip, D5 @ 30 cc/hr and a decrease in steroids to 40 mg IV every 12 hours- all of which will effect glycemic control * Of note, nurse originally documented 0 units of Novolog for a BSG of 292 mg/ dL due to transfer--> spoke with nurse, will change documentation- he gave 6 units at 12:05 which is still far under the correctional insulin required--> verbally told nurse to give remainder of required dose (7 units) * Despite the decrease in steroids, continue to tighten Novolog and decrease goal range as BSGs have consistently been >200 mg/dL * Continue current basal coverage as patient is known to have a sudden decrease in BSGs when steroids stopped PLAN FOR INPATIENT GLYCEMIC CONTROL: * Continue Levemir 25 units SQ BID; If BSG is less than 120 give only 1/2 dose (or 12 units) * Tighten correction factor to 10 mg/dl/unit * Change carb ratio to 1 unit per 4 grams CHO consumed * Change goal range to Low 120 mg/dL - High 160 mg/dL * Check BSG at 0200 tonight and cover w/ above Novolog correction * Reassess insulin doses with each step down in steroid dose * Please note that the plan above was derived based on current level of insulin resistance and hospital stress. These recommendations are appropriate for inpatient admission only. Plan of care upon discharge will need to be reassessed to avoid potential outpatient hypo/hyperglycemia. Thank you.
[2016-11-16 20:46] LABS: CALCIUM 8.6 mg/dl (8.5-10.1); CREATININE 1.4 mg/dl (0.60-1.20); POTASSIUM 3.7 mmol/L (3.5-5.1)
[2016-11-16] MEDS: PHENYTOIN SODIUM ER 100 MG CAP PO SCH (21:15)
[2016-11-16] MEDS: METHYLPREDNISOLONE IV 40 MG in SYRINGE 0 ML IV SCH (21:18)
[2016-11-16 22:44] LABS: BETA-HYDROXYBUTYRATE 0.89 mg/dL (0.2-2.81)
[2016-11-17] VITALS (14 sets, daily range): BP systolic 118–184; BP diastolic 59–94; PULSE 57–73; TEMP 36.4–36.9; O2SAT 92–100
[2016-11-17] MEDS: PIPERACILL/TAZOBAC IV 4.5 GM in DEXTROSE 5% 100ML IV SCH ×3 (00:04→16:33)
[2016-11-17] MEDS: INSULIN ASPART 100 UNITS/ML 3 ML PEN SC SCH ×5 (02:27→20:50)
[2016-11-17 05:20] LABS: HEMATOCRIT 34.1 % (37-47); MEAN CELL VOLUME 109.3 fL (80-100); MEAN CORPUSCULAR HEMOGLOBIN 34.6 pg (25-34); MEAN CORPUSCULAR HGB CONC 31.7 g/dl (32-36); PLATELET COUNT 197 K/uL (130-400); RED BLOOD COUNT 3.12 M/uL (4.2-5.4); WHITE BLOOD COUNT 21.28 K/uL (4.8-10.8)
[2016-11-17 05:46] LABS: BUN/CREATININE RATIO 44.5 (10-20); CALCIUM 8.6 mg/dl (8.5-10.1); CREATININE 1.3 mg/dl (0.60-1.20); POTASSIUM 3.5 mmol/L (3.5-5.1)
[2016-11-17 05:49] LABS: ALB/GLOB RATIO 0.6 (0.9-2)
[2016-11-17 05:59] LABS: BASO % 0.5 %; COMPLETE YES; EOS % 1.3 %; IG% 5.7 %; LYMPH % 52.3 %; LYMPH ABS # 11.12 K/uL (1.2-3.4); MONO % 4.7 %; NEUT % 35.5 %
[2016-11-17] MEDS: HEPARIN SOD 5000 UNIT/0.5 ML CARP SQ SCH ×3 (06:30→21:19)
[2016-11-17] MEDS: SIMVASTATIN 20 MG TAB PO SCH (07:49)
[2016-11-17] MEDS: PHENYTOIN SODIUM ER 30 MG CAP PO SCH (07:49)
[2016-11-17] MEDS: LACTOBACILLUS ACIDOPHILUS 1 GM PACK PO SCH ×3 (07:49→16:33)
[2016-11-17] MEDS: DOCUSATE SODIUM/SENNA 50/8.6MG TAB PO SCH (07:49)
[2016-11-17] MEDS: ASPIRIN 81 MG ECTAB PO SCH (07:49)
[2016-11-17] MEDS: CARVEDILOL 6.25 MG TAB PO SCH ×2 (07:49→20:43)
[2016-11-17] MEDS: RANITIDINE HCL 150 MG TAB PO SCH (07:49)
[2016-11-17] MEDS: METHYLPREDNISOLONE IV 40 MG in SYRINGE 0 ML IV SCH ×2 (07:51→21:32)
[2016-11-17] MEDS: BOOST VANILLA PUDDING CUP PO SCH ×3 (07:51→16:34)
[2016-11-17] MEDS: MAGNESIUM OXIDE 400 MG TAB PO SCH (07:52)
[2016-11-17] MEDS: INSULIN DETEMIR FLEXPEN/FLEX TOUCH 100 UNITS/ML 3ML SC SCH ×2 (08:00→20:48)
[2016-11-17] MEDS: DEXTROSE 5% 1000ML 1,000 ML IV SCH (08:03)
[2016-11-17] MEDS: ALBUT/IPRATROP 3MG/0.5MG NEB 3 ML VIAL INH SCH ×4 (08:33→20:41)
--- NOTE | 2016-11-17 08:56 | Progress Note ---
Subjective Date of Service: Nov 17, 2016. Subjective Pt evaluation today including: conversation w/ patient, conversation w/ family , physical exam, chart review, lab review Voiding: hamlin catheter in place Problem List Medical Problems: (1) Aspiration into airway Status: Acute (2) Congestive heart failure Status: Acute (3) Congestive heart failure Status: Acute (4) Elevated troponin I level Status: Acute (5) Hyperkalemia Status: Acute (6) Pneumonia Status: Acute Review of Systems Constitutional: No chills, No fatigue, No fever, No problem reported, No see HPI, No sweats, No weakness, No weight loss ENT: No dental problems, No hearing loss, No nasal symptoms, No problem reported, No see HPI, No sore throat, No tinnitus, No trouble swallowing, No unusual epistaxis Respiratory: + shortness of breath, + wheezing Cardiac: + chest pain, + edema Abdomen: No GI bleeding, No constipation, No diarrhea, No nausea, No pain, No problem reported, No see HPI, No vomiting Musculoskeletal: No calf pain, No joint pain, No muscle pain, No problem reported, No see HPI, No swelling Neurologic: No balance problems, No memory loss, No numbness/tingling, No paralysis, No problem reported, No see HPI, No vertigo, No weakness Skin: No bleeding, No color change, No itch, No new/changing skin lesions, No problem reported, No rash, No see HPI Medications Current Inpatient Medications Medications (Trade) Dose Ordered Sig/Margot Route Start Time Stop Time Status Last Admin Dose Admin Acetaminophen (Tylenol Tab) 650 mg Q4H PRN PO 11/12/16 11:45 12/12/16 11:44 Al Hydrox/Mg Hydrox/Simethicone (Maalox Max Susp) 15 ml Q4H PRN PO 11/12/16 11:45 12/12/16 11:44 Magnesium Hydroxide (Milk Of Magnesia Susp) 30 ml Q12H PRN PO 11/12/16 11:45 12/12/16 11:44 Ondansetron HCl (Zofran Inj) 4 mg Q6H PRN IV 11/12/16 11:45 12/12/16 11:44 Nitroglycerin (Nitrostat Tab) 0.4 mg UD PRN SL 11/12/16 11:45 12/12/16 11:44 Polyethylene 17 gm 17 gm DAILY PRN PO 11/12/16 13:30 12/12/16 13:29 Levofloxacin/Prmx (Levaquin / D5W/ Premixed D5W) 150 ml @ 100 mls/hr Q48H IV 11/14/16 10:00 11/18/16 23:59 11/16/16 10:01 100 MLS/HR Magnesium Oxide (Mag-Ox Tab) 400 mg QAM PO 11/13/16 09:00 12/13/16 08:59 11/17/16 07:52 400 MG Senna/Docusate Sodium (Senokot S Tab) 1 tab DAILY PO 11/13/16 09:00 12/13/16 08:59 11/17/16 07:49 1 TAB Hydralazine HCl (HydrALAZINE INJ) 10 mg Q6H PRN IV. 11/12/16 11:45 12/12/16 11:44 Albuterol/ Ipratropium (Duoneb) 3 ml QIDR INH 11/12/16 16:00 12/12/16 15:59 11/17/16 08:33 3 ML Glucose (Glucose 40% Gel) 15-30 GRAMS 15 GRAMS... UD PRN PO 11/12/16 14:00 12/12/16 13:59 Glucose (Glucose Chew Tab) 4-8 Tablets 4 Tabl... UD PRN PO 11/12/16 14:00 12/12/16 13:59 Dextrose (Dextrose 50% 50ML Syringe) 25-50ML OF 50% DW IV FOR... UD PRN IV 11/12/16 14:00 12/12/16 13:59 Glucagon (Glucagon Inj) 1 mg UD PRN SQ 11/12/16 14:00 12/12/16 13:59 Piperacillin Sod/ Tazobactam Sod 1 ea 1 ea UD PRN N/A 11/12/16 14:00 11/18/16 23:59 Piperacillin Sod/ Tazobactam Sod/ Dextrose (Zosyn Iv/D5 100ml) 120 ml @ 30 mls/hr Q8H IV 11/12/16 16:00 11/18/16 23:59 11/17/16 07:51 30 MLS/HR Levofloxacin (Consult) 1 ea UD PRN N/A 11/12/16 14:45 11/18/16 23:59 Miscellaneous Information (Consult Glycemic Management Pharmacy) 1 ea UD PRN N/A 11/13/16 07:00 12/13/16 06:59 Aspirin (Ecotrin Tab) 81 mg QAM PO 11/14/16 09:00 12/14/16 08:59 11/17/16 07:49 81 MG Carvedilol (Coreg Tab) 6.25 mg BID PO 11/14/16 09:00 12/14/16 08:59 11/17/16 07:49 6.25 MG Simvastatin (Zocor Tab) 20 mg QAM PO 11/14/16 09:00 12/14/16 08:59 11/17/16 07:49 20 MG Ranitidine HCl (zANTac TAB) 150 mg QAM PO 11/15/16 09:00 12/15/16 08:59 11/17/16 07:49 150 MG Phenytoin Sodium (Dilantin Er Cap) 60 mg QAM PO 11/15/16 09:00 12/15/16 08:59 11/17/16 07:49 60 MG Phenytoin Sodium (Dilantin Er Cap) 100 mg QPM PO 11/15/16 21:00 12/15/16 20:59 11/16/16 21:15 100 MG Enteral Nutritional Formula (Boost Pudding) 1 cup TIDM PO 11/14/16 16:30 12/14/16 16:29 11/17/16 07:51 1 CUP Insulin Detemir (Levemir Flexpen/ FlexTouch) BID SC 11/14/16 21:00 12/14/16 20:59 11/17/16 08:00 25 UNIT Bisacodyl (Dulcolax Supp) 10 mg DAILY PRN [place] 11/15/16 11:00 12/15/16 10:59 Heparin Sodium (Porcine) (Heparin Sq 5000 Unit/0.5ml) 5,000 unit Q8@0600,1400,2200 SQ 11/15/16 15:00 12/15/16 14:59 11/17/16 06:30 5,000 UNIT Insulin Aspart (novoLOG ASPART) SLIDING SCALE G... ACHS SC 11/15/16 16:00 12/15/16 15:59 11/16/16 11:30 6 UNITS Insulin Aspart SLIDING SCALE G... 0200 SC 11/16/16 02:00 12/16/16 01:59 11/17/16 02:27 9 UNITS Methylprednisolone Sodium Succinate 40 mg/Syringe 0.64 ml @ 1.5 mls/min Q12H IV 11/16/16 20:00 12/16/16 19:59 11/17/16 07:51 1.5 MLS/MIN Furosemide/ Dextrose (Lasix Inj/D5 100ml) 100 ml @ 3 mls/hr Q24H IV 11/16/16 10:30 12/16/16 10:29 11/16/16 10:25 3 MLS/HR Lactobacillus Acidophilus (Lactinex Granules Pack) 1 gm TIDM PO 11/16/16 11:30 12/16/16 11:29 11/17/16 07:49 1 GM Objective Vital Signs Date Time Temp Pulse Resp B/P Pulse Ox O2 Delivery O2 Flow Rate FiO2 11/17/16 08:33 68 18 99 Nasal Cannula 3.0 11/17/16 04:15 58 92 40 11/17/16 04:00 36.6 57 25 122/59 97 BiPAP 11/17/16 04:00 BiPAP 40 11/17/16 00:15 60 98 40 11/16/16 23:59 BiPAP 40 11/16/16 23:59 36.2 63 26 149/79 96 BiPAP 40 59 11/16/16 22:26 67 98 40 11/16/16 21:00 36.8 71 21 168/77 94 Nasal Cannula 2.0 11/16/16 20:00 Nasal Cannula 4.0 11/16/16 19:35 70 18 98 Nasal Cannula 3.0 11/16/16 17:52 36.2 74 28 154/79 96 Nasal Cannula 4.0 11/16/16 15:45 36.2 72 28 160/79 96 Nasal Cannula 4.0 11/16/16 15:45 Nasal Cannula 4.0 11/16/16 15:03 77 18 98 Nasal Cannula 3.0 11/16/16 14:00 36.6 71 30 140/103 94 11/16/16 13:00 71 24 96 11/16/16 12:00 72 25 94 11/16/16 12:00 72 25 94 11/16/16 11:58 72 31 142/91 94 11/16/16 11:35 69 27 161/79 95 11/16/16 11:15 Nasal Cannula 4.0 11/16/16 10:00 71 27 96 11/16/16 09:58 73 31 151/74 11/16/16 09:30 36.2 74 24 155/87 96 Nasal Cannula 4.0 11/16/16 09:00 74 27 90 11/16/16 08:58 76 29 155/87 Physical Exam General Appearance: + mild distress Eyes: PERRL, EOMI ENT: normal ENT inspection, hearing grossly normal Neck: supple Respiratory/Chest: chest non-tender, + decreased breath sounds, + rales Cardiovascular: regular rate, rhythm, no edema, no gallop Abdomen: normal bowel sounds, non tender, soft Extremities: normal range of motion, non-tender, + swelling 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, no motor/sensory deficits, alert, normal mood/affect Skin: normal color, warm/dry, no rash Laboratory Results Last 24 Hours Test 11/16/16 09:41 11/16/16 10:32 11/16/16 12:15 11/16/16 15:12 Triglycerides Level 139 mg/dl Cholesterol Level 104 mg/dl HDL Cholesterol 39 mg/dl LDL Cholesterol, Calculated 37 mg/dl VLDL Cholesterol, Calculated 28 mg/dl Cholesterol/HDL Ratio 2.7 Procalcitonin 1.19 ng/mL Bedside Glucose 292 mg/dl 287 mg/dl Test 11/16/16 19:56 11/16/16 21:12 11/17/16 02:23 11/17/16 05:13 Sodium Level 144 mmol/L 143 mmol/L Potassium Level 3.7 mmol/L 3.5 mmol/L Chloride Level 98 mmol/L 98 mmol/L Carbon Dioxide Level 38 mmol/L 38 mmol/L Anion Gap 8.0 mmol/L 7.0 mmol/L Blood Urea Nitrogen 60 mg/dl 58 mg/dl Creatinine 1.40 mg/dl 1.30 mg/dl Est Creatinine Clear Calc Drug Dose 32.7 ml/min 35.2 ml/min Estimated GFR () 40.2 43.9 Estimated GFR (Non- 34.7 37.9 BUN/Creatinine Ratio 43.0 44.5 Random Glucose 305 mg/dl 204 mg/dl Calcium Level 8.6 mg/dl 8.6 mg/dl Beta-Hydroxybutyric Acid 0.89 mg/dL Bedside Glucose 280 mg/dl 241 mg/dl White Blood Count 21.28 K/uL Red Blood Count 3.12 M/uL Hemoglobin 10.8 g/dL Hematocrit 34.1 % Mean Corpuscular Volume 109.3 fL Mean Corpuscular Hemoglobin 34.6 pg Mean Corpuscular Hemoglobin Concent 31.7 g/dl Platelet Count 197 K/uL Mean Platelet Volume 10.0 fL Neutrophils (%) (Auto) 35.5 % Lymphocytes (%) (Auto) 52.3 % Monocytes (%) (Auto) 4.7 % Eosinophils (%) (Auto) 1.3 % Basophils (%) (Auto) 0.5 % Neutrophils # (Auto) 7.57 K/uL Lymphocytes # (Auto) 11.12 K/uL Monocytes # (Auto) 1.00 K/uL Eosinophils # (Auto) 0.28 K/uL Basophils # (Auto) 0.10 K/uL RDW Standard Deviation 52.8 fL RDW Coefficient of Variation 13.5 % Immature Granulocyte % (Auto) 5.7 % Immature Granulocyte # (Auto) 1.21 K/uL Nucleated RBC Absolute Count (auto) 0.05 K/uL Nucleated Red Blood Cells % 0.2 % Lactic Acid Level 1.7 mmol/L Total Bilirubin 0.5 mg/dl Aspartate Amino Transf (AST/SGOT) 29 U/L Alanine Aminotransferase (ALT/SGPT) 24 U/L Alkaline Phosphatase 80 U/L Total Protein 6.0 gm/dl Albumin 2.2 gm/dl Globulin 3.8 gm/dl Albumin/Globulin Ratio 0.6 Test 11/17/16 07:55 Bedside Glucose 168 mg/dl Assessment and Plan 81 y/o female, with PMHx of systolic CHF, b-cell lymphoma,dementia, CVA, HTN, DM , hyperlipidemia, and seizure disorder, who presented to the ED from [facility] because of acute respiratory failure. Acute hypoxic respiratory failure secondary to below HCAP w sepsis POA Ordered urine legionella, rapid strept , sputum Cx all pending continue zosyn/levofloxacin procalcitonin is > 1 acute on chronic Systolic CHF POA continue low dose lasix drip 3ml/hr I/Os continue BIPAP hold lisinopril to make room for lasix and to avoid nephrotoxicity continue coreg when appropriate restart AARBs Elevated troponin, likely secondary to severe demand ischemia: - echo fortunately unchanged, troponins without further elevation possible aspiration/dysphagia speech eval appreciated - continue modified diet Hypernatremia S/P Diamox 500mg and Diuril 500mg IV once to potentiate hyponatremia D5W at 30cc/hour over night hypernatremia resolved, D5 was stopped will monitor sodium level CKD stage II appears to be at base line Hyperkalemia: - improving T2DM: - Pharmacy consulted for glycemic management Seizure disorder: - Continue Phenytoin - Checked Phenytoin level= 10.8 HTN: - Hold Cozaar 100 mg PO daily due to DEJUAN and to make room for lasix drip - Hydralazine 10 mg IV PRN q6hrs for SBP >170, DBP >100 and HR <70 + IV Lopressor 5 mg q6 hrs -continue coreg Hyperlipidemia: - Hold Zocor 20 mg PO daily. Start Atorvastatin 40 mg PO daily GI Prophylaxis: - IV Pepcid - Maalox PRN - IV Zofran PRN - Colace and/or Milk of Mag PRN DVT prophylaxis: - Heparin 5000 units SQ q12 hrs - CANDACE and SCDs Dispo: - Resident of [place] Sally ghosh, likely can move to telemetry today
[2016-11-17] MEDS: FUROSEMIDE INJ 100 MG in DEXTROSE 5% 100ML 90 ML IV SCH (12:51)
[2016-11-17] MEDS: PHENYTOIN SODIUM ER 100 MG CAP PO SCH (20:43)
[2016-11-18] VITALS (14 sets, daily range): BP systolic 126–163; BP diastolic 66–85; PULSE 54–76; TEMP 36.4–37; O2SAT 93–99; BMI 46.9
[2016-11-18] MEDS: PIPERACILL/TAZOBAC IV 4.5 GM in DEXTROSE 5% 100ML IV SCH ×3 (00:19→16:55)
[2016-11-18] MEDS: INSULIN ASPART 100 UNITS/ML 3 ML PEN SC SCH ×5 (02:00→21:31)
[2016-11-18] MEDS: HEPARIN SOD 5000 UNIT/0.5 ML CARP SQ SCH ×3 (06:10→21:32)
[2016-11-18 06:42] LABS: MEAN CELL VOLUME 105.4 fL (80-100); MEAN CORPUSCULAR HEMOGLOBIN 34.2 pg (25-34); MEAN CORPUSCULAR HGB CONC 32.4 g/dl (32-36); MEAN PLATELET VOLUME 9.9 fL (7.4-10.4); PLATELET COUNT 205 K/uL (130-400); RED BLOOD COUNT 3.13 M/uL (4.2-5.4); WHITE BLOOD COUNT 27.06 K/uL (4.8-10.8)
[2016-11-18 07:15] LABS: BUN/CREATININE RATIO 42.5 (10-20); CALCIUM 8.4 mg/dl (8.5-10.1); CREATININE 1.3 mg/dl (0.60-1.20); MAGNESIUM 2.3 mg/dl (1.8-2.4); PHOSPHORUS 2.5 mg/dl (2.5-4.9); POTASSIUM 3.7 mmol/L (3.5-5.1)
[2016-11-18] MEDS: ALBUT/IPRATROP 3MG/0.5MG NEB 3 ML VIAL INH SCH ×4 (07:20→19:41)
[2016-11-18 07:44] LABS: BASO % 0.6 %; BASO ABS # 0.17 K/uL (0-0.2); COMPLETE YES; EOS % 2.9 %; IG% 6.8 %; LYMPH % 53.3 %; LYMPH ABS # 14.41 K/uL (1.2-3.4); MONO % 3.2 %; NEUT % 33.2 %; SMUDGE CELLS PRESENT
[2016-11-18] MEDS: METHYLPREDNISOLONE IV 40 MG in SYRINGE 0 ML IV SCH ×2 (08:51→21:26)
[2016-11-18] MEDS: INSULIN DETEMIR FLEXPEN/FLEX TOUCH 100 UNITS/ML 3ML SC SCH ×2 (08:51→21:31)
[2016-11-18] MEDS: SIMVASTATIN 20 MG TAB PO SCH (08:52)
[2016-11-18] MEDS: LACTOBACILLUS ACIDOPHILUS 1 GM PACK PO SCH ×3 (08:52→16:55)
[2016-11-18] MEDS: DOCUSATE SODIUM/SENNA 50/8.6MG TAB PO SCH (08:52)
[2016-11-18] MEDS: ASPIRIN 81 MG ECTAB PO SCH (08:52)
[2016-11-18] MEDS: RANITIDINE HCL 150 MG TAB PO SCH (08:52)
[2016-11-18] MEDS: CARVEDILOL 6.25 MG TAB PO SCH ×2 (08:52→21:27)
[2016-11-18] MEDS: MAGNESIUM OXIDE 400 MG TAB PO SCH (08:52)
[2016-11-18] MEDS: PHENYTOIN SODIUM ER 30 MG CAP PO SCH (08:53)
[2016-11-18] MEDS: BOOST VANILLA PUDDING CUP PO SCH ×3 (08:54→16:30)
[2016-11-18] MEDS: LEVOFLOXACIN / D5W 750 MG in PREMIXED IN D5W 150 ML IV SCH (10:06)
[2016-11-18] MEDS: FUROSEMIDE INJ 100 MG in DEXTROSE 5% 100ML 90 ML IV SCH (10:06)
--- NOTE | 2016-11-18 12:52 | Pharmacy Progress Note ---
Glycemic Control: Progress Nt Date of Service Nov 18, 2016. Scope Glycemic Pharmacist consulted by Dr Tinajero on 11/13/16 for glycemic control and to write orders per [facility] inpatient glycemic control protocol. Objective Accuchecks BSG (last 24hrs): Test 11/17/16 15:49 11/17/16 15:59 11/17/16 16:07 11/17/16 20:36 Bedside Glucose 342 mg/dl (70-90) 278 mg/dl (70-90) 289 mg/dl (70-90) 280 mg/dl (70-90) Test 11/18/16 02:34 11/18/16 06:17 11/18/16 06:26 11/18/16 10:57 Bedside Glucose 132 mg/dl (70-90) 101 mg/dl (70-90) 161 mg/dl (70-90) Random Glucose 98 mg/dl (70-99) Test 11/18/16 11:56 Bedside Glucose 241 mg/dl (70-90) Laboratory Data (last 24hrs) Test 11/18/16 06:26 Anion Gap 7.0 mmol/L BUN/Creatinine Ratio 42.5 Blood Urea Nitrogen 55 mg/dl Creatinine 1.30 mg/dl Potassium Level 3.7 mmol/L Sodium Level 144 mmol/L White Blood Count 27.06 K/uL Red Blood Count 3.13 M/uL Hemoglobin 10.7 g/dL Hematocrit 33.0 % Mean Corpuscular Volume 105.4 fL Mean Corpuscular Hemoglobin 34.2 pg Mean Corpuscular Hemoglobin Concent 32.4 g/dl Platelet Count 205 K/uL Mean Platelet Volume 9.9 fL Neutrophils (%) (Auto) 33.2 % Lymphocytes (%) (Auto) 53.3 % Monocytes (%) (Auto) 3.2 % Eosinophils (%) (Auto) 2.9 % Basophils (%) (Auto) 0.6 % Neutrophils # (Auto) 8.97 K/uL Lymphocytes # (Auto) 14.41 K/uL Monocytes # (Auto) 0.87 K/uL Eosinophils # (Auto) 0.79 K/uL Basophils # (Auto) 0.17 K/uL Recent Pertinent Medications Outpatient Anti-diabetic Regimen: * Levemir 20 u BID * Novolog 30 u w/ breakfast + 45 u w/ lunch and dinner * Plus additional Novolog scale for high BSGs >350 mg/dL The patient is currently receiving: * Basal insulin: Levemir 25 units every 12 hours (give 12 units if BSG <120 mg/dL) * Correctional Insulin: Novolog Correction per scale ACHS + 0200 Goal Range: Low 120 mg/dL - High 160 mg/dL Correction Factor: 10 mg/dL/unit * Prandial insulin: Per carb ratio of 1 unit per 3 grams CHO consumed Risk Factors for Insulin Resistance: * Steroids: Solumedrol 40 mg IV every 12 hours * Infection: Levaquin + Zosyn IV * Diet: T2DM Assessment & Plan ASSESSMENT: 11/13/16 (on admission): * 81 yo F admitted with acute respiratory failure, initiated on broad spectrum antibiotics and IV steroids * Due to NPO status, provider had given half dose of Levemir last night (unsure if morning Levemir was given FIXED [employer]) * Since patient was given reduced basal and IV steroids continued- patient is now hyperglycemic with BSGs consistently > 200 mg/dL * My plan will be to restart her home dose of Levemir this AM * Tighten Novolog and change checks while NPO to q4hrs until BSGs within goal range * ADA & AACE recommend a goal blood sugar range 140-180 mg/dl for the majority of critically ill & non-critically ill patients. However, more stringent targets may be selected in individual cases 11/16/16 * She has received ~115 units of insulin over the last 24 hrs and BSGs have ranged 140-328 mg/dL * Since the increase in steroids over the weekend to Solumedrol 60 mg IV every 8 hours, glycemic control has declined * Per ICU rounds, patient to be transferred out of the unit * Plans for transfer include a Lasix drip, D5 @ 30 cc/hr and a decrease in steroids to 40 mg IV every 12 hours- all of which will effect glycemic control * Of note, nurse originally documented 0 units of Novolog for a BSG of 292 mg/ dL due to transfer--> spoke with nurse, will change documentation- he gave 6 units at 12:05 which is still far under the correctional insulin required--> verbally told nurse to give remainder of required dose (7 units) * Despite the decrease in steroids, continue to tighten Novolog and decrease goal range as BSGs have consistently been >200 mg/dL * Continue current basal coverage as patient is known to have a sudden decrease in BSGs when steroids stopped 11/18/16 * She has received ~132 units of insulin over the last 24 hours and BSGs range 164-289 mg/dL * I have continued to tighten Novolog daily but not aggressively enough * Fasting BSG this AM 101 mg/dL- 12 units of basal insulin given instead of 25 units * Since all prandial BSGs elevated yesterday, continue to tighten carb ratio * She did not eat very many carbs for breakfast or lunch so it should be interesting to see what these changes will do once her appetite is more stable * Since Fasting below goal range, decrease back to home Levemir dosing and reassess in the AM * Patient did not require insulin with overnight check- d/c additional check PLAN FOR INPATIENT GLYCEMIC CONTROL: * Change to Levemir 20 units SQ BID; If BSG is less than 120 give only 1/2 dose (or 10 units) * Continue correction factor of 10 mg/dl/unit * Change carb ratio to 1 unit per 2.5 grams CHO consumed * Change goal range to Low 120 mg/dL - High 150 mg/dL * Reassess insulin doses with each step down in steroid dose * Please note that the plan above was derived based on current level of insulin resistance and hospital stress. These recommendations are appropriate for inpatient admission only. Plan of care upon discharge will need to be reassessed to avoid potential outpatient hypo/hyperglycemia. Thank you.
--- NOTE | 2016-11-18 15:19 | Progress Note ---
Subjective Date of Service: Nov 18, 2016. Subjective Pt evaluation today including: conversation w/ patient, conversation w/ family , physical exam, chart review, lab review Voiding: no voiding problems Problem List Medical Problems: (1) Aspiration into airway Status: Acute (2) Congestive heart failure Status: Acute (3) Congestive heart failure Status: Acute (4) Elevated troponin I level Status: Acute (5) Hyperkalemia Status: Acute (6) Pneumonia Status: Acute Review of Systems ROS is unobtainable due to change in mental status Medications Current Inpatient Medications Medications (Trade) Dose Ordered Sig/Margot Route Start Time Stop Time Status Last Admin Dose Admin Acetaminophen (Tylenol Tab) 650 mg Q4H PRN PO 11/12/16 11:45 12/12/16 11:44 Al Hydrox/Mg Hydrox/Simethicone (Maalox Max Susp) 15 ml Q4H PRN PO 11/12/16 11:45 12/12/16 11:44 Magnesium Hydroxide (Milk Of Magnesia Susp) 30 ml Q12H PRN PO 11/12/16 11:45 12/12/16 11:44 Ondansetron HCl (Zofran Inj) 4 mg Q6H PRN IV 11/12/16 11:45 12/12/16 11:44 Nitroglycerin (Nitrostat Tab) 0.4 mg UD PRN SL 11/12/16 11:45 12/12/16 11:44 Polyethylene 17 gm 17 gm DAILY PRN PO 11/12/16 13:30 12/12/16 13:29 Levofloxacin/Prmx (Levaquin / D5W/ Premixed D5W) 150 ml @ 100 mls/hr Q48H IV 11/14/16 10:00 11/18/16 23:59 11/18/16 10:06 100 MLS/HR Magnesium Oxide (Mag-Ox Tab) 400 mg QAM PO 11/13/16 09:00 12/13/16 08:59 11/18/16 08:52 400 MG Senna/Docusate Sodium (Senokot S Tab) 1 tab DAILY PO 11/13/16 09:00 12/13/16 08:59 11/18/16 08:52 1 TAB Hydralazine HCl (HydrALAZINE INJ) 10 mg Q6H PRN IV. 11/12/16 11:45 12/12/16 11:44 Albuterol/ Ipratropium (Duoneb) 3 ml QIDR INH 11/12/16 16:00 12/12/16 15:59 11/18/16 07:20 3 ML Glucose (Glucose 40% Gel) 15-30 GRAMS 15 GRAMS... UD PRN PO 11/12/16 14:00 12/12/16 13:59 Glucose (Glucose Chew Tab) 4-8 Tablets 4 Tabl... UD PRN PO 11/12/16 14:00 12/12/16 13:59 Dextrose (Dextrose 50% 50ML Syringe) 25-50ML OF 50% DW IV FOR... UD PRN IV 11/12/16 14:00 12/12/16 13:59 Glucagon (Glucagon Inj) 1 mg UD PRN SQ 11/12/16 14:00 12/12/16 13:59 Piperacillin Sod/ Tazobactam Sod 1 ea 1 ea UD PRN N/A 11/12/16 14:00 11/18/16 23:59 Piperacillin Sod/ Tazobactam Sod/ Dextrose (Zosyn Iv/D5 100ml) 120 ml @ 30 mls/hr Q8H IV 11/12/16 16:00 11/18/16 23:59 11/18/16 08:54 30 MLS/HR Levofloxacin (Consult) 1 ea UD PRN N/A 11/12/16 14:45 11/18/16 23:59 Miscellaneous Information (Consult Glycemic Management Pharmacy) 1 ea UD PRN N/A 11/13/16 07:00 12/13/16 06:59 Aspirin (Ecotrin Tab) 81 mg QAM PO 11/14/16 09:00 12/14/16 08:59 11/18/16 08:52 81 MG Carvedilol (Coreg Tab) 6.25 mg BID PO 11/14/16 09:00 12/14/16 08:59 11/18/16 08:52 6.25 MG Simvastatin (Zocor Tab) 20 mg QAM PO 11/14/16 09:00 12/14/16 08:59 11/18/16 08:52 20 MG Ranitidine HCl (zANTac TAB) 150 mg QAM PO 11/15/16 09:00 12/15/16 08:59 11/18/16 08:52 150 MG Phenytoin Sodium (Dilantin Er Cap) 60 mg QAM PO 11/15/16 09:00 12/15/16 08:59 11/18/16 08:53 60 MG Phenytoin Sodium (Dilantin Er Cap) 100 mg QPM PO 11/15/16 21:00 12/15/16 20:59 11/17/16 20:43 100 MG Enteral Nutritional Formula (Boost Pudding) 1 cup TIDM PO 11/14/16 16:30 12/14/16 16:29 11/18/16 08:54 1 CUP Insulin Detemir (Levemir Flexpen/ FlexTouch) BID SC 11/14/16 21:00 12/14/16 20:59 11/18/16 08:51 12 UNIT Bisacodyl (Dulcolax Supp) 10 mg DAILY PRN CO 11/15/16 11:00 12/15/16 10:59 Heparin Sodium (Porcine) (Heparin Sq 5000 Unit/0.5ml) 5,000 unit Q8@0600,1400,2200 SQ 11/15/16 15:00 12/15/16 14:59 11/18/16 14:50 5,000 UNIT Insulin Aspart SLIDING SCALE G... ACHS SC 11/15/16 16:00 12/15/16 15:59 11/18/16 11:59 13 UNITS Methylprednisolone Sodium Succinate 40 mg/Syringe 0.64 ml @ 1.5 mls/min Q12H IV 11/16/16 20:00 12/16/16 19:59 11/18/16 08:51 1.5 MLS/MIN Furosemide/ Dextrose (Lasix Inj/D5 100ml) 100 ml @ 3 mls/hr Q24H IV 11/16/16 10:30 12/16/16 10:29 11/18/16 10:06 3 MLS/HR Lactobacillus Acidophilus (Lactinex Granules Pack) 1 gm TIDM PO 11/16/16 11:30 12/16/16 11:29 11/18/16 12:00 1 GM Objective Vital Signs Date Time Temp Pulse Resp B/P Pulse Ox O2 Delivery O2 Flow Rate FiO2 11/18/16 12:00 96 Nasal Cannula 2.0 11/18/16 12:00 70 23 135/75 95 Nasal Cannula 2.0 11/18/16 10:30 37.0 20 126/84 95 Nasal Cannula 2.0 11/18/16 08:00 95 Nasal Cannula 2.0 11/18/16 08:00 95 Nasal Cannula 2.0 11/18/16 07:20 54 18 99 BiPAP/CPAP 40 11/18/16 07:16 55 99 40 11/18/16 04:00 97 BiPAP 40 11/18/16 03:59 61 21 163/85 97 BiPAP 40 11/17/16 23:59 97 BiPAP 40 11/17/16 23:59 36.9 63 24 134/68 100 BiPAP 40 11/17/16 20:54 73 97 40 11/17/16 20:43 73 24 97 BiPAP/CPAP 40 11/17/16 20:00 36.6 73 18 131/70 93 Nasal Cannula 2.0 11/17/16 20:00 93 Nasal Cannula 2.0 11/17/16 18:00 36.4 65 18 124/72 Nasal Cannula 2.0 11/17/16 16:05 68 22 96 Nasal Cannula 2.0 11/17/16 16:00 36.8 70 22 148/81 93 Nasal Cannula 2.0 11/17/16 16:00 93 Nasal Cannula 2.0 Physical Exam General Appearance: no apparent distress Eyes: normal inspection, EOMI ENT: normal ENT inspection, hearing grossly normal Neck: supple Respiratory/Chest: + decreased breath sounds, + crackles Cardiovascular: regular rate, rhythm, no edema, no gallop, no murmur Abdomen: normal bowel sounds, non tender, soft, no organomegaly Extremities: normal range of motion, non-tender, normal inspection, no pedal edema 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, no motor/sensory deficits, alert, normal mood/affect, oriented x 3 Skin: normal color, warm/dry, no rash Laboratory Results Last 24 Hours Test 11/17/16 15:49 11/17/16 15:59 11/17/16 16:07 11/17/16 20:36 Bedside Glucose 342 mg/dl 278 mg/dl 289 mg/dl 280 mg/dl Test 11/18/16 02:34 11/18/16 06:17 11/18/16 06:26 11/18/16 10:57 Bedside Glucose 132 mg/dl 101 mg/dl 161 mg/dl White Blood Count 27.06 K/uL Red Blood Count 3.13 M/uL Hemoglobin 10.7 g/dL Hematocrit 33.0 % Mean Corpuscular Volume 105.4 fL Mean Corpuscular Hemoglobin 34.2 pg Mean Corpuscular Hemoglobin Concent 32.4 g/dl Platelet Count 205 K/uL Mean Platelet Volume 9.9 fL Neutrophils (%) (Auto) 33.2 % Lymphocytes (%) (Auto) 53.3 % Monocytes (%) (Auto) 3.2 % Eosinophils (%) (Auto) 2.9 % Basophils (%) (Auto) 0.6 % Neutrophils # (Auto) 8.97 K/uL Lymphocytes # (Auto) 14.41 K/uL Monocytes # (Auto) 0.87 K/uL Eosinophils # (Auto) 0.79 K/uL Basophils # (Auto) 0.17 K/uL RDW Standard Deviation 50.7 fL RDW Coefficient of Variation 13.4 % Immature Granulocyte % (Auto) 6.8 % Immature Granulocyte # (Auto) 1.85 K/uL Nucleated RBC Absolute Count (auto) 0.06 K/uL Nucleated Red Blood Cells % 0.2 % Smudge Cells PRESENT Sodium Level 144 mmol/L Potassium Level 3.7 mmol/L Chloride Level 100 mmol/L Carbon Dioxide Level 37 mmol/L Anion Gap 7.0 mmol/L Blood Urea Nitrogen 55 mg/dl Creatinine 1.30 mg/dl Est Creatinine Clear Calc Drug Dose 35.2 ml/min Estimated GFR () 43.9 Estimated GFR (Non- 37.9 BUN/Creatinine Ratio 42.5 Random Glucose 98 mg/dl Calcium Level 8.4 mg/dl Phosphorus Level 2.5 mg/dl Magnesium Level 2.3 mg/dl Test 11/18/16 11:56 Bedside Glucose 241 mg/dl Assessment and Plan 81 y/o female, with PMHx of systolic CHF, b-cell lymphoma,dementia, CVA, HTN, DM , hyperlipidemia, and seizure disorder, who presented to the ED from [facility] because of acute respiratory failure. Acute hypoxic respiratory failure secondary to below HCAP w sepsis POA Ordered urine legionella, pending but she was treated any way empirically negative rapid strept and sputum Cx continue zosyn/levofloxacin day 7/7, will monitor off Abx from tomorrow procalcitonin is > 1 acute on chronic Systolic CHF POA continue low dose lasix drip 3ml/hr , I/Os (-7.5L) continue prn BIPAP continue holding lisinopril to make room for lasix and to avoid nephrotoxicity continue coreg when appropriate restart AARBs Elevated troponin, likely secondary to severe demand ischemia: - echo fortunately unchanged, troponins without further elevation possible aspiration/dysphagia speech eval appreciated - continue modified diet repeat speech eval for a possible episode of aspiration today Hypernatremia S/P Diamox 500mg and Diuril 500mg IV once to potentiate hyponatremia s/p D5W at 30cc/hour over night hypernatremia resolved, D5 was stopped will monitor sodium level CKD stage II appears to be at base line Hyperkalemia: - improving T2DM: - Pharmacy consulted for glycemic management Seizure disorder: - Continue Phenytoin - Checked Phenytoin level= 10.8 HTN: - Hold Cozaar 100 mg PO daily due to DEJUAN and to make room for lasix drip - Hydralazine 10 mg IV PRN q6hrs for SBP >170, DBP >100 and HR <70 + IV Lopressor 5 mg q6 hrs -continue coreg Hyperlipidemia: - Hold Zocor 20 mg PO daily. Start Atorvastatin 40 mg PO daily GI Prophylaxis: - IV Pepcid - Maalox PRN - IV Zofran PRN - Colace and/or Milk of Mag PRN DVT prophylaxis: - Heparin 5000 units SQ q12 hrs - CANDACE and SCDs Dispo: - Resident of [facility]
[2016-11-18] MEDS: PHENYTOIN SODIUM ER 100 MG CAP PO SCH (21:27)
[2016-11-19] VITALS (14 sets, daily range): BP systolic 128–152; BP diastolic 63–79; PULSE 64–87; TEMP 36.3–36.8; O2SAT 95–99
[2016-11-19 05:34] LABS: HEMATOCRIT 33.4 % (37-47); MEAN CORPUSCULAR HEMOGLOBIN 34.3 pg (25-34); MEAN CORPUSCULAR HGB CONC 32.3 g/dl (32-36); MEAN PLATELET VOLUME 9.9 fL (7.4-10.4); PLATELET COUNT 199 K/uL (130-400); RED BLOOD COUNT 3.15 M/uL (4.2-5.4); WHITE BLOOD COUNT 27.31 K/uL (4.8-10.8)
[2016-11-19 06:06] LABS: BUN/CREATININE RATIO 42.1 (10-20); CALCIUM 8.4 mg/dl (8.5-10.1); CREATININE 1.4 mg/dl (0.60-1.20); MAGNESIUM 2.2 mg/dl (1.8-2.4); POTASSIUM 3.8 mmol/L (3.5-5.1)
[2016-11-19 06:09] LABS: ALB/GLOB RATIO 0.6 (0.9-2); PHOSPHORUS 2.9 mg/dl (2.5-4.9)
[2016-11-19] MEDS: HEPARIN SOD 5000 UNIT/0.5 ML CARP SQ SCH ×3 (06:17→20:18)
[2016-11-19] MEDS: ALBUT/IPRATROP 3MG/0.5MG NEB 3 ML VIAL INH SCH ×4 (07:20→19:52)
[2016-11-19 07:21] LABS: BASO % 0.8 %; BASO ABS # 0.21 K/uL (0-0.2); COMPLETE YES; EOS % 2.1 %; IG% 7.9 %; LYMPH % 46.8 %; LYMPH ABS # 12.77 K/uL (1.2-3.4); MONO % 3.3 %; NEUT % 39.1 %; SMUDGE CELLS PRESENT
[2016-11-19] MEDS: BOOST VANILLA PUDDING CUP PO SCH ×3 (07:54→18:30)
[2016-11-19] MEDS: LACTOBACILLUS ACIDOPHILUS 1 GM PACK PO SCH ×3 (07:56→18:30)
[2016-11-19] MEDS: DOCUSATE SODIUM/SENNA 50/8.6MG TAB PO SCH (07:56)
[2016-11-19] MEDS: CARVEDILOL 6.25 MG TAB PO SCH ×2 (08:08→20:06)
[2016-11-19] MEDS: MAGNESIUM OXIDE 400 MG TAB PO SCH (08:09)
[2016-11-19] MEDS: ASPIRIN 81 MG ECTAB PO SCH (08:09)
[2016-11-19] MEDS: PHENYTOIN SODIUM ER 30 MG CAP PO SCH (08:09)
[2016-11-19] MEDS: SIMVASTATIN 20 MG TAB PO SCH (08:10)
[2016-11-19] MEDS: RANITIDINE HCL 150 MG TAB PO SCH (08:10)
[2016-11-19] MEDS: INSULIN ASPART 100 UNITS/ML 3 ML PEN SC SCH ×4 (08:21→20:17)
[2016-11-19] MEDS: INSULIN DETEMIR FLEXPEN/FLEX TOUCH 100 UNITS/ML 3ML SC SCH ×2 (08:21→20:17)
[2016-11-19] MEDS: METHYLPREDNISOLONE IV 40 MG in SYRINGE 0 ML IV SCH (08:26)
--- NOTE | 2016-11-19 09:48 | Pharmacy Progress Note ---
Glycemic Control: Progress Nt Date of Service Nov 19, 2016. Scope Glycemic Pharmacist consulted by Dr Tinajero on 11/13 for glycemic control and to write orders per [facility] inpatient glycemic control protocol. Objective Accuchecks BSG (last 24hrs): Test 11/18/16 10:57 11/18/16 11:56 11/18/16 16:27 11/18/16 20:48 Bedside Glucose 161 mg/dl (70-90) 241 mg/dl (70-90) 244 mg/dl (70-90) 259 mg/dl (70-90) Test 11/19/16 05:17 11/19/16 07:33 Random Glucose 120 mg/dl (70-99) Bedside Glucose 131 mg/dl (70-90) Laboratory Data (last 24hrs) Test 11/19/16 05:17 Anion Gap 9.0 mmol/L BUN/Creatinine Ratio 42.1 Blood Urea Nitrogen 59 mg/dl Creatinine 1.40 mg/dl Potassium Level 3.8 mmol/L Sodium Level 145 mmol/L White Blood Count 27.31 K/uL Red Blood Count 3.15 M/uL Hemoglobin 10.8 g/dL Hematocrit 33.4 % Mean Corpuscular Volume 106.0 fL Mean Corpuscular Hemoglobin 34.3 pg Mean Corpuscular Hemoglobin Concent 32.3 g/dl Platelet Count 199 K/uL Mean Platelet Volume 9.9 fL Neutrophils (%) (Auto) 39.1 % Lymphocytes (%) (Auto) 46.8 % Monocytes (%) (Auto) 3.3 % Eosinophils (%) (Auto) 2.1 % Basophils (%) (Auto) 0.8 % Neutrophils # (Auto) 10.71 K/uL Lymphocytes # (Auto) 12.77 K/uL Monocytes # (Auto) 0.91 K/uL Eosinophils # (Auto) 0.56 K/uL Basophils # (Auto) 0.21 K/uL Recent Pertinent Medications Outpatient Anti-diabetic Regimen: * Levemir 20 units BID * Novolog 30 units w/ breakfast + 45 units w/ lunch and dinner * Plus additional Novolog scale for high BSGs >350 mg/dL * HbA1c 6.1% on 10/15/16 The patient is currently receiving: * Basal insulin: Levemir 20 units every 12 hours (give 10 units if BSG <120 mg/dL) * Correctional Insulin: Novolog Correction per scale ACHS + 0200 Goal Range: Low 120 mg/dL - High 150 mg/dL Correction Factor: 10 mg/dL/unit * Prandial insulin: Per carb ratio of 1 unit per 2.5 grams CHO consumed Risk Factors for Insulin Resistance: * Steroids: Solumedrol 40 mg IV every 12 hours * Diet: T2DM Assessment & Plan ASSESSMENT: * ADA & AACE recommend a goal blood sugar range 140-180 mg/dl for the majority of critically ill & non-critically ill patients. However, more stringent targets may be selected in individual cases. 11/18/16 * She has received ~132 units of insulin over the last 24 hours and BSGs range 164-289 mg/dL * I have continued to tighten Novolog daily but not aggressively enough * Fasting BSG this AM 101 mg/dL- 12 units of basal insulin given instead of 25 units * Since all prandial BSGs elevated yesterday, continue to tighten carb ratio * She did not eat very many carbs for breakfast or lunch so it should be interesting to see what these changes will do once her appetite is more stable * Since Fasting below goal range, decrease back to home Levemir dosing and reassess in the AM * Patient did not require insulin with overnight check- d/c additional check 11/19/16 * BSG's continued to trend up yesterday despite tightening of carb ratio. * CHO intake variable (ranging 8-60 g consumed yesterday, only 7 g at breakfast today) but persistent trend up in BSG nonetheless * Will further tighten carb ratio. This will likely need to be significantly loosened if/when steroids tapered * AM fasting BSG 131 mg/dL - no change to Levemir (ordered at home dose) PLAN FOR INPATIENT GLYCEMIC CONTROL: * Basal insulin with LEVEMIR 20 units SQ BID - 1/2 dose for BSG < 120 mg/dL * Correctional Insulin with NOVOLOG per scale ACHS or Q6hrs while NPO * Goal Range: Low 120 mg/dL - High 150 mg/dL * Correction Factor: 10 mg/dL/unit * Tighten Nutritional / Prandial insulin per carb ratio of 1 unit per 2 grams CHO consumed * Please note that the plan above was derived based on current level of insulin resistance and hospital stress. These recommendations are appropriate for inpatient admission only. Plan of care upon discharge will need to be reassessed to avoid potential outpatient hypo/hyperglycemia. Thank you.
[2016-11-19 10:08] LABS: LEGIONELLA ANTIGEN NOT DETECTED
[2016-11-19] MEDS: FUROSEMIDE INJ 100 MG in DEXTROSE 5% 100ML 90 ML IV SCH (12:10)
--- NOTE | 2016-11-19 12:50 | Progress Note ---
Post ICU Progress Note Date & Time Nov 19, 2016 at 12:26 Vital Signs Vital Signs Past 12 Hours Date Time Temp Pulse Resp B/P Pulse Ox O2 Delivery O2 Flow Rate FiO2 11/19/16 11:22 36.5 67 18 143/79 96 Nasal Cannula 4.0 11/19/16 11:06 87 20 99 Nasal Cannula 3.0 11/19/16 08:00 Nasal Cannula 2.0 11/19/16 07:52 36.8 67 18 152/73 97 BiPAP 40 11/19/16 07:20 67 99 40 11/19/16 07:20 67 20 99 BiPAP/CPAP 40 11/19/16 04:00 BiPAP 11/19/16 04:00 36.8 69 18 141/78 97 BiPAP Notes Mental Status: alert / awake (ongoing dementia) Nausea / Vomiting: adequately controlled Pain: adequately controlled Airway Patency, RR, SpO2: stable & adequate BP & HR: stable & adequate Patient admitted with aspiration pneumonia from a [facility]. She has been treated for HCAP and is currently day 04/09 for abx. She was transferred from the ICU to room 276 where she is seen at the bedside. She is currently being fed by an aide and has no evidence of aspiration with pureed food and liquids with ThickenUp. She is a brittle diabetic and has a HgB A1c of 12.2 on 11/12/16. A glycemic consult was placed and sugars are being managed by the pharmacy. Random glucose this morning was 120. Sodium is high normal but seems to be stable. She is currently off all diuretics. Cumulative fluid balance is currently negative [id number]. Urine output is adequate via hamlin catheter. Discussed status with granddaughter. Patient appears to be at baseline regarding dementia. It should be noted that the patient continues to refuse BiPAP - continue to encourage use. Serum Co2 trending down slow;y - now at 36 Reviewed progress notes, labs, and inpatient medication list Continue current management Additional recommendations: Continue to titrate steroids. Follow renal function as there was a slight bump to 1.4 Critical care medicine will sign off at this time. Please refer to Dr. Mcleod' s addendum for further recommendations. Please feel free to reconsult as needed. Thank you for including us in the care of this patient Consults & Procedures Consultants: None Procedures: None
--- NOTE | 2016-11-19 16:54 | Progress Note ---
Subjective Date of Service: Nov 19, 2016. Subjective Pt evaluation today including: conversation w/ patient, conversation w/ family , physical exam, chart review, lab review, review of inpatient medication list Voiding: no voiding problems Problem List Medical Problems: (1) Aspiration into airway Status: Acute (2) Congestive heart failure Status: Acute (3) Congestive heart failure Status: Acute (4) Elevated troponin I level Status: Acute (5) Hyperkalemia Status: Acute (6) Pneumonia Status: Acute Review of Systems Constitutional: No chills, No fatigue, No fever, No problem reported, No see HPI, No sweats, No weakness, No weight loss Eyes: No diplopia, No discharge, No eye pain, No problem reported, No redness, No see HPI, No worsening of vision ENT: No dental problems, No hearing loss, No nasal symptoms, No problem reported, No see HPI, No sore throat, No tinnitus, No trouble swallowing, No unusual epistaxis Respiratory: No cough, No dyspnea at rest, No dyspnea on exertion, No hemoptysis, No problem reported, No see HPI, No shortness of breath, No sputum, No wheezing Cardiac: No PND, No chest pain, No claudication, No edema, No orthopnea, No palpitations, No problem reported, No see HPI Abdomen: No GI bleeding, No constipation, No diarrhea, No nausea, No pain, No problem reported, No see HPI, No vomiting Musculoskeletal: No calf pain, No joint pain, No muscle pain, No problem reported, No see HPI, No swelling Female : No abnormal vaginal bleeding, No dysuria, No hematuria, No incontinence, No problem reported, No see HPI, No urinary frequency, No vaginal discharge Neurologic: No balance problems, No memory loss, No numbness/tingling, No paralysis, No problem reported, No see HPI, No vertigo, No weakness Heme: No abnormal bleeding/bruising, No clotting problems, No night sweats, No problem reported, No see HPI, No swollen lymph nodes Endo: No excessive thirst, No excessive urination, No fatigue, No problem reported, No see HPI Skin: No bleeding, No color change, No itch, No new/changing skin lesions, No problem reported, No rash, No see HPI Medications Current Inpatient Medications Medications (Trade) Dose Ordered Sig/Margot Route Start Time Stop Time Status Last Admin Dose Admin Acetaminophen (Tylenol Tab) 650 mg Q4H PRN PO 11/12/16 11:45 12/12/16 11:44 Al Hydrox/Mg Hydrox/Simethicone (Maalox Max Susp) 15 ml Q4H PRN PO 11/12/16 11:45 12/12/16 11:44 Magnesium Hydroxide (Milk Of Magnesia Susp) 30 ml Q12H PRN PO 11/12/16 11:45 12/12/16 11:44 Ondansetron HCl (Zofran Inj) 4 mg Q6H PRN IV 11/12/16 11:45 12/12/16 11:44 Nitroglycerin (Nitrostat Tab) 0.4 mg UD PRN SL 11/12/16 11:45 12/12/16 11:44 Polyethylene (Miralax Powder Packet) 17 gm DAILY PRN PO 11/12/16 13:30 12/12/16 13:29 Magnesium Oxide (Mag-Ox Tab) 400 mg QAM PO 11/13/16 09:00 12/13/16 08:59 11/19/16 08:09 400 MG Senna/Docusate Sodium (Senokot S Tab) 1 tab DAILY PO 11/13/16 09:00 12/13/16 08:59 11/18/16 08:52 1 TAB Hydralazine HCl (HydrALAZINE INJ) 10 mg Q6H PRN IV. 11/12/16 11:45 12/12/16 11:44 Albuterol/ Ipratropium (Duoneb) 3 ml QIDR INH 11/12/16 16:00 12/12/16 15:59 11/19/16 15:33 3 ML Glucose (Glucose 40% Gel) 15-30 GRAMS 15 GRAMS... UD PRN PO 11/12/16 14:00 12/12/16 13:59 Glucose (Glucose Chew Tab) 4-8 Tablets 4 Tabl... UD PRN PO 11/12/16 14:00 12/12/16 13:59 Dextrose (Dextrose 50% 50ML Syringe) 25-50ML OF 50% DW IV FOR... UD PRN IV 11/12/16 14:00 12/12/16 13:59 Glucagon (Glucagon Inj) 1 mg UD PRN SQ 11/12/16 14:00 12/12/16 13:59 Miscellaneous Information (Consult Glycemic Management Pharmacy) 1 ea UD PRN N/A 11/13/16 07:00 12/13/16 06:59 Aspirin (Ecotrin Tab) 81 mg QAM PO 11/14/16 09:00 12/14/16 08:59 11/19/16 08:09 81 MG Carvedilol (Coreg Tab) 6.25 mg BID PO 11/14/16 09:00 12/14/16 08:59 11/19/16 08:08 6.25 MG Simvastatin (Zocor Tab) 20 mg QAM PO 11/14/16 09:00 12/14/16 08:59 11/19/16 08:10 20 MG Ranitidine HCl (zANTac TAB) 150 mg QAM PO 11/15/16 09:00 12/15/16 08:59 11/19/16 08:10 150 MG Phenytoin Sodium (Dilantin Er Cap) 60 mg QAM PO 11/15/16 09:00 12/15/16 08:59 11/19/16 08:09 60 MG Phenytoin Sodium (Dilantin Er Cap) 100 mg QPM PO 11/15/16 21:00 12/15/16 20:59 11/18/16 21:27 100 MG Enteral Nutritional Formula (Boost Pudding) 1 cup TIDM PO 11/14/16 16:30 12/14/16 16:29 11/18/16 16:30 1 CUP Insulin Detemir (Levemir Flexpen/ FlexTouch) BID SC 11/14/16 21:00 12/14/16 20:59 11/19/16 08:21 20 UNIT Bisacodyl (Dulcolax Supp) 10 mg DAILY PRN DE 11/15/16 11:00 12/15/16 10:59 Heparin Sodium (Porcine) (Heparin Sq 5000 Unit/0.5ml) 5,000 unit Q8@0600,1400,2200 SQ 11/15/16 15:00 12/15/16 14:59 11/19/16 13:10 5,000 UNIT Insulin Aspart (novoLOG ASPART) SLIDING SCALE G... ACHS SC 11/15/16 16:00 12/15/16 15:59 2/16/17 13:09 19 UNITS Lactobacillus Acidophilus (Lactinex Granules Pack) 1 gm TIDM PO 11/16/16 11:30 12/16/16 11:29 11/19/16 12:10 1 GM Heparin Sodium (Porcine) 5 ml 5 ml PRN PRN FLUSH 11/19/16 06:15 12/19/16 06:14 Furosemide 20 mg/ Syringe 2 ml @ 4 mls/min BID17 IV 11/19/16 17:00 12/19/16 16:59 Methylprednisolone Sodium Succinate/ Syringe (Solu-Medrol IV/ Syringe) 0.64 ml @ 1.5 mls/min Q12H IV 11/19/16 20:00 12/19/16 19:59 Objective Vital Signs Date Time Temp Pulse Resp B/P Pulse Ox O2 Delivery O2 Flow Rate FiO2 11/19/16 15:33 72 20 97 Nasal Cannula 3.0 11/19/16 12:00 Nasal Cannula 2.0 11/19/16 11:22 36.5 67 18 143/79 96 Nasal Cannula 4.0 11/19/16 11:06 87 20 99 Nasal Cannula 3.0 11/19/16 08:00 Nasal Cannula 2.0 11/19/16 07:52 36.8 67 18 152/73 97 BiPAP 40 11/19/16 07:20 67 99 40 11/19/16 07:20 67 20 99 BiPAP/CPAP 40 11/19/16 04:00 BiPAP 11/19/16 04:00 36.8 69 18 141/78 97 BiPAP 11/19/16 00:08 36.3 69 20 128/69 95 BiPAP 11/19/16 00:00 BiPAP 11/18/16 22:01 68 98 40 11/18/16 21:25 74 132/79 95 Nasal Cannula 2.0 11/18/16 20:00 94 Nasal Cannula 2.0 11/18/16 18:12 36.4 67 18 132/81 98 Nasal Cannula 2.0 11/18/16 17:26 36.9 62 18 94 2.0 Physical Exam General Appearance: WD/WN, no apparent distress Eyes: normal inspection, PERRL, EOMI ENT: normal ENT inspection, hearing grossly normal, TMs normal, pharynx normal Neck: supple, no adenopathy, thyroid normal, no JVD Respiratory/Chest: chest non-tender, lungs clear, normal breath sounds, no respiratory distress, no accessory muscle use Cardiovascular: regular rate, rhythm, no edema, no gallop, no JVD, no murmur Abdomen: normal bowel sounds, non tender, soft, no organomegaly Extremities: normal range of motion, non-tender, normal inspection, no pedal edema Neurologic/Psychiatric: 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 II-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 nml as tested, no motor/sensory deficits, alert, normal mood/affect, oriented x 3 Skin: normal color, warm/dry, no rash Laboratory Results Last 24 Hours Test 11/18/16 20:48 11/19/16 05:17 11/19/16 07:33 11/19/16 11:40 Bedside Glucose 259 mg/dl 131 mg/dl 161 mg/dl White Blood Count 27.31 K/uL Red Blood Count 3.15 M/uL Hemoglobin 10.8 g/dL Hematocrit 33.4 % Mean Corpuscular Volume 106.0 fL Mean Corpuscular Hemoglobin 34.3 pg Mean Corpuscular Hemoglobin Concent 32.3 g/dl Platelet Count 199 K/uL Mean Platelet Volume 9.9 fL Neutrophils (%) (Auto) 39.1 % Lymphocytes (%) (Auto) 46.8 % Monocytes (%) (Auto) 3.3 % Eosinophils (%) (Auto) 2.1 % Basophils (%) (Auto) 0.8 % Neutrophils # (Auto) 10.71 K/uL Lymphocytes # (Auto) 12.77 K/uL Monocytes # (Auto) 0.91 K/uL Eosinophils # (Auto) 0.56 K/uL Basophils # (Auto) 0.21 K/uL RDW Standard Deviation 52.3 fL RDW Coefficient of Variation 13.6 % Immature Granulocyte % (Auto) 7.9 % Immature Granulocyte # (Auto) 2.15 K/uL Nucleated RBC Absolute Count (auto) 0.05 K/uL Nucleated Red Blood Cells % 0.2 % Smudge Cells PRESENT Sodium Level 145 mmol/L Potassium Level 3.8 mmol/L Chloride Level 100 mmol/L Carbon Dioxide Level 36 mmol/L Anion Gap 9.0 mmol/L Blood Urea Nitrogen 59 mg/dl Creatinine 1.40 mg/dl Est Creatinine Clear Calc Drug Dose 32.7 ml/min Estimated GFR () 40.2 Estimated GFR (Non- 34.7 BUN/Creatinine Ratio 42.1 Random Glucose 120 mg/dl Calcium Level 8.4 mg/dl Phosphorus Level 2.9 mg/dl Magnesium Level 2.2 mg/dl Total Bilirubin 0.3 mg/dl Aspartate Amino Transf (AST/SGOT) 30 U/L Alanine Aminotransferase (ALT/SGPT) 24 U/L Alkaline Phosphatase 85 U/L Total Protein 6.0 gm/dl Albumin 2.2 gm/dl Globulin 3.8 gm/dl Albumin/Globulin Ratio 0.6 Assessment and Plan 81 y/o female, with PMHx of systolic CHF, b-cell lymphoma,dementia, CVA, HTN, DM , hyperlipidemia, and seizure disorder, who presented to the ED from [facility] because of acute respiratory failure. Acute hypoxic respiratory failure secondary to below HCAP w sepsis POA negative rapid strept and sputum Cx off zosyn/levofloxacin day 04/09, will monitor off Abx procalcitonin is > 1 acute on chronic Systolic CHF POA DC low dose lasix drip 3ml/hr , start lasix IV from tomorrow afternoon I/Os continue prn BIPAP continue holding lisinopril to make room for lasix and to avoid nephrotoxicity , may be will start tomorrow continue coreg COPD exacerbation titrate steroids down continue bronchodilators Elevated troponin, likely secondary to severe demand ischemia: - echo fortunately unchanged, troponins without further elevation possible aspiration/dysphagia speech eval appreciated - continue modified diet one to one feeding Hypernatremia S/P Diamox 500mg and Diuril 500mg IV once to potentiate hyponatremia s/p D5W at 30cc/hour over night hypernatremia resolved, D5 was stopped will monitor sodium level CKD stage II appears to be at base line Hyperkalemia: - improving T2DM: - Pharmacy consulted for glycemic management Seizure disorder: - Continue Phenytoin - Checked Phenytoin level= 10.8 HTN: - Hold Cozaar 100 mg PO daily due to DEJUAN and to make room for lasix drip - Hydralazine 10 mg IV PRN q6hrs for SBP >170, DBP >100 and HR <70 + IV Lopressor 5 mg q6 hrs -continue coreg Hyperlipidemia: - Hold Zocor 20 mg PO daily. Start Atorvastatin 40 mg PO daily GI Prophylaxis: - IV Pepcid - Maalox PRN - IV Zofran PRN - Colace and/or Milk of Mag PRN DVT prophylaxis: - Heparin 5000 units SQ q12 hrs - CANDACE and SCDs Dispo: - Resident of [facility]
[2016-11-19] MEDS: FUROSEMIDE INJ 20 MG in SYRINGE 0 ML IV SCH (17:00)
[2016-11-19] MEDS ORDERED: METHYLPREDNISOLONE IV 40 MG in SYRINGE 0 ML IV SCH (20:00)
[2016-11-19] MEDS: PHENYTOIN SODIUM ER 100 MG CAP PO SCH (20:06)
[2016-11-20] VITALS (13 sets, daily range): BP systolic 120–153; BP diastolic 72–83; PULSE 55–69; TEMP 36.4–36.7; O2SAT 94–100; Ht 149.9 cm; Wt 102.2 kg
[2016-11-20 06:02] LABS: HEMATOCRIT 31.1 % (37-47); MEAN CELL VOLUME 103.7 fL (80-100); MEAN CORPUSCULAR HGB CONC 32.8 g/dl (32-36); MEAN PLATELET VOLUME 9.4 fL (7.4-10.4); PLATELET COUNT 176 K/uL (130-400); WHITE BLOOD COUNT 22.75 K/uL (4.8-10.8)
[2016-11-20] MEDS: HEPARIN SOD 5000 UNIT/0.5 ML CARP SQ SCH ×3 (06:02→21:07)
[2016-11-20] MEDS: INSULIN ASPART 100 UNITS/ML 3 ML PEN SC SCH ×4 (06:30→21:07)
[2016-11-20 06:33] LABS: BUN/CREATININE RATIO 51.1 (10-20); CALCIUM 8.2 mg/dl (8.5-10.1); CREATININE 1.1 mg/dl (0.60-1.20); MAGNESIUM 2.3 mg/dl (1.8-2.4); POTASSIUM 3.1 mmol/L (3.5-5.1)
[2016-11-20 06:36] LABS: ALB/GLOB RATIO 0.6 (0.9-2); PHOSPHORUS 2.8 mg/dl (2.5-4.9)
[2016-11-20] MEDS: ALBUT/IPRATROP 3MG/0.5MG NEB 3 ML VIAL INH SCH ×4 (07:11→19:21)
[2016-11-20] MEDS: LACTOBACILLUS ACIDOPHILUS 1 GM PACK PO SCH ×3 (07:49→17:29)
[2016-11-20] MEDS: BOOST VANILLA PUDDING CUP PO SCH ×3 (07:49→17:00)
[2016-11-20 08:16] LABS: BASO % 0.5 %; BASO ABS # 0.12 K/uL (0-0.2); COMPLETE YES; IG% 7.2 %; LYMPH % 52.7 %; MONO % 3.7 %; NEUT % 32.9 %; SMUDGE CELLS PRESENT
[2016-11-20] MEDS: RANITIDINE HCL 150 MG TAB PO SCH (08:44)
[2016-11-20] MEDS: PHENYTOIN SODIUM ER 30 MG CAP PO SCH (08:44)
[2016-11-20] MEDS: DOCUSATE SODIUM/SENNA 50/8.6MG TAB PO SCH (08:44)
[2016-11-20] MEDS: SIMVASTATIN 20 MG TAB PO SCH (08:44)
[2016-11-20] MEDS: ASPIRIN 81 MG ECTAB PO SCH (08:45)
[2016-11-20] MEDS: MAGNESIUM OXIDE 400 MG TAB PO SCH (08:45)
[2016-11-20] MEDS: FUROSEMIDE INJ 20 MG in SYRINGE 0 ML IV SCH ×2 (08:45→17:29)
[2016-11-20] MEDS: CARVEDILOL 6.25 MG TAB PO SCH ×2 (08:46→21:04)
[2016-11-20] MEDS ORDERED: FUROSEMIDE INJ 20 MG in SYRINGE 0 ML IV SCH ×2 (09:00→09:35)
[2016-11-20] MEDS ORDERED: POTASSIUM CHLORIDE 10 MEQ TABCR PO STA (09:07)
[2016-11-20] MEDS: INSULIN DETEMIR FLEXPEN/FLEX TOUCH 100 UNITS/ML 3ML SC SCH ×2 (09:37→21:07)
--- NOTE | 2016-11-20 11:28 | Pharmacy Progress Note ---
Glycemic Control: Progress Nt Date of Service Nov 20, 2016. Scope Glycemic Pharmacist consulted for glycemic control and to write orders per [facility] inpatient glycemic control protocol. Objective Accuchecks BSG (last 24hrs): Test 11/19/16 11:40 11/19/16 16:22 11/19/16 20:11 11/20/16 05:48 Bedside Glucose 161 mg/dl (70-90) 269 mg/dl (70-90) 236 mg/dl (70-90) Random Glucose 57 mg/dl (70-99) Test 11/20/16 06:45 11/20/16 07:20 Bedside Glucose 80 mg/dl (70-90) 71 mg/dl (70-90) Laboratory Data (last 24hrs) Test 11/20/16 05:48 Anion Gap 7.0 mmol/L BUN/Creatinine Ratio 51.1 Blood Urea Nitrogen 56 mg/dl Creatinine 1.10 mg/dl Potassium Level 3.1 mmol/L Sodium Level 143 mmol/L White Blood Count 22.75 K/uL Red Blood Count 3.00 M/uL Hemoglobin 10.2 g/dL Hematocrit 31.1 % Mean Corpuscular Volume 103.7 fL Mean Corpuscular Hemoglobin 34.0 pg Mean Corpuscular Hemoglobin Concent 32.8 g/dl Platelet Count 176 K/uL Mean Platelet Volume 9.4 fL Neutrophils (%) (Auto) 32.9 % Lymphocytes (%) (Auto) 52.7 % Monocytes (%) (Auto) 3.7 % Eosinophils (%) (Auto) 3.0 % Basophils (%) (Auto) 0.5 % Neutrophils # (Auto) 7.46 K/uL Lymphocytes # (Auto) 12.00 K/uL Monocytes # (Auto) 0.85 K/uL Eosinophils # (Auto) 0.69 K/uL Basophils # (Auto) 0.12 K/uL HbA1c: 6.1% on 10/15/16 Recent Pertinent Medications Outpatient Anti-diabetic Regimen: * Levemir 20 units BID * Novolog 30 units w/ breakfast + 45 units w/ lunch and dinner * Plus additional Novolog scale for high BSGs >350 mg/dL The patient is currently receiving: * Basal insulin: Levemir 20 units every 12 hours (give 10 units if BSG <120 mg/dL) * Correctional Insulin: Novolog Correction per scale ACHS Goal Range: Low 120 mg/dL - High 150 mg/dL Correction Factor: 10 mg/dL/unit * Prandial insulin: Per carb ratio of 1 unit per 2 grams CHO consumed Risk Factors for Insulin Resistance: * Steroids: Solumedrol 40 mg IV every 12 hours d/c yesterday after AM dose, tapered to prednisone 20 mg daily * Diet: T2DM/low Na Assessment & Plan ASSESSMENT: * ADA & AACE recommend a goal blood sugar range 140-180 mg/dl for the majority of critically ill & non-critically ill patients. However, more stringent targets may be selected in individual cases. 11/19/16 * BSG's continued to trend up yesterday despite tightening of carb ratio. * CHO intake variable (ranging 8-60 g consumed yesterday, only 7 g at breakfast today) but persistent trend up in BSG nonetheless * Will further tighten carb ratio. This will likely need to be significantly loosened if/when steroids tapered * AM fasting BSG 131 mg/dL - no change to Levemir (ordered at home dose) 11/20/16 * BSG decreased to 80 mg/dL this AM 2nd steroids tapered yesterday. Now on prednisone 20 mg daily. * On previous admission when patient was not on steroids, was receiving Levemir 15 units BID, Novolog correction factor 20 mg/dL/unit and carb ratio 1 unit per 7 g CHO. Will resume similar with very slightly more aggressive Levemir and carb ratio as patient is still on steroids now (albeit oral). PLAN FOR INPATIENT GLYCEMIC CONTROL: * Decrease basal insulin with LEVEMIR SQ BID based on BSG 10 units for BSG < 100 mg/dL 16 units for BSG 100-180 mg/dL 22 units for BSG greater than 180 mg/dL * Correctional Insulin with NOVOLOG per scale ACHS or Q6hrs while NPO * Increase Goal Range: Low 120 mg/dL - High 160 mg/dL * Loosen Correction Factor: 20 mg/dL/unit * Loosen Nutritional / Prandial insulin per carb ratio of 1 unit per 6 grams CHO consumed * Please note that the plan above was derived based on current level of insulin resistance and hospital stress. These recommendations are appropriate for inpatient admission only. Plan of care upon discharge will need to be reassessed to avoid potential outpatient hypo/hyperglycemia. Thank you.
--- NOTE | 2016-11-20 19:52 | Progress Note ---
Subjective Date of Service: Nov 20, 2016. Subjective Pt evaluation today including: conversation w/ patient, conversation w/ family , physical exam, lab review, review of inpatient medication list Problem List Medical Problems: (1) Aspiration into airway Status: Acute (2) Congestive heart failure Status: Acute (3) Congestive heart failure Status: Acute (4) Elevated troponin I level Status: Acute (5) Hyperkalemia Status: Acute (6) Pneumonia Status: Acute Review of Systems Constitutional: No chills, No fatigue, No fever, No problem reported, No see HPI, No sweats, No weakness, No weight loss Eyes: No diplopia, No discharge, No eye pain, No problem reported, No redness, No see HPI, No worsening of vision ENT: No dental problems, No hearing loss, No nasal symptoms, No problem reported, No see HPI, No sore throat, No tinnitus, No trouble swallowing, No unusual epistaxis Respiratory: No cough, No dyspnea at rest, No dyspnea on exertion, No hemoptysis, No problem reported, No see HPI, No shortness of breath, No sputum, No wheezing Cardiac: No PND, No chest pain, No claudication, No edema, No orthopnea, No palpitations, No problem reported, No see HPI Abdomen: No GI bleeding, No constipation, No diarrhea, No nausea, No pain, No problem reported, No see HPI, No vomiting Musculoskeletal: No calf pain, No joint pain, No muscle pain, No problem reported, No see HPI, No swelling Neurologic: No balance problems, No memory loss, No numbness/tingling, No paralysis, No problem reported, No see HPI, No vertigo, No weakness Psychiatric: No anhedonism, No anxiety, No depression symptoms, No insomnia, No problem reported, No see HPI, No substance abuse Heme: No abnormal bleeding/bruising, No clotting problems, No night sweats, No problem reported, No see HPI, No swollen lymph nodes Endo: No excessive thirst, No excessive urination, No fatigue, No problem reported, No see HPI Skin: No bleeding, No color change, No itch, No new/changing skin lesions, No problem reported, No rash, No see HPI Objective Vital Signs Date Time Temp Pulse Resp B/P Pulse Ox O2 Delivery O2 Flow Rate FiO2 11/20/16 19:21 67 18 97 Nasal Cannula 3.0 11/20/16 16:07 36.7 68 20 120/74 98 Nasal Cannula 3.0 11/20/16 16:00 98 Nasal Cannula 3.0 40 11/20/16 15:59 69 12 100 Nasal Cannula 2.0 11/20/16 11:54 98 BiPAP 3.0 40 11/20/16 11:13 63 12 100 Nasal Cannula 2.0 11/20/16 11:04 36.6 67 20 143/83 100 Nasal Cannula 2.0 11/20/16 08:00 98 BiPAP 3.0 40 11/20/16 07:17 36.5 55 20 153/78 98 BiPAP 11/20/16 07:11 57 20 97 BiPAP/CPAP 40 11/20/16 07:11 57 97 40 11/20/16 04:44 36.7 59 20 144/78 94 BiPAP 11/20/16 04:00 BiPAP 11/20/16 00:00 BiPAP 11/19/16 23:57 36.8 64 18 136/66 97 CPAP 11/19/16 22:19 68 97 40 11/19/16 20:00 95 Nasal Cannula 3.0 11/19/16 19:53 82 20 96 Nasal Cannula 4.0 Physical Exam General Appearance: WD/WN, no apparent distress Eyes: normal inspection, EOMI ENT: normal ENT inspection, hearing grossly normal Neck: supple Respiratory/Chest: chest non-tender, lungs clear, normal breath sounds, no respiratory distress Cardiovascular: regular rate, rhythm, no edema, no gallop, no JVD Abdomen: normal bowel sounds, non tender, soft Extremities: normal range of motion, non-tender, normal inspection, no pedal edema Neurologic/Psychiatric: dining room attendant II-XII nml as tested, no motor/sensory deficits, alert, normal mood/affect, + pertinent finding (slightly confused as base line) Skin: normal color, warm/dry, no rash Laboratory Results Last 24 Hours Test 11/19/16 20:11 11/20/16 05:48 11/20/16 06:45 11/20/16 07:20 Bedside Glucose 236 mg/dl 80 mg/dl 71 mg/dl White Blood Count 22.75 K/uL Red Blood Count 3.00 M/uL Hemoglobin 10.2 g/dL Hematocrit 31.1 % Mean Corpuscular Volume 103.7 fL Mean Corpuscular Hemoglobin 34.0 pg Mean Corpuscular Hemoglobin Concent 32.8 g/dl Platelet Count 176 K/uL Mean Platelet Volume 9.4 fL Neutrophils (%) (Auto) 32.9 % Lymphocytes (%) (Auto) 52.7 % Monocytes (%) (Auto) 3.7 % Eosinophils (%) (Auto) 3.0 % Basophils (%) (Auto) 0.5 % Neutrophils # (Auto) 7.46 K/uL Lymphocytes # (Auto) 12.00 K/uL Monocytes # (Auto) 0.85 K/uL Eosinophils # (Auto) 0.69 K/uL Basophils # (Auto) 0.12 K/uL RDW Standard Deviation 51.2 fL RDW Coefficient of Variation 13.8 % Immature Granulocyte % (Auto) 7.2 % Immature Granulocyte # (Auto) 1.63 K/uL Nucleated RBC Absolute Count (auto) 0.07 K/uL Nucleated Red Blood Cells % 0.3 % Smudge Cells PRESENT Sodium Level 143 mmol/L Potassium Level 3.1 mmol/L Chloride Level 100 mmol/L Carbon Dioxide Level 36 mmol/L Anion Gap 7.0 mmol/L Blood Urea Nitrogen 56 mg/dl Creatinine 1.10 mg/dl Est Creatinine Clear Calc Drug Dose 42.5 ml/min Estimated GFR () 53.8 Estimated GFR (Non- 46.4 BUN/Creatinine Ratio 51.1 Random Glucose 57 mg/dl Calcium Level 8.2 mg/dl Phosphorus Level 2.8 mg/dl Magnesium Level 2.3 mg/dl Total Bilirubin 0.3 mg/dl Aspartate Amino Transf (AST/SGOT) 24 U/L Alanine Aminotransferase (ALT/SGPT) 20 U/L Alkaline Phosphatase 85 U/L Total Protein 5.7 gm/dl Albumin 2.2 gm/dl Globulin 3.5 gm/dl Albumin/Globulin Ratio 0.6 Test 11/20/16 11:49 11/20/16 16:28 Bedside Glucose 123 mg/dl 198 mg/dl Assessment and Plan 81 y/o female, with PMHx of systolic CHF, b-cell lymphoma,dementia, CVA, HTN, DM , hyperlipidemia, and seizure disorder, who presented to the ED from [facility] because of acute respiratory failure. Acute hypoxic respiratory failure secondary to below HCAP w sepsis POA negative rapid strept and sputum Cx off zosyn/levofloxacin day 04/09, will monitor off Abx procalcitonin is > 1 acute on chronic Systolic CHF POA DC low dose lasix drip 3ml/hr ,continue lasix 20mg IV I/Os continue prn BIPAP continue holding lisinopril to make room for lasix and to avoid nephrotoxicity , may be will start tomorrow continue coreg COPD exacerbation titrate steroids down continue bronchodilators Elevated troponin, likely secondary to severe demand ischemia: - echo fortunately unchanged, troponins without further elevation possible aspiration/dysphagia speech eval appreciated - continue modified diet one to one feeding Hypernatremia S/P Diamox 500mg and Diuril 500mg IV once to potentiate hyponatremia s/p D5W at 30cc/hour over night hypernatremia resolved, D5 was stopped will continue to monitor sodium level CKD stage II appears to be at base line Hyperkalemia: - improving T2DM: - Pharmacy consulted for glycemic management Seizure disorder: - Continue Phenytoin - Checked Phenytoin level= 10.8 HTN: - Hold Cozaar 100 mg PO daily due to DEJUAN and to make room for lasix drip - Hydralazine 10 mg IV PRN q6hrs for SBP >170, DBP >100 and HR <70 + IV Lopressor 5 mg q6 hrs -continue coreg Hyperlipidemia: - Hold Zocor 20 mg PO daily. Start Atorvastatin 40 mg PO daily GI Prophylaxis: - IV Pepcid - Maalox PRN - IV Zofran PRN - Colace and/or Milk of Mag PRN DVT prophylaxis: - Heparin 5000 units SQ q12 hrs - CANDACE and SCDs Dispo: - Resident of [facility]
[2016-11-20] MEDS: PHENYTOIN SODIUM ER 100 MG CAP PO SCH (21:04)
[2016-11-21] VITALS (12 sets, daily range): BP systolic 114–147; BP diastolic 67–81; PULSE 53–97; TEMP 36.5–37.1; O2SAT 94–99
[2016-11-21 05:58] LABS: HEMATOCRIT 31.5 % (37-47); MEAN CELL VOLUME 106.4 fL (80-100); MEAN CORPUSCULAR HEMOGLOBIN 34.5 pg (25-34); MEAN CORPUSCULAR HGB CONC 32.4 g/dl (32-36); MEAN PLATELET VOLUME 9.7 fL (7.4-10.4); PLATELET COUNT 172 K/uL (130-400); RED BLOOD COUNT 2.96 M/uL (4.2-5.4); WHITE BLOOD COUNT 23.71 K/uL (4.8-10.8)
[2016-11-21] MEDS: HEPARIN SOD 5000 UNIT/0.5 ML CARP SQ SCH ×3 (06:10→20:49)
[2016-11-21 06:50] LABS: ALB/GLOB RATIO 0.6 (0.9-2); BUN/CREATININE RATIO 46.1 (10-20); CALCIUM 8.4 mg/dl (8.5-10.1); CREATININE 1.1 mg/dl (0.60-1.20); MAGNESIUM 2.5 mg/dl (1.8-2.4); PHOSPHORUS 2.5 mg/dl (2.5-4.9); POTASSIUM 3.6 mmol/L (3.5-5.1)
[2016-11-21 07:28] LABS: BASO % 0.6 %; BASO ABS # 0.14 K/uL (0-0.2); COMPLETE YES; EOS % 2.6 %; IG% 4.9 %; LYMPH ABS # 13.28 K/uL (1.2-3.4); MONO % 3.9 %; SMUDGE CELLS PRESENT
[2016-11-21] MEDS: ALBUT/IPRATROP 3MG/0.5MG NEB 3 ML VIAL INH SCH ×4 (07:36→18:59)
[2016-11-21] MEDS: LACTOBACILLUS ACIDOPHILUS 1 GM PACK PO SCH ×3 (08:03→16:59)
[2016-11-21] MEDS: BOOST VANILLA PUDDING CUP PO SCH ×3 (08:03→17:00)
[2016-11-21] MEDS: INSULIN ASPART 100 UNITS/ML 3 ML PEN SC SCH ×4 (08:10→20:50)
[2016-11-21] MEDS: INSULIN DETEMIR FLEXPEN/FLEX TOUCH 100 UNITS/ML 3ML SC SCH ×2 (08:11→20:48)
[2016-11-21] MEDS: RANITIDINE HCL 150 MG TAB PO SCH (09:02)
[2016-11-21] MEDS: PHENYTOIN SODIUM ER 30 MG CAP PO SCH (09:02)
[2016-11-21] MEDS: MAGNESIUM OXIDE 400 MG TAB PO SCH (09:02)
[2016-11-21] MEDS: SIMVASTATIN 20 MG TAB PO SCH (09:02)
[2016-11-21] MEDS: DOCUSATE SODIUM/SENNA 50/8.6MG TAB PO SCH (09:02)
[2016-11-21] MEDS: FUROSEMIDE 40 MG TAB PO SCH ×2 (09:05→17:03)
[2016-11-21] MEDS: METOLAZONE 2.5 MG TAB PO SCH (09:05)
[2016-11-21] MEDS: CARVEDILOL 6.25 MG TAB PO SCH ×2 (09:49→19:39)
[2016-11-21] MEDS: ASPIRIN 81 MG ECTAB PO SCH (09:49)
--- NOTE | 2016-11-21 12:26 | Pharmacy Progress Note ---
Glycemic Control: Progress Nt Date of Service Nov 21, 2016. Scope Glycemic Pharmacist consulted for glycemic control and to write orders per [facility] inpatient glycemic control protocol. Objective Accuchecks BSG (last 24hrs): Test 11/20/16 16:28 11/20/16 20:57 11/21/16 05:44 11/21/16 07:31 Bedside Glucose 198 mg/dl (70-90) 254 mg/dl (70-90) 167 mg/dl (70-90) Random Glucose 165 mg/dl (70-99) Test 11/21/16 11:37 Bedside Glucose 226 mg/dl (70-90) Laboratory Data (last 24hrs) Test 11/21/16 05:44 Anion Gap 9.0 mmol/L BUN/Creatinine Ratio 46.1 Blood Urea Nitrogen 51 mg/dl Creatinine 1.10 mg/dl Potassium Level 3.6 mmol/L Sodium Level 141 mmol/L White Blood Count 23.71 K/uL Red Blood Count 2.96 M/uL Hemoglobin 10.2 g/dL Hematocrit 31.5 % Mean Corpuscular Volume 106.4 fL Mean Corpuscular Hemoglobin 34.5 pg Mean Corpuscular Hemoglobin Concent 32.4 g/dl Platelet Count 172 K/uL Mean Platelet Volume 9.7 fL Neutrophils (%) (Auto) 32.0 % Lymphocytes (%) (Auto) 56.0 % Monocytes (%) (Auto) 3.9 % Eosinophils (%) (Auto) 2.6 % Basophils (%) (Auto) 0.6 % Neutrophils # (Auto) 7.59 K/uL Lymphocytes # (Auto) 13.28 K/uL Monocytes # (Auto) 0.92 K/uL Eosinophils # (Auto) 0.62 K/uL Basophils # (Auto) 0.14 K/uL HbA1c: 6.1% on 10/15/16 Recent Pertinent Medications Outpatient Anti-diabetic Regimen: * Levemir 20 units BID * Novolog 30 units w/ breakfast + 45 units w/ lunch and dinner * Plus additional Novolog scale for high BSGs >350 mg/dL The patient is currently receiving: * Basal insulin: Levemir every 12 hours based on BSG 10 units for BSG < 100 mg/dL 16 units for BSG 100-180 mg/dL 22 units for BSG greater than 180 mg/dL * Correctional Insulin: Novolog Correction per scale ACHS Goal Range: Low 120 mg/dL - High 150 mg/dL Correction Factor: 20 mg/dL/unit * Prandial insulin: Per carb ratio of 1 unit per 6 grams CHO consumed Risk Factors for Insulin Resistance: * Steroids: Solumedrol 40 mg IV every 12 hours d/c 11/19 tapered to prednisone 20 mg daily 11/20 then 10 mg daily today * Diet: T2DM/low Na Assessment & Plan ASSESSMENT: * ADA & AACE recommend a goal blood sugar range 140-180 mg/dl for the majority of critically ill & non-critically ill patients. However, more stringent targets may be selected in individual cases. 11/20/16 * BSG decreased to 80 mg/dL this AM 2nd steroids tapered yesterday. Now on prednisone 20 mg daily. * On previous admission when patient was not on steroids, was receiving Levemir 15 units BID, Novolog correction factor 20 mg/dL/unit and carb ratio 1 unit per 7 g CHO. Will resume similar with very slightly more aggressive Levemir and carb ratio as patient is still on steroids now (albeit oral). 11/21/16 * BSG's ranging 123-254 mg/dL over the last 24 hours. Tightened carb ratio this AM, but then steroids tapered further therefore loosened back to previous. Thus, maintaining current regimen may still cause a decrease in BSG's to goal range * Will very slightly decrease Levemir dose as steroids are being tapered PLAN FOR INPATIENT GLYCEMIC CONTROL: * Decrease basal insulin with LEVEMIR SQ BID based on BSG 6 units for BSG < 100 mg/dL 14 units for BSG 100-180 mg/dL 20 units for BSG greater than 180 mg/dL * Correctional Insulin with NOVOLOG per scale ACHS or Q6hrs while NPO * Goal Range: Low 120 mg/dL - High 150 mg/dL * Correction Factor: 20 mg/dL/unit * Nutritional / Prandial insulin per carb ratio of 1 unit per 6 grams CHO consumed * Please note that the plan above was derived based on current level of insulin resistance and hospital stress. These recommendations are appropriate for inpatient admission only. Plan of care upon discharge will need to be reassessed to avoid potential outpatient hypo/hyperglycemia. Thank you.
--- NOTE | 2016-11-21 14:59 | DIAGNOSTIC IMAGING REPORT ---
CHEST ONE VIEW PORTABLE HISTORY: Short of breath. follow up on CHF/pneumonia COMPARISON: Chest 11/16/2016. FINDINGS: Improved aeration within the bilateral airspace opacities as well as the interstitial thickening. Trace pleural effusions have also improved. No pneumothorax. Right PICC terminates at the superior cavoatrial junction. The heart remains enlarged. IMPRESSION: Improvement in the bilateral airspace opacities versus pulmonary edema. Electronically signed by: Arnie Alonso M.D. 11/21/2016 2:58 PM Dictated Date/Time: 11/21/2016 2:57 PM
--- NOTE | 2016-11-21 19:12 | Progress Note ---
Subjective Date of Service: Nov 21, 2016. Subjective Pt evaluation today including: conversation w/ patient, conversation w/ family , physical exam, lab review, review of inpatient medication list Problem List Medical Problems: (1) Aspiration into airway Status: Acute (2) Congestive heart failure Status: Acute (3) Congestive heart failure Status: Acute (4) Elevated troponin I level Status: Acute (5) Hyperkalemia Status: Acute (6) Pneumonia Status: Acute Review of Systems Constitutional: No chills, No fatigue, No fever, No problem reported, No see HPI, No sweats, No weakness, No weight loss Eyes: No diplopia, No discharge, No eye pain, No problem reported, No redness, No see HPI, No worsening of vision ENT: No dental problems, No hearing loss, No nasal symptoms, No problem reported, No see HPI, No sore throat, No tinnitus, No trouble swallowing, No unusual epistaxis Respiratory: No cough, No dyspnea at rest, No dyspnea on exertion, No hemoptysis, No problem reported, No see HPI, No shortness of breath, No sputum, No wheezing Cardiac: No PND, No chest pain, No claudication, No edema, No orthopnea, No palpitations, No problem reported, No see HPI Breast: No breast lump, No breast pain, No change in shape, No nipple discharge , No problem reported, No see HPI Abdomen: No GI bleeding, No constipation, No diarrhea, No nausea, No pain, No problem reported, No see HPI, No vomiting Musculoskeletal: No calf pain, No joint pain, No muscle pain, No problem reported, No see HPI, No swelling Female : No abnormal vaginal bleeding, No dysuria, No hematuria, No incontinence, No problem reported, No see HPI, No urinary frequency, No vaginal discharge Neurologic: No balance problems, No memory loss, No numbness/tingling, No paralysis, No problem reported, No see HPI, No vertigo, No weakness Psychiatric: No anhedonism, No anxiety, No depression symptoms, No insomnia, No problem reported, No see HPI, No substance abuse Heme: No abnormal bleeding/bruising, No clotting problems, No night sweats, No problem reported, No see HPI, No swollen lymph nodes Endo: No excessive thirst, No excessive urination, No fatigue, No problem reported, No see HPI Skin: No bleeding, No color change, No itch, No new/changing skin lesions, No problem reported, No rash, No see HPI Objective Vital Signs Date Time Temp Pulse Resp B/P Pulse Ox O2 Delivery O2 Flow Rate FiO2 11/21/16 18:59 68 18 99 Nasal Cannula 3.0 11/21/16 15:40 Nasal Cannula 3.0 40 11/21/16 15:34 37.0 60 18 140/81 98 Nasal Cannula 3.0 11/21/16 15:22 59 18 98 Nasal Cannula 3.0 11/21/16 12:00 Nasal Cannula 3.0 40 11/21/16 11:55 36.7 64 18 138/67 97 11/21/16 11:15 63 18 98 Nasal Cannula 97.0 11/21/16 08:30 36.5 97 18 121/71 94 Nasal Cannula 3.0 11/21/16 07:36 70 18 98 Nasal Cannula 3.0 11/21/16 07:30 98 Nasal Cannula 3.0 40 11/21/16 04:00 Nasal Cannula 3.0 11/21/16 04:00 36.8 56 20 124/67 99 BiPAP 11/21/16 00:11 36.9 53 20 114/67 96 CPAP 11/21/16 00:00 Nasal Cannula 3.0 11/20/16 22:22 68 95 40 11/20/16 20:00 Nasal Cannula 3.0 11/20/16 19:58 36.4 66 20 136/72 97 Nasal Cannula 3.0 11/20/16 19:21 67 18 97 Nasal Cannula 3.0 Physical Exam General Appearance: WD/WN, no apparent distress Eyes: normal inspection, EOMI ENT: normal ENT inspection, hearing grossly normal Neck: supple Respiratory/Chest: chest non-tender, lungs clear, normal breath sounds, no respiratory distress, no accessory muscle use Cardiovascular: regular rate, rhythm, no edema, no gallop, no JVD, no murmur Abdomen: normal bowel sounds, non tender, soft Extremities: normal range of motion, non-tender, normal inspection, no pedal edema Neurologic/Psychiatric: creel selector II-XII nml as tested, no motor/sensory deficits, alert, normal mood/affect, oriented x 3 Skin: normal color, warm/dry, no rash Laboratory Results Last 24 Hours Test 11/20/16 20:57 11/21/16 05:44 11/21/16 07:31 11/21/16 11:37 Bedside Glucose 254 mg/dl 167 mg/dl 226 mg/dl White Blood Count 23.71 K/uL Red Blood Count 2.96 M/uL Hemoglobin 10.2 g/dL Hematocrit 31.5 % Mean Corpuscular Volume 106.4 fL Mean Corpuscular Hemoglobin 34.5 pg Mean Corpuscular Hemoglobin Concent 32.4 g/dl Platelet Count 172 K/uL Mean Platelet Volume 9.7 fL Neutrophils (%) (Auto) 32.0 % Lymphocytes (%) (Auto) 56.0 % Monocytes (%) (Auto) 3.9 % Eosinophils (%) (Auto) 2.6 % Basophils (%) (Auto) 0.6 % Neutrophils # (Auto) 7.59 K/uL Lymphocytes # (Auto) 13.28 K/uL Monocytes # (Auto) 0.92 K/uL Eosinophils # (Auto) 0.62 K/uL Basophils # (Auto) 0.14 K/uL RDW Standard Deviation 52.6 fL RDW Coefficient of Variation 13.8 % Immature Granulocyte % (Auto) 4.9 % Immature Granulocyte # (Auto) 1.16 K/uL Nucleated RBC Absolute Count (auto) 0.07 K/uL Nucleated Red Blood Cells % 0.3 % Smudge Cells PRESENT Macrocytosis PRESENT Sodium Level 141 mmol/L Potassium Level 3.6 mmol/L Chloride Level 99 mmol/L Carbon Dioxide Level 33 mmol/L Anion Gap 9.0 mmol/L Blood Urea Nitrogen 51 mg/dl Creatinine 1.10 mg/dl Est Creatinine Clear Calc Drug Dose 42.5 ml/min Estimated GFR () 53.8 Estimated GFR (Non- 46.4 BUN/Creatinine Ratio 46.1 Random Glucose 165 mg/dl Calcium Level 8.4 mg/dl Phosphorus Level 2.5 mg/dl Magnesium Level 2.5 mg/dl Total Bilirubin 0.4 mg/dl Aspartate Amino Transf (AST/SGOT) 25 U/L Alanine Aminotransferase (ALT/SGPT) 19 U/L Alkaline Phosphatase 99 U/L Total Protein 5.9 gm/dl Albumin 2.2 gm/dl Globulin 3.7 gm/dl Albumin/Globulin Ratio 0.6 Test 11/21/16 16:29 Bedside Glucose 319 mg/dl Assessment and Plan 81 y/o female, with PMHx of systolic CHF, b-cell lymphoma,dementia, CVA, HTN, DM , hyperlipidemia, and seizure disorder, who presented to the ED from [facility] because of acute respiratory failure. Acute hypoxic respiratory failure secondary to below HCAP w sepsis POA negative rapid strept and sputum Cx off zosyn/levofloxacin day 04/09, will monitor off Abx procalcitonin is > 1 acute on chronic Systolic CHF POA initially was on low dose lasix drip 3ml/hr ,that was switched to lasix 20mg IV on 11/20, today will switch her to lasix 40mg po BID plus metolazone 2.5 mg every other day, she will need renal function check twice a week for 4 weeks then every 2 weeks I/Os continue prn BIPAP started losartan 25 mg PO daily 11/21 continue coreg COPD exacerbation titrate steroids down continue bronchodilators Elevated troponin, likely secondary to severe demand ischemia: - echo fortunately unchanged, troponins without further elevation possible aspiration/dysphagia speech eval appreciated - continue modified diet one to one feeding Hypernatremia S/P Diamox 500mg and Diuril 500mg IV once to potentiate hyponatremia s/p D5W at 30cc/hour over night hypernatremia resolved, D5 was stopped will continue to monitor sodium level CKD stage II appears to be at base line Hyperkalemia: - improving T2DM: - Pharmacy consulted for glycemic management Seizure disorder: - Continue Phenytoin - Checked Phenytoin level= 10.8 HTN: - started losartan 25 mg PO daily 11/21 - Hydralazine 10 mg IV PRN q6hrs for SBP >170, DBP >100 and HR <70 + IV Lopressor 5 mg q6 hrs -continue coreg Hyperlipidemia: - Hold Zocor 20 mg PO daily. Start Atorvastatin 40 mg PO daily GI Prophylaxis: - IV Pepcid - Maalox PRN - IV Zofran PRN - Colace and/or Milk of Mag PRN DVT prophylaxis: - Heparin 5000 units SQ q12 hrs - CANDACE and SCDs Dispo: - Resident of [facility]
[2016-11-21] MEDS: PHENYTOIN SODIUM ER 100 MG CAP PO SCH (19:38)
[2016-11-22] VITALS (10 sets, daily range): BP systolic 117–151; BP diastolic 62–88; PULSE 58–65; TEMP 36.3–37.1; O2SAT 94–99
[2016-11-22] MEDS: HEPARIN SOD 5000 UNIT/0.5 ML CARP SQ SCH ×3 (05:43→21:30)
[2016-11-22 06:15] LABS: HEMATOCRIT 31.2 % (37-47); MEAN CELL VOLUME 103.3 fL (80-100); MEAN CORPUSCULAR HEMOGLOBIN 34.1 pg (25-34); MEAN PLATELET VOLUME 9.8 fL (7.4-10.4); PLATELET COUNT 185 K/uL (130-400); RED BLOOD COUNT 3.02 M/uL (4.2-5.4); WHITE BLOOD COUNT 23.21 K/uL (4.8-10.8)
[2016-11-22 06:58] LABS: CALCIUM 8.4 mg/dl (8.5-10.1); CREATININE 0.94 mg/dl (0.60-1.20); MAGNESIUM 2.4 mg/dl (1.8-2.4); POTASSIUM 3.6 mmol/L (3.5-5.1)
[2016-11-22 07:01] LABS: ALB/GLOB RATIO 0.6 (0.9-2); PHOSPHORUS 2.1 mg/dl (2.5-4.9)
[2016-11-22] MEDS: ALBUT/IPRATROP 3MG/0.5MG NEB 3 ML VIAL INH SCH ×4 (07:27→19:48)
[2016-11-22 07:42] LABS: BASO % 0.4 %; COMPLETE YES; EOS % 2.5 %; IG% 4.7 %; LYMPH % 53.5 %; LYMPH ABS # 12.42 K/uL (1.2-3.4); MONO % 4.1 %; NEUT % 34.8 %; SMUDGE CELLS PRESENT
[2016-11-22] MEDS: BOOST VANILLA PUDDING CUP PO SCH ×3 (08:00→17:00)
[2016-11-22] MEDS: CARVEDILOL 6.25 MG TAB PO SCH ×2 (08:08→21:24)
[2016-11-22] MEDS: SIMVASTATIN 20 MG TAB PO SCH (08:08)
[2016-11-22] MEDS: MAGNESIUM OXIDE 400 MG TAB PO SCH (08:08)
[2016-11-22] MEDS: DOCUSATE SODIUM/SENNA 50/8.6MG TAB PO SCH (08:08)
[2016-11-22] MEDS: LACTOBACILLUS ACIDOPHILUS 1 GM PACK PO SCH ×3 (08:08→17:00)
[2016-11-22] MEDS: PHENYTOIN SODIUM ER 30 MG CAP PO SCH (08:09)
[2016-11-22] MEDS: FUROSEMIDE 40 MG TAB PO SCH ×2 (08:09→17:02)
[2016-11-22] MEDS: ASPIRIN 81 MG ECTAB PO SCH (08:09)
[2016-11-22] MEDS: RANITIDINE HCL 150 MG TAB PO SCH (08:10)
[2016-11-22] MEDS: LOSARTAN POTASSIUM 25 MG TAB PO SCH (08:18)
[2016-11-22] MEDS: INSULIN ASPART 100 UNITS/ML 3 ML PEN SC SCH ×4 (08:23→21:31)
[2016-11-22] MEDS: INSULIN DETEMIR FLEXPEN/FLEX TOUCH 100 UNITS/ML 3ML SC SCH ×2 (08:25→21:30)
--- NOTE | 2016-11-22 15:58 | Progress Note ---
Subjective Date of Service: Nov 22, 2016. Subjective Pt evaluation today including: conversation w/ patient, physical exam, chart review, lab review, review of inpatient medication list Problem List Medical Problems: (1) Aspiration into airway Status: Acute (2) Congestive heart failure Status: Acute (3) Congestive heart failure Status: Acute (4) Elevated troponin I level Status: Acute (5) Hyperkalemia Status: Acute (6) Pneumonia Status: Acute Review of Systems Constitutional: No chills, No fatigue, No fever, No problem reported, No see HPI, No sweats, No weakness, No weight loss Eyes: No diplopia, No discharge, No eye pain, No problem reported, No redness, No see HPI, No worsening of vision ENT: No dental problems, No hearing loss, No nasal symptoms, No problem reported, No see HPI, No sore throat, No tinnitus, No trouble swallowing, No unusual epistaxis Respiratory: No cough, No dyspnea at rest, No dyspnea on exertion, No hemoptysis, No problem reported, No see HPI, No shortness of breath, No sputum, No wheezing Cardiac: No PND, No chest pain, No claudication, No edema, No orthopnea, No palpitations, No problem reported, No see HPI Abdomen: No GI bleeding, No constipation, No diarrhea, No nausea, No pain, No problem reported, No see HPI, No vomiting Musculoskeletal: No calf pain, No joint pain, No muscle pain, No problem reported, No see HPI, No swelling Female : No abnormal vaginal bleeding, No dysuria, No hematuria, No incontinence, No problem reported, No see HPI, No urinary frequency, No vaginal discharge Neurologic: No balance problems, No memory loss, No numbness/tingling, No paralysis, No problem reported, No see HPI, No vertigo, No weakness Psychiatric: No anhedonism, No anxiety, No depression symptoms, No insomnia, No problem reported, No see HPI, No substance abuse Heme: No abnormal bleeding/bruising, No clotting problems, No night sweats, No problem reported, No see HPI, No swollen lymph nodes Endo: No excessive thirst, No excessive urination, No fatigue, No problem reported, No see HPI Skin: No bleeding, No color change, No itch, No new/changing skin lesions, No problem reported, No rash, No see HPI Objective Vital Signs Date Time Temp Pulse Resp B/P Pulse Ox O2 Delivery O2 Flow Rate FiO2 11/22/16 15:45 Nasal Cannula 3.0 11/22/16 12:19 36.3 64 18 139/72 97 Nasal Cannula 3.0 11/22/16 12:00 Nasal Cannula 3.0 40 11/22/16 11:11 65 18 99 Nasal Cannula 3.0 11/22/16 08:00 Nasal Cannula 3.0 40 11/22/16 07:55 36.5 64 20 151/67 95 Nasal Cannula 3.0 11/22/16 07:27 60 18 98 Nasal Cannula 3.0 11/22/16 04:32 36.8 61 20 117/62 94 BiPAP 11/22/16 04:00 Nasal Cannula 3.0 11/22/16 00:00 BiPAP 3.0 11/21/16 23:48 37.1 58 20 147/73 98 Nasal Cannula 3.0 11/21/16 22:00 57 98 30 11/21/16 20:00 Nasal Cannula 3.0 11/21/16 18:59 68 18 99 Nasal Cannula 3.0 Physical Exam General Appearance: WD/WN, no apparent distress Eyes: normal inspection, PERRL ENT: normal ENT inspection, hearing grossly normal Neck: supple Respiratory/Chest: chest non-tender, lungs clear, normal breath sounds, no respiratory distress, no accessory muscle use Cardiovascular: regular rate, rhythm, no edema, no gallop, no JVD, no murmur Abdomen: normal bowel sounds, non tender, soft, no organomegaly, no pulsatile mass Extremities: normal range of motion, non-tender, normal inspection, no pedal edema, no calf tenderness 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, no motor/sensory deficits, alert, normal mood/affect, oriented x 3 Skin: normal color, warm/dry, no rash Laboratory Results Last 24 Hours Test 11/21/16 16:29 11/21/16 20:08 11/22/16 05:59 11/22/16 07:49 Bedside Glucose 319 mg/dl 290 mg/dl 181 mg/dl White Blood Count 23.21 K/uL Red Blood Count 3.02 M/uL Hemoglobin 10.3 g/dL Hematocrit 31.2 % Mean Corpuscular Volume 103.3 fL Mean Corpuscular Hemoglobin 34.1 pg Mean Corpuscular Hemoglobin Concent 33.0 g/dl Platelet Count 185 K/uL Mean Platelet Volume 9.8 fL Neutrophils (%) (Auto) 34.8 % Lymphocytes (%) (Auto) 53.5 % Monocytes (%) (Auto) 4.1 % Eosinophils (%) (Auto) 2.5 % Basophils (%) (Auto) 0.4 % Neutrophils # (Auto) 8.06 K/uL Lymphocytes # (Auto) 12.42 K/uL Monocytes # (Auto) 0.96 K/uL Eosinophils # (Auto) 0.58 K/uL Basophils # (Auto) 0.10 K/uL RDW Standard Deviation 51.4 fL RDW Coefficient of Variation 13.8 % Immature Granulocyte % (Auto) 4.7 % Immature Granulocyte # (Auto) 1.09 K/uL Nucleated RBC Absolute Count (auto) 0.06 K/uL Nucleated Red Blood Cells % 0.3 % Smudge Cells PRESENT Macrocytosis PRESENT Sodium Level 140 mmol/L Potassium Level 3.6 mmol/L Chloride Level 98 mmol/L Carbon Dioxide Level 34 mmol/L Anion Gap 8.0 mmol/L Blood Urea Nitrogen 39 mg/dl Creatinine 0.94 mg/dl Est Creatinine Clear Calc Drug Dose 48.3 ml/min Estimated GFR () 65.0 Estimated GFR (Non- 56.1 BUN/Creatinine Ratio 41.0 Random Glucose 164 mg/dl Calcium Level 8.4 mg/dl Phosphorus Level 2.1 mg/dl Magnesium Level 2.4 mg/dl Total Bilirubin 0.4 mg/dl Aspartate Amino Transf (AST/SGOT) 21 U/L Alanine Aminotransferase (ALT/SGPT) 19 U/L Alkaline Phosphatase 98 U/L Total Protein 6.1 gm/dl Albumin 2.4 gm/dl Globulin 3.7 gm/dl Albumin/Globulin Ratio 0.6 Test 11/22/16 11:46 Bedside Glucose 205 mg/dl Assessment and Plan 81 y/o female, with PMHx of systolic CHF, b-cell lymphoma,dementia, CVA, HTN, DM , hyperlipidemia, and seizure disorder, who presented to the ED from [facility] because of acute respiratory failure. Acute hypoxic respiratory failure secondary to below HCAP w sepsis POA (treated and resolved) negative rapid strept and sputum Cx off zosyn/levofloxacin day 04/09, will monitor off Abx procalcitonin is > 1 acute on chronic Systolic CHF POA initially was on low dose lasix drip 3ml/hr ,that was switched to lasix 20mg IV on 11/20,then 11/21 switched her to lasix 40mg po BID plus metolazone 2.5 mg every other day, she will need renal function check twice a week for 4 weeks then every 2 weeks, referred for disposition I/Os continue prn BIPAP started losartan 25 mg PO daily 11/21 continue coreg COPD exacerbation titrate steroids down continue bronchodilators Elevated troponin, likely secondary to severe demand ischemia: - echo fortunately unchanged, troponins without further elevation possible aspiration/dysphagia speech eval appreciated - continue modified diet one to one feeding Hypernatremia, resolevd S/P Diamox 500mg and Diuril 500mg IV once to potentiate hyponatremia s/p D5W at 30cc/hour over night hypernatremia resolved, D5 was stopped will continue to monitor sodium level CKD stage II appears to be at base line Hyperkalemia: - improving T2DM: - Pharmacy consulted for glycemic management Seizure disorder: - Continue Phenytoin - Checked Phenytoin level= 10.8 HTN: - started losartan 25 mg PO daily 11/21 - Hydralazine 10 mg IV PRN q6hrs for SBP >170, DBP >100 and HR <70 + IV Lopressor 5 mg q6 hrs -continue coreg Hyperlipidemia: - Hold Zocor 20 mg PO daily. Start Atorvastatin 40 mg PO daily GI Prophylaxis: - IV Pepcid - Maalox PRN - IV Zofran PRN - Colace and/or Milk of Mag PRN DVT prophylaxis: - Heparin 5000 units SQ q12 hrs - CANDACE and SCDs Dispo: - Resident of [facility] [place] ,referred for disposition and awaiting
[2016-11-22] MEDS: PHENYTOIN SODIUM ER 100 MG CAP PO SCH (21:24)
[2016-11-23] VITALS (16 sets, daily range): BP systolic 117–159; BP diastolic 59–79; PULSE 57–71; TEMP 36.4–37.1; O2SAT 95–99
[2016-11-23 06:22] LABS: HEMATOCRIT 32.4 % (37-47); MEAN CELL VOLUME 103.8 fL (80-100); MEAN CORPUSCULAR HEMOGLOBIN 34.3 pg (25-34); MEAN PLATELET VOLUME 10.1 fL (7.4-10.4); PLATELET COUNT 205 K/uL (130-400); RED BLOOD COUNT 3.12 M/uL (4.2-5.4); WHITE BLOOD COUNT 22.83 K/uL (4.8-10.8)
[2016-11-23] MEDS: HEPARIN SOD 5000 UNIT/0.5 ML CARP SQ SCH ×3 (06:32→20:45)
[2016-11-23 07:01] LABS: BUN/CREATININE RATIO 34.3 (10-20); CALCIUM 8.5 mg/dl (8.5-10.1); CREATININE 0.94 mg/dl (0.60-1.20); MAGNESIUM 2.2 mg/dl (1.8-2.4); POTASSIUM 3.7 mmol/L (3.5-5.1)
[2016-11-23 07:04] LABS: ALB/GLOB RATIO 0.7 (0.9-2); PHOSPHORUS 2.2 mg/dl (2.5-4.9)
[2016-11-23] MEDS: ALBUT/IPRATROP 3MG/0.5MG NEB 3 ML VIAL INH SCH ×4 (07:16→19:58)
[2016-11-23 07:33] LABS: BASO % 0.6 %; BASO ABS # 0.13 K/uL (0-0.2); COMPLETE YES; EOS % 2.5 %; IG% 3.6 %; LYMPH % 54.1 %; LYMPH ABS # 12.35 K/uL (1.2-3.4); MONO % 4.7 %; NEUT % 34.5 %; SMUDGE CELLS PRESENT
[2016-11-23] MEDS: LOSARTAN POTASSIUM 25 MG TAB PO SCH (08:55)
[2016-11-23] MEDS: BOOST VANILLA PUDDING CUP PO SCH ×3 (08:55→17:00)
[2016-11-23] MEDS: MAGNESIUM OXIDE 400 MG TAB PO SCH (08:56)
[2016-11-23] MEDS: METOLAZONE 2.5 MG TAB PO SCH (08:56)
[2016-11-23] MEDS: PHENYTOIN SODIUM ER 30 MG CAP PO SCH (08:56)
[2016-11-23] MEDS: CARVEDILOL 6.25 MG TAB PO SCH ×2 (08:57→20:40)
[2016-11-23] MEDS: ASPIRIN 81 MG ECTAB PO SCH (08:57)
[2016-11-23] MEDS: LACTOBACILLUS ACIDOPHILUS 1 GM PACK PO SCH ×3 (08:57→18:01)
[2016-11-23] MEDS: SIMVASTATIN 20 MG TAB PO SCH (08:57)
[2016-11-23] MEDS: RANITIDINE HCL 150 MG TAB PO SCH (08:57)
[2016-11-23] MEDS: FUROSEMIDE 40 MG TAB PO SCH ×2 (08:57→18:00)
[2016-11-23] MEDS: DOCUSATE SODIUM/SENNA 50/8.6MG TAB PO SCH (08:58)
[2016-11-23] MEDS: INSULIN ASPART 100 UNITS/ML 3 ML PEN SC SCH ×4 (09:02→20:45)
[2016-11-23] MEDS: INSULIN DETEMIR FLEXPEN/FLEX TOUCH 100 UNITS/ML 3ML SC SCH ×2 (09:03→20:44)
--- NOTE | 2016-11-23 16:52 | Progress Note ---
Subjective Date of Service: Nov 23, 2016. Subjective pt is lethargic but arousalable states does not feel well but cannot be specific Problem List Medical Problems: (1) Aspiration into airway Status: Acute (2) Congestive heart failure Status: Acute (3) Congestive heart failure Status: Acute (4) Elevated troponin I level Status: Acute (5) Hyperkalemia Status: Acute (6) Pneumonia Status: Acute Review of Systems Constitutional: No chills, No fever Respiratory: + dyspnea on exertion, + shortness of breath, No cough Cardiac: No chest pain, No edema Abdomen: No diarrhea, No nausea, No pain, No vomiting Female : No dysuria, No urinary frequency Objective Vital Signs Date Time Temp Pulse Resp B/P Pulse Ox O2 Delivery O2 Flow Rate FiO2 11/23/16 07:51 97 BiPAP 11/23/16 07:41 36.4 62 20 159/76 97 BiPAP 11/23/16 07:16 63 18 99 BiPAP/CPAP 30 11/23/16 04:00 36.8 62 20 133/73 97 BiPAP 11/23/16 04:00 BiPAP 3.0 11/23/16 02:30 63 95 30 11/23/16 00:04 36.6 57 20 132/78 99 Nasal Cannula 3.0 11/23/16 00:00 BiPAP 3.0 11/22/16 23:37 58 94 30 11/22/16 20:00 Nasal Cannula 3.0 11/22/16 19:49 63 18 98 Nasal Cannula 3.0 11/22/16 19:43 36.5 60 18 132/88 97 3.0 11/22/16 16:16 37.1 59 18 133/79 99 Mask 11/22/16 15:57 59 18 98 Nasal Cannula 3.0 11/22/16 15:45 Nasal Cannula 3.0 11/22/16 12:19 36.3 64 18 139/72 97 Nasal Cannula 3.0 11/22/16 12:00 Nasal Cannula 3.0 40 11/22/16 11:11 65 18 99 Nasal Cannula 3.0 Physical Exam General Appearance: WD/WN, + mild distress, + obese Respiratory/Chest: chest non-tender, + decreased breath sounds, + accessory muscle use Cardiovascular: regular rate, rhythm, + systolic murmur Abdomen: normal bowel sounds, non tender, soft Extremities: no calf tenderness, + pedal edema, + swelling Neurologic/Psychiatric: alert, oriented x 3 Laboratory Results Last 24 Hours Test 11/22/16 11:46 11/22/16 16:34 11/22/16 20:18 11/23/16 05:15 Bedside Glucose 205 mg/dl 219 mg/dl 184 mg/dl White Blood Count 22.83 K/uL Red Blood Count 3.12 M/uL Hemoglobin 10.7 g/dL Hematocrit 32.4 % Mean Corpuscular Volume 103.8 fL Mean Corpuscular Hemoglobin 34.3 pg Mean Corpuscular Hemoglobin Concent 33.0 g/dl Platelet Count 205 K/uL Mean Platelet Volume 10.1 fL Neutrophils (%) (Auto) 34.5 % Lymphocytes (%) (Auto) 54.1 % Monocytes (%) (Auto) 4.7 % Eosinophils (%) (Auto) 2.5 % Basophils (%) (Auto) 0.6 % Neutrophils # (Auto) 7.86 K/uL Lymphocytes # (Auto) 12.35 K/uL Monocytes # (Auto) 1.08 K/uL Eosinophils # (Auto) 0.58 K/uL Basophils # (Auto) 0.13 K/uL RDW Standard Deviation 52.5 fL RDW Coefficient of Variation 14.1 % Immature Granulocyte % (Auto) 3.6 % Immature Granulocyte # (Auto) 0.83 K/uL Smudge Cells PRESENT Test 11/23/16 05:35 11/23/16 07:18 Sodium Level 138 mmol/L Potassium Level 3.7 mmol/L Chloride Level 94 mmol/L Carbon Dioxide Level 35 mmol/L Anion Gap 9.0 mmol/L Blood Urea Nitrogen 32 mg/dl Creatinine 0.94 mg/dl Est Creatinine Clear Calc Drug Dose 47.6 ml/min Estimated GFR () 65.0 Estimated GFR (Non- 56.1 BUN/Creatinine Ratio 34.3 Random Glucose 158 mg/dl Calcium Level 8.5 mg/dl Phosphorus Level 2.2 mg/dl Magnesium Level 2.2 mg/dl Total Bilirubin 0.4 mg/dl Aspartate Amino Transf (AST/SGOT) 19 U/L Alanine Aminotransferase (ALT/SGPT) 17 U/L Alkaline Phosphatase 98 U/L Total Protein 6.1 gm/dl Albumin 2.5 gm/dl Globulin 3.6 gm/dl Albumin/Globulin Ratio 0.7 Bedside Glucose 149 mg/dl Assessment and Plan 81 y/o female, with PMHx of systolic CHF, b-cell lymphoma,dementia, CVA, HTN, DM , hyperlipidemia, and seizure disorder, who presented to the ED from [facility] because of acute respiratory failure. Acute hypoxic respiratory failure secondary gram neg w sepsis POA (treated and resolved) zosyn/levofloxacin day 7, does have aspiration. dysphagia speech eval appreciated - continue modified diet one to one feeding acute on chronic Systolic CHF POA, Elevated troponin, secondary to severe demand ischemia- echo unchanged, initially was on low dose lasix drip 3ml/hr ,that was switched to lasix 20mg IV on 11/20,then 11/21 switched her to lasix 40mg po BID plus metolazone 2.5 mg every other day, she will need renal function check twice a week for 4 weeks then every 2 weeks, referred for disposition HTN started losartan 25 mg PO daily 11/21 continue coreg Chronic Respiratory failure, COPD exacerbation taper steroids, continue bronchodilators, consider prn BIPAP Hypernatremia, resolved CKD stage II T2DM:- Pharmacy consulted for glycemic management Seizure disorder: Phenytoin level= 10.8 DVT prophylaxis:- Heparin 5000 units SQ q12 hrs Dispo:- Resident of [facility] ,referred for disposition and awaiting
[2016-11-23] MEDS: PHENYTOIN SODIUM ER 100 MG CAP PO SCH (20:41)
[2016-11-23] MEDS ORDERED: NURSING DECISION MEDICATION ORDER SCH (20:45)
[2016-11-23] MEDS ORDERED: MICONAZOLE NITRATE POWDER 43 GM EXT PRN (21:15)
[2016-11-24] VITALS (9 sets, daily range): BP systolic 117–143; BP diastolic 66–75; PULSE 59–79; TEMP 36.9–37; O2SAT 94–98
[2016-11-24] MEDS: HEPARIN SOD 5000 UNIT/0.5 ML CARP SQ SCH (05:33)
[2016-11-24 06:09] LABS: HEMATOCRIT 31.4 % (37-47); MEAN CELL VOLUME 104.3 fL (80-100); MEAN CORPUSCULAR HEMOGLOBIN 34.9 pg (25-34); MEAN CORPUSCULAR HGB CONC 33.4 g/dl (32-36); MEAN PLATELET VOLUME 10.2 fL (7.4-10.4); PLATELET COUNT 204 K/uL (130-400); RED BLOOD COUNT 3.01 M/uL (4.2-5.4); WHITE BLOOD COUNT 21.16 K/uL (4.8-10.8)
[2016-11-24 06:41] LABS: BUN/CREATININE RATIO 30.6 (10-20); CALCIUM 8.6 mg/dl (8.5-10.1); CREATININE 1.1 mg/dl (0.60-1.20); POTASSIUM 3.7 mmol/L (3.5-5.1)
[2016-11-24 07:08] LABS: BASO % 0.6 %; BASO ABS # 0.12 K/uL (0-0.2); COMPLETE YES; EOS % 2.6 %; IG% 2.3 %; LYMPH ABS # 11.84 K/uL (1.2-3.4); MONO % 5.2 %; NEUT % 33.3 %; STOMATOCYTE 1+
[2016-11-24 07:09] LABS: SMUDGE CELLS PRESENT
[2016-11-24] MEDS: ALBUT/IPRATROP 3MG/0.5MG NEB 3 ML VIAL INH SCH ×2 (07:27→11:22)
[2016-11-24] MEDS: LOSARTAN POTASSIUM 25 MG TAB PO SCH (08:51)
[2016-11-24] MEDS: CARVEDILOL 6.25 MG TAB PO SCH (08:51)
[2016-11-24] MEDS: DOCUSATE SODIUM/SENNA 50/8.6MG TAB PO SCH (08:51)
[2016-11-24] MEDS: PHENYTOIN SODIUM ER 30 MG CAP PO SCH (08:52)
[2016-11-24] MEDS: FUROSEMIDE 40 MG TAB PO SCH (08:52)
[2016-11-24] MEDS: RANITIDINE HCL 150 MG TAB PO SCH (08:52)
[2016-11-24] MEDS: ASPIRIN 81 MG ECTAB PO SCH (08:52)
[2016-11-24] MEDS: MAGNESIUM OXIDE 400 MG TAB PO SCH (08:53)
[2016-11-24] MEDS: SIMVASTATIN 20 MG TAB PO SCH (08:53)
[2016-11-24] MEDS: BOOST VANILLA PUDDING CUP PO SCH ×2 (08:53→12:46)
[2016-11-24] MEDS: LACTOBACILLUS ACIDOPHILUS 1 GM PACK PO SCH ×2 (08:54→12:47)
[2016-11-24] MEDS: INSULIN ASPART 100 UNITS/ML 3 ML PEN SC SCH ×2 (08:58→12:50)
[2016-11-24] MEDS: INSULIN DETEMIR FLEXPEN/FLEX TOUCH 100 UNITS/ML 3ML SC SCH (08:59)
[2016-11-24] MEDS ORDERED: PRD10 PO (11:29)
[2016-11-24] MEDS ORDERED: IPRASOL4 INH (11:29)
[2016-11-24] MEDS ORDERED: CZR25 PO (11:29)
[2016-11-24] MEDS ORDERED: FURO20TA PO (11:29)
[2016-11-24] MEDS ORDERED: NVLGIPEN SC (11:29)
[2016-11-24] MEDS ORDERED: LCTXP PO (11:29)
[2016-11-24] MEDS ORDERED: LVMIPEN SC (11:29)
[2016-11-24] MEDS ORDERED: MCTP EXT (11:29)
[2016-11-24] MEDS ORDERED: ZRX25 PO (11:29)
--- NOTE | 2016-11-24 11:32 | Discharge Instructions ---
Discharge Instructions Admission Reason for Admission: Acute Respiratory Failure, Chf Discharge Discharge Diagnosis / Problem: pneumonia, acute diastoic heart failure, chronic renal failure Discharge Goals Goal(s): Diagnostic testing, Therapeutic intervention Activity Recommendations Activity Level: Assistance Required Therapies: Physical Therapy, Occupational Therapy, Speech Therapy . Additional Information Patient informed of condition: Yes Advance Directives: Yes DNR: Yes Level of Care: Skilled Communicable Disease: No Prognosis: Stable Oxygen at (LPM): yes Sol Catheter: No Instructions / Follow-Up Instructions / Follow-Up 81 y/o female, with PMHx of systolic CHF, b-cell lymphoma,dementia, CVA, HTN, DM , hyperlipidemia, and seizure disorder, who presented to the ED from [facility] because of acute respiratory failure. Acute hypoxic respiratory failure secondary gram neg w sepsis POA (treated and resolved) completed zosyn/levofloxacin, does have aspiration. dysphagia speech eval appreciated - continue modified diet one to one feeding acute on chronic Systolic CHF POA, Elevated troponin, secondary to severe demand ischemia- echo unchanged, initially was on low dose lasix drip 3ml/hr ,that was switched to lasix 20mg IV on 11/20,then 11/21 switched her to lasix 40mg po BID plus metolazone 2.5 mg every other day, she will need renal function check twice a week unitl stable HTN reduced losartan 25 mg PO daily 11/21 continue coreg Chronic Respiratory failure, COPD exacerbation taper steroids, continue bronchodilators, consider hs BIPAP Hypernatremia, resolved CKD stage II T2DM:- Pharmacy consulted for glycemic management has made Levemir sliding scale , and aspartate sliding Seizure disorder: Phenytoin level= 10.8 Current Hospital Diet Patient's current hospital diet: Diabetes Type 2 Diet, Low Sodium Diet (2gm Na) Discharge Diet Recommended Diet: Low Sodium Diet (2gm Na), Renal Diet Pending Studies Studies pending at discharge: no Laboratory Results Hemoglobin A1c Test 10/15/16 05:45 Range/Units Estimated Average Glucose 128 mg/dl Hemoglobin A1c 6.1 H 4.5-5.6 % Lipid Panel Test 11/16/16 09:41 Range/Units Triglycerides Level 139 0-150 mg/dl Cholesterol Level 104 0-200 mg/dl HDL Cholesterol 39 mg/dl Cholesterol/HDL Ratio 2.7 LDL Cholesterol, Calculated 37 mg/dl Medical Emergencies . Who to Call and When: Medical Emergencies: If at any time you feel your situation is an emergency, please call 911 immediately. . Non-Emergent Contact Non-Emergency issues call your: Primary Care Provider . . "Provider Documentation" section prepared by Candelario Redd. Core Measure Problem Core Measures: None
--- NOTE | 2016-11-24 16:58 | Discharge Summary ---
Discharge Summary Admission Date: Nov 12, 2016 at 12:46 Discharge Date: Nov 24, 2016 Discharge Disposition: residential facility Principal Diagnosis: acute hypoxic respiratory failure, gram negative pneumonia Immunizations: History of Tetanus Vaccine?: 1994 History of Pneumococcal: History of Hepatitis B Vaccine: No Medication Reconciliation New Medications: Insulin Aspart (Novolog Flexpen) 100 Units/Ml Inj 0 UNITS SC ACHS, #1 PEN Insulin Detemir (Levemir Flextouch) 100 Unit/Ml Inj 0 UNIT SC BID, #1 PEN Ipratropium-Albuterol (Duoneb) 3 Ml Nebu 3 ML INH QIDR, #120 DOSE Lactobacillus Acidophilus (Lactinex Granules) 1 Gm Pack 1 GM PO TIDM, #90 DOSE Losartan Potassium (Losartan Potassium) 25 Mg Tab 25 MG PO QAM, #90 TAB Metolazone (Metolazone) 2.5 Mg Tab 2.5 MG PO Q2D@0830, #30 TAB Miconazole Nitrate (Desenex Shake Powder) 43 Appln/43 Gm Powd 1 APPLN EXT UD PRN for Affected Skin Folds, #1 BTL Prednisone (Prednisone) 10 Mg Tab 10 MG PO DAILY, #30 TAB Changed Medications: Furosemide (Lasix) 20 Mg Tab 40 MG PO BID for 30 Days (Changed from: BID@1600) Continued Medications: Acetaminophen (Tylenol) 325 Mg Tab 650 MG PO Q4 PRN for Pain or Fever, TAB Aspirin (Aspirin Ec) 81 Mg Tab 81 MG PO DAILY Carvedilol (Carvedilol) 6.25 Mg Tab 6.25 MG PO BID for 30 Days, #60 TAB Cholecalciferol (Vitamin D3) 1,000 Unit Tab 1000 UNITS PO DAILY for 90 Days, TAB 3 Refills Magnesium Oxide (Magnesium-Oxide) 400 Mg Tab 400 MG PO QAM for 30 Days, #30 TAB Phenytoin Sodium (Dilantin) 100 Mg Cap 100 MG PO DAILY, CAP Phenytoin Sodium Extended (Dilantin) 30 Mg Cap 60 MG PO UD, CAP DAILY AT 16:30 PM Ranitidine (Zantac) 150 Mg Tab 150 MG PO DAILY, TAB Sennosides-Docusate Sodium (Karissa-Colace) 1 Tab Tab 1 TAB PO DAILY Simvastatin (Zocor) 20 Mg Tab 20 MG PO QPM, TAB Sodium Phosphate/Biphosphate (Fleet Enema) Beth 1 EA [place] Q4D PRN for Constipation, BTL Discontinued Medications: Albuterol Sulf (Albuterol Sulfate) 2.5 Mg/0.5 Ml Nebu 0.5 MG INH Q4 Guaifenesin (Mucinex Maximum Strength) 1,200 Mg Tab 1200 MG PO BID for 15 Days, #3 TAB Insulin Aspart (Novolog Flexpen) 100 Units/Ml Inj 30 UNITS SC DAILY daily at 0830a Insulin Aspart (Novolog Flexpen) 100 Units/Ml Inj 45 UNITS SC BID daily at 1130am and 1630pm Insulin Aspart (Novolog Flexpen) 100 Units/Ml Inj SC prn sliding scale for blood sugars 351-400 give 8 units, 401-450 give 12 units, 451-500 give 16 units and anything over 500 give 18 units and recheck in 2 hours Insulin Detemir (Levemir Flextouch) 100 Unit/Ml Inj 20 UNITS SC BID Losartan Potassium (Cozaar) 100 Mg Tab 100 MG PO DAILY, TAB Potassium Chloride (Klor-Con M20) 20 Meq Tabcr 20 MEQ PO BID for 30 Days Prednisone (Prednisone) 20 Mg Tab 20 MG PO, TAB give 60 mg daily for 2 days, then 50 mg daily for 2 days, then 40 mg daily for 2 days, then 30 mg daily for 2 days, then 20mg daily for 2 days, then 10 mg daily for 2 days, then stop. 11/12/16 is day 2 of 60mg dose Discharge Exam Review of Systems: Constitutional: + weakness, No chills, No fever Respiratory: No cough, No dyspnea on exertion, No shortness of breath, No sputum Cardiovascular: No chest pain, No edema Abdomen: No diarrhea, No nausea, No pain, No vomiting Musculoskeletal: No joint pain, No muscle pain Genitourinary - Female: No dysuria, No urinary frequency Neurologic: + memory loss, + weakness Psychiatric: + depression symptoms, No anxiety Physical Exam: General Appearance: + mild distress, + obese Neck: supple, no JVD Respiratory/Chest: chest non-tender, lungs clear, normal breath sounds Cardiovascular: regular rate, rhythm, no murmur Abdomen / GI: normal bowel sounds, non tender, soft Extremities: no pedal edema, normal range of motion Neurologic/Psychiatric: alert, + disoriented Skin: normal color, warm/dry Hospital Course 81 y/o female, with PMHx of systolic CHF, b-cell lymphoma,dementia, CVA, HTN, DM , hyperlipidemia, and seizure disorder, who presented to the ED from [facility] because of acute respiratory failure. Acute hypoxic respiratory failure secondary gram neg w sepsis POA (treated and resolved) completed zosyn/levofloxacin, does have aspiration. dysphagia speech eval appreciated - continue modified diet one to one feeding acute on chronic Systolic CHF POA, Elevated troponin, secondary to severe demand ischemia- echo unchanged, initially was on low dose lasix drip 3ml/hr ,that was switched to lasix 20mg IV on 11/20,then 11/21 switched her to lasix 40mg po BID plus metolazone 2.5 mg every other day, she will need renal function check twice a week unitl stable HTN reduced losartan 25 mg PO daily 11/21 continue coreg Chronic Respiratory failure, COPD exacerbation taper steroids, continue bronchodilators, consider hs BIPAP Hypernatremia, resolved CKD stage II T2DM:- Pharmacy consulted for glycemic management has made Levemir sliding scale , and aspartate sliding Seizure disorder: Phenytoin level= 10.8 Dispo:- Resident of [facility] ,referred for disposition and awaiting Total Time Spent: Greater than 30 minutes This includes examination of the patient, discharge planning, medication reconciliation, and communication with other providers. Discharge Instructions Please refer to the electronic Patient Visit Report (Discharge Instructions) for additional information.
== END 2016-11-24 15:22 | DRG 871 ==
LOC: CANRESERV → ENRESERVTM → ENRESERVDT → ENRESERV → C.EDB 09:55 → EDBEDREQ 11:59 → C.MSICU 12:46 → EDBEDREQSVC 12:46 → C.MED 11-18 18:11
PROVIDERS: ADMIT Family Medicine; ATTEND Internal Medicine
DX: A41.9 Sepsis, unspecified organism (principal); J15.6 Pneumonia due to other Gram-negative bacteria; C83.30 Diffuse large B-cell lymphoma, unspecified site; J96.20 Acute and chronic respiratory failure, unspecified whether with hypoxia or hypercapnia; J44.1 Chronic obstructive pulmonary disease with (acute) exacerbation; G93.41 Metabolic encephalopathy; E87.0 Hyperosmolality and hypernatremia; N17.9 Acute kidney failure, unspecified; I69.959 Hemiplegia and hemiparesis following unspecified cerebrovascular disease affecting unspecified side; J69.0 Pneumonitis due to inhalation of food and vomit; I50.23 Acute on chronic systolic (congestive) heart failure; I12.9 Hypertensive chronic kidney disease with stage 1 through stage 4 chronic kidney disease, or unspecified chronic kidney disease; N18.2 Chronic kidney disease, stage 2 (mild); F03.90 Unspecified dementia, unspecified severity, without behavioral disturbance, psychotic disturbance, mood disturbance, and anxiety; I69.998 Other sequelae following unspecified cerebrovascular disease; G40.909 Epilepsy, unspecified, not intractable, without status epilepticus; Z66 Do not resuscitate; R65.20 Severe sepsis without septic shock

== ENCOUNTER → 2016-11-26 | Outpatient (CLI) | payer BC, OTHER ==
[~2016-11-26] MED LIST changes: -ALBU0.5N2 NEB; +CHOL1000 PO; -CHOL100010 PO; +CZR25 PO; +IPRASOL4 INH; +LCTXP PO; -LEVO-459 PO; -LOSA100T65 PO; -MAGNSUS5 PO; -MCRK20 PO; +MCTP EXT; -NVLGI SC; +NVLGIPEN SC; +PRD10 PO; +ZRX25 PO
[2016-11-26 09:14] LABS: BLOOD UREA NITROGEN 39 mg/dl (7-18); BUN/CREATININE RATIO 32.8 (10-20); CALCIUM 8.8 mg/dl (8.5-10.1); CARBON DIOXIDE 32 mmol/L (21-32); CHLORIDE 94 mmol/L (98-107); GLUCOSE 224 mg/dl (70-99); POTASSIUM 3.8 mmol/L (3.5-5.1); SODIUM 134 mmol/L (136-145)
== END ==
LOC: C.LABCC 08:40
PROVIDERS: ATTEND Internal Medicine
DX: N18.9 Chronic kidney disease, unspecified (principal)

== ENCOUNTER → 2016-12-01 | Outpatient (CLI) | payer BC, OTHER ==
[2016-12-01 08:29] LABS: BLOOD UREA NITROGEN 30 mg/dl (7-18); BUN/CREATININE RATIO 30.3 (10-20); CALCIUM 8.9 mg/dl (8.5-10.1); CARBON DIOXIDE 35 mmol/L (21-32); CHLORIDE 87 mmol/L (98-107); GLUCOSE 203 mg/dl (70-99); POTASSIUM 3.2 mmol/L (3.5-5.1); SODIUM 131 mmol/L (136-145)
== END ==
LOC: C.LABCC 07:51
PROVIDERS: ATTEND Internal Medicine
DX: N18.9 Chronic kidney disease, unspecified (principal)

== ENCOUNTER → 2016-12-03 | Outpatient (CLI) | payer BC, OTHER ==
[2016-12-03 08:50] LABS: BLOOD UREA NITROGEN 31 mg/dl (7-18); BUN/CREATININE RATIO 31.2 (10-20); CALCIUM 9.2 mg/dl (8.5-10.1); CARBON DIOXIDE 36 mmol/L (21-32); CHLORIDE 86 mmol/L (98-107); GLUCOSE 167 mg/dl (70-99); POTASSIUM 3.1 mmol/L (3.5-5.1); SODIUM 134 mmol/L (136-145)
== END ==
LOC: C.LABCC 07:57
PROVIDERS: ATTEND Internal Medicine
DX: N18.9 Chronic kidney disease, unspecified (principal)

== ENCOUNTER → 2016-12-07 | Outpatient (CLI) | payer BC, OTHER ==
[2016-12-07 08:47] LABS: BLOOD UREA NITROGEN 29 mg/dl (7-18); BUN/CREATININE RATIO 30.4 (10-20); CALCIUM 8.7 mg/dl (8.5-10.1); CARBON DIOXIDE 36 mmol/L (21-32); CHLORIDE 85 mmol/L (98-107); CREATININE 0.96 mg/dl (0.60-1.20); GLUCOSE 227 mg/dl (70-99); POTASSIUM 3.1 mmol/L (3.5-5.1); SODIUM 133 mmol/L (136-145)
== END ==
LOC: C.LABCC 08:04
PROVIDERS: ATTEND Internal Medicine
DX: N18.9 Chronic kidney disease, unspecified (principal)

== ENCOUNTER → 2016-12-10 | Outpatient (CLI) | payer BC, OTHER ==
[2016-12-10 08:31] LABS: BLOOD UREA NITROGEN 33 mg/dl (7-18); BUN/CREATININE RATIO 27.4 (10-20); CALCIUM 8.8 mg/dl (8.5-10.1); CARBON DIOXIDE 35 mmol/L (21-32); CHLORIDE 82 mmol/L (98-107); GLUCOSE 307 mg/dl (70-99); POTASSIUM 3.8 mmol/L (3.5-5.1); SODIUM 130 mmol/L (136-145)
[2016-12-10 08:42] LABS: BETA-HYDROXYBUTYRATE 2.11 mg/dL (0.2-2.81)
== END ==
LOC: C.LABCC 07:57
PROVIDERS: ATTEND Internal Medicine
DX: N18.9 Chronic kidney disease, unspecified (principal)

== ENCOUNTER → 2016-12-14 | Outpatient (CLI) | payer BC, OTHER ==
[2016-12-14 08:53] LABS: BLOOD UREA NITROGEN 36 mg/dl (7-18); BUN/CREATININE RATIO 35.7 (10-20); CALCIUM 8.9 mg/dl (8.5-10.1); CARBON DIOXIDE 40 mmol/L (21-32); CHLORIDE 85 mmol/L (98-107); GLUCOSE 197 mg/dl (70-99); MAGNESIUM 1.9 mg/dl (1.8-2.4); POTASSIUM 3.6 mmol/L (3.5-5.1); SODIUM 133 mmol/L (136-145)
== END ==
LOC: C.LABCC 08:27
PROVIDERS: ATTEND Internal Medicine
DX: N18.9 Chronic kidney disease, unspecified (principal); E87.1 Hypo-osmolality and hyponatremia

== ENCOUNTER → 2016-12-17 | Outpatient (CLI) | payer BC, OTHER ==
[2016-12-17 09:07] LABS: BLOOD UREA NITROGEN 35 mg/dl (7-18); CALCIUM 8.5 mg/dl (8.5-10.1); CARBON DIOXIDE 40 mmol/L (21-32); CHLORIDE 87 mmol/L (98-107); GLUCOSE 171 mg/dl (70-99); POTASSIUM 3.5 mmol/L (3.5-5.1); SODIUM 134 mmol/L (136-145)
== END ==
LOC: C.LABCC 08:21
PROVIDERS: ATTEND Internal Medicine
DX: N18.9 Chronic kidney disease, unspecified (principal)

== ENCOUNTER → 2016-12-21 | Outpatient (CLI) | payer BC, OTHER ==
[2016-12-21 09:21] LABS: BLOOD UREA NITROGEN 37 mg/dl (7-18); BUN/CREATININE RATIO 38.6 (10-20); CARBON DIOXIDE 37 mmol/L (21-32); CHLORIDE 88 mmol/L (98-107); CREATININE 0.95 mg/dl (0.60-1.20); GLUCOSE 166 mg/dl (70-99); POTASSIUM 3.3 mmol/L (3.5-5.1); SODIUM 135 mmol/L (136-145)
== END ==
LOC: C.LABCC 08:25
PROVIDERS: ATTEND Internal Medicine
DX: N18.9 Chronic kidney disease, unspecified (principal)

== ENCOUNTER → 2016-12-24 | Outpatient (CLI) | payer BC, OTHER ==
[2016-12-24 08:21] LABS: BLOOD UREA NITROGEN 32 mg/dl (7-18); BUN/CREATININE RATIO 28.8 (10-20); CALCIUM 8.6 mg/dl (8.5-10.1); CARBON DIOXIDE 39 mmol/L (21-32); CHLORIDE 87 mmol/L (98-107); GLUCOSE 183 mg/dl (70-99); POTASSIUM 3.3 mmol/L (3.5-5.1); SODIUM 135 mmol/L (136-145)
== END ==
LOC: C.LABCC 07:51
PROVIDERS: ATTEND Internal Medicine
DX: E87.6 Hypokalemia (principal)

== ENCOUNTER → 2016-12-28 | Outpatient (CLI) | payer BC, OTHER ==
[2016-12-28 10:11] LABS: BLOOD UREA NITROGEN 39 mg/dl (7-18); BUN/CREATININE RATIO 35.2 (10-20); CALCIUM 8.5 mg/dl (8.5-10.1); CARBON DIOXIDE 40 mmol/L (21-32); CHLORIDE 90 mmol/L (98-107); GLUCOSE 181 mg/dl (70-99); POTASSIUM 3.3 mmol/L (3.5-5.1); SODIUM 137 mmol/L (136-145)
== END ==
LOC: C.LABCC 09:06
PROVIDERS: ATTEND Internal Medicine
DX: N18.9 Chronic kidney disease, unspecified (principal); E87.6 Hypokalemia

== ENCOUNTER → 2016-12-29 | Outpatient (CLI) | payer BC, OTHER | LOC: C.LABCC 08:10 | PROVIDERS: ATTEND Internal Medicine | DX: G40.909 Epilepsy, unspecified, not intractable, without status epilepticus (principal) ==

== ENCOUNTER → 2017-01-01 | Outpatient (CLI) | payer BC, OTHER ==
[2017-01-01 08:28] LABS: BLOOD UREA NITROGEN 43 mg/dl (7-18); BUN/CREATININE RATIO 36.2 (10-20); CALCIUM 8.7 mg/dl (8.5-10.1); CARBON DIOXIDE 38 mmol/L (21-32); CHLORIDE 87 mmol/L (98-107); GLUCOSE 259 mg/dl (70-99); POTASSIUM 3.4 mmol/L (3.5-5.1); SODIUM 134 mmol/L (136-145)
== END | disposition home or self-care (01) ==
LOC: C.LABCC 07:51
PROVIDERS: ATTEND Internal Medicine
DX: E87.1 Hypo-osmolality and hyponatremia (principal)

== ENCOUNTER → 2017-01-11 | Outpatient (CLI) | payer BC, OTHER ==
[2017-01-11 09:18] LABS: BLOOD UREA NITROGEN 48 mg/dl (7-18); CALCIUM 8.9 mg/dl (8.5-10.1); CARBON DIOXIDE 38 mmol/L (21-32); CHLORIDE 89 mmol/L (98-107); GLUCOSE 237 mg/dl (70-99); POTASSIUM 3.3 mmol/L (3.5-5.1); SODIUM 134 mmol/L (136-145)
== END ==
LOC: C.LABCC 08:10
PROVIDERS: ATTEND Internal Medicine
DX: E87.6 Hypokalemia (principal)

== ENCOUNTER → 2017-01-19 | Outpatient (CLI) | payer BC, OTHER ==
[2017-01-19 08:56] LABS: BLOOD UREA NITROGEN 31 mg/dl (7-18); BUN/CREATININE RATIO 34.5 (10-20); CARBON DIOXIDE 38 mmol/L (21-32); CHLORIDE 92 mmol/L (98-107); CREATININE 0.89 mg/dl (0.60-1.20); GLUCOSE 187 mg/dl (70-99); MAGNESIUM 1.9 mg/dl (1.8-2.4); POTASSIUM 3.6 mmol/L (3.5-5.1); SODIUM 136 mmol/L (136-145)
== END ==
LOC: C.LABCC 08:25
PROVIDERS: ATTEND Internal Medicine
DX: E87.6 Hypokalemia (principal)

== ENCOUNTER → 2017-01-25 | Outpatient (CLI) | payer BC, OTHER ==
[2017-01-25 08:21] LABS: HEMATOCRIT 38.5 % (37-47); MEAN CELL VOLUME 104.9 fL (80-100); MEAN CORPUSCULAR HEMOGLOBIN 34.3 pg (25-34); MEAN CORPUSCULAR HGB CONC 32.7 g/dl (32-36); MEAN PLATELET VOLUME 10.5 fL (7.4-10.4); PLATELET COUNT 180 K/uL (130-400); RED BLOOD COUNT 3.67 M/uL (4.2-5.4); WHITE BLOOD COUNT 14.72 K/uL (4.8-10.8)
[2017-01-25 09:22] LABS: BASO % 0.4 %; BASO ABS # 0.06 K/uL (0-0.2); COMPLETE YES; EOS % 5.4 %; IG% 0.5 %; LYMPH % 50.4 %; LYMPH ABS # 7.42 K/uL (1.2-3.4); MONO % 7.9 %; NEUT % 35.4 %; SMUDGE CELLS PRESENT
[2017-01-25 10:16] LABS: ESTIMATED AVERAGE GLUCOSE 220 mg/dl; HA1C FLAG Normal (Normal)
== END ==
LOC: C.LABCC 07:52
PROVIDERS: ATTEND Internal Medicine
DX: E11.9 Type 2 diabetes mellitus without complications (principal); D64.9 Anemia, unspecified

== ENCOUNTER → 2017-02-12 | Outpatient (CLI) | payer BC, OTHER ==
[2017-02-12 10:48] LABS: ESTIMATED AVERAGE GLUCOSE 223 mg/dl; HA1C FLAG Normal (Normal)
== END ==
LOC: C.LABCC 07:47
PROVIDERS: ATTEND Internal Medicine
DX: E11.9 Type 2 diabetes mellitus without complications (principal)

== ENCOUNTER → 2017-02-25 | Outpatient (CLI) | payer BC, OTHER ==
[2017-02-25 10:03] LABS: CHOLESTEROL/HDL RATIO 1.8
== END | disposition home or self-care (01) ==
LOC: C.LABCC 07:54
PROVIDERS: ATTEND Internal Medicine
DX: E78.5 Hyperlipidemia, unspecified (principal)

== ENCOUNTER → 2017-04-22 | Outpatient (CLI) | payer BC, OTHER ==
[2017-04-22 17:27] LABS: URINE APPEARANCE CLEAR (CLEAR); URINE BILIRUBIN NEG (NEG); URINE COLOR YELLOW; URINE NITRITE NEG (NEG); URINE PH 5.5 (4.5-7.5); URINE SPECIFIC GRAVITY 1.015 (1.000-1.030); UROBILINOGEN NEG (NEG); ZZURINE CULT IF INDIC CATH NO
[2017-04-22 17:32] LABS: MANUAL MICROSCOPIC REQUIRED? NO; REVIEW REQ? NO
== END ==
LOC: C.LABSPEC 16:51
PROVIDERS: ATTEND Internal Medicine
DX: R41.82 Altered mental status, unspecified (principal)

== ENCOUNTER → 2017-05-28 | Outpatient (CLI) | payer BC, OTHER ==
[2017-05-28 09:19] LABS: ESTIMATED AVERAGE GLUCOSE 148 mg/dl; HA1C FLAG Normal (Normal)
== END ==
LOC: C.LABCC 08:18
PROVIDERS: ATTEND Internal Medicine
DX: E11.9 Type 2 diabetes mellitus without complications (principal)